=== PATIENT | male | born 1955 | race Caucasian/White ===

== ENCOUNTER 2016-11-03 13:53 | Emergency (ER) | payer BC ==
[2016-11-03 14:00] VITALS: BMI 27.1
--- NOTE | 2016-11-03 14:41 | PDOC ---
History of Present Illness - General History Source: Patient Exam Limitations: No Limitations - History of Present Illness Initial Comments: 11/03/16 14:56 The patient is a 60 year old male presenting with his , with a significant past medical history of CAD, HLD, kidney stones and BPH, who presents to the emergency department with left side flank pain onset today. He describes the pain as ranging from moderate to severe, rating it a 8/10 in severity. He denies any radiation or modifying factors. He notes that he took Percocet today , with little to no relief of his symptoms. He reports that last week he had a lithotripsy procedure on his right kidney for kidney stones. The patient denies chest pain, shortness of breath, headache and dizziness. Denies fever, chills, nausea, vomit, diarrhea and constipation. Denies dysuria, frequency, urgency and hematuria. Allergies: None Past surgical history: lithotripsy Social history: No alcohol, tobacco or drug use reported PMD - Dr. Shaka Bright <Ishmael Goss - Last Filed: 11/03/16 14:56> <Aleena Dimas - Last Filed: 11/04/16 13:19> - General Chief Complaint: Pain Stated Complaint: LT SIDE PAIN Time Seen by Provider: 11/03/16 14:32 Past History <Ishmael Goss - Last Filed: 11/03/16 14:56> - Past Medical History Cardiac Disorders: Yes Hypercholesterolemia: Yes Kidney Stones: Yes Suicide Attempt (Hx): No Other medical history: BPH - Immunization History Immunization Up to Date: Yes - Psycho/Social/Smoking Cessation Hx Anxiety: No Suicidal Ideation: No Smoking History: Never smoked Have you smoked in the past 12 months: No Hx Alcohol Use: No Drug/Substance Use Hx: No Substance Use Type: None <Aleena Dimas - Last Filed: 11/04/16 13:19> - Past Medical History Allergies/Adverse Reactions: Allergies Allergy/AdvReac Type Severity Reaction Status Date / Time No Known Allergies Allergy Verified 11/03/16 14:00 Home Medications: Ambulatory Orders Aspirin [ASA -] 1 tab PO DAILY 11/03/16 Atorvastatin Ca [Lipitor] 1 tab PO DAILY 11/03/16 Ciprofloxacin [Cipro -] 1 tab PO BID 11/03/16 Lisinopril [Zestril] 1 tab PO DAILY 11/03/16 Metoprolol Succinate [Toprol XL -] 0.5 tab PO DAILY 11/03/16 Oxycodone HCl/Acetaminophen [Percocet 5-325 mg Tablet] 1 tab PO Q4H PRN Tamsulosin HCl [Flomax] 1 tab PO DAILY 11/03/16 Ticagrelor [Brilinta] 90 mg PO BID 11/03/16 Review of Systems - Review of Systems Able to Perform ROS?: Yes Comments:: 11/03/16 14:57 GENERAL/CONSTITUTIONAL: No fever or chills. No weakness. HEAD, EYES, EARS, NOSE AND THROAT: No change in vision. No ear pain or discharge. No sore throat. CARDIOVASCULAR: No chest pain or shortness of breath RESPIRATORY: No cough, wheezing, or hemoptysis. GASTROINTESTINAL: No nausea, vomiting, diarrhea or constipation. GENITOURINARY: +Left flank pain. No dysuria, frequency, or change in urination. MUSCULOSKELETAL: No joint or muscle swelling or pain. No neck or back pain. SKIN: No rash NEUROLOGIC: No headache, vertigo, loss of consciousness, or change in strength/ sensation. ENDOCRINE: No increased thirst. No abnormal weight change HEMATOLOGIC/LYMPHATIC: No anemia, easy bleeding, or history of blood clots. ALLERGIC/IMMUNOLOGIC: No hives or skin allergy. <Ishmael Goss - Last Filed: 11/03/16 14:56> *Physical Exam - Vital Signs Last Vital Signs Temp Pulse Resp BP Pulse Ox 97.5 F L 20 L 59 H 122/71 97 11/03/16 13:58 11/03/16 13:58 11/03/16 13:58 11/03/16 13:58 11/03/16 13:58 - Physical Exam Comments: 11/03/16 14:57 GENERAL: Awake, alert, and fully oriented, in no acute distress HEAD: No signs of trauma, normocephalic, atraumatic EYES: PERRLA, EOMI, sclera anicteric, conjunctiva clear ENT: Auricles normal inspection, hearing grossly normal, nares patent, oropharynx clear without exudates. Moist mucosa NECK: Normal ROM, supple, no lymphadenopathy, JVD, or masses LUNGS: No distress, speaks full sentences, clear to auscultation bilaterally HEART: Regular rate and rhythm, normal S1 and S2, no murmurs, rubs or gallops, peripheral pulses normal and equal bilaterally. ABDOMEN: Soft, nontender, normoactive bowel sounds. No guarding, no rebound. No masses EXTREMITIES: Normal inspection, Normal range of motion, no edema. No clubbing or cyanosis. NEUROLOGICAL: Cranial nerves II through XII grossly intact. Normal speech, normal gait, no focal sensorimotor deficits SKIN: Warm, Dry, normal turgor, no rashes or lesions noted. <Ishmael Goss - Last Filed: 11/03/16 14:56> - Vital Signs Last Vital Signs Temp Pulse Resp BP Pulse Ox 97.5 F L 20 L 59 H 122/71 97 11/03/16 13:58 11/03/16 13:58 11/03/16 13:58 11/03/16 13:58 11/03/16 13:58 <Aleena Dimas - Last Filed: 11/04/16 13:19> ED Treatment Course - LABORATORY CBC & Chemistry Diagram: 11/03/16 15:00 11/03/16 15:00 <Aleena Dimas - Last Filed: 11/04/16 13:19> Medical Decision Making - Medical Decision Making 11/03/16 14:53 D/w Dr. Bright via phone. Will admit. Plan for lithotripsy. 11/03/16 16:[address] Young. Awaiting CT to further evaluate the L sided stones, possible hydro; then endorse to hospitalist service for admission. <Aleena Dimas - Last Filed: 11/04/16 13:19> *DC/Admit/Observation/Transfer - Attestations Scribe Attestion: 11/03/16 14:58 Documentation prepared by Ishmael Goss, acting as faculty i on call medical assistant for Aleena Dimas MD <Ishmael Goss - Last Filed: 11/03/16 14:56> <Aleena Dimas - Last Filed: 11/04/16 13:19> Diagnosis at time of Disposition: Kidney stone - Discharge Dispostion Disposition: HOME Condition at time of disposition: Improved - Referrals Referrals: Trey Weir MD [Primary Care Provider] - Robert Bright MD [Staff Physician] - - Patient Instructions Printed Discharge Instructions: DI for Kidney Stones Additional Instructions: Dr bright would like you to go to the office on Saturday at noon The plan will be for lithotripsy on Saturday Return to the ER for intractable pain, nausea, vomiting, fevers, chills, inability to tolerate foods, liquids or medications by mouth Print Language: KHMER
[2016-11-03] MEDS ORDERED: morphine CARPU-JECT 4 MG/1 ML DISP.SYRIN IVPUSH ONE (14:46)
[2016-11-03] MEDS ORDERED: SODIUM CHLORIDE 1,000 ML IV STA (14:46)
[2016-11-03] MEDS ORDERED: KETOROLAC TROMETHAMINE 30 MG/1 ML VIAL IVPUSH ONE (14:46)
[2016-11-03] MEDS ORDERED: KETOROLAC TROMETHAMINE 30 MG/1 ML VIAL ONE (14:52)
[2016-11-03] MEDS ORDERED: morphine CARPU-JECT 4 MG/1 ML DISP.SYRIN ONE (14:52)
[2016-11-03 15:06] LABS: BASOPHIL 0.4 % (0-2.0); EOSINOPHIL 2.1 % (0-4.5); MCH 30.2 pg (25.7-33.7); MCHC 33.5 g/dl (32.0-35.9); MEAN CELL VOLUME 90.1 fl (80-96); MEAN PLT VOLUME 8.4 fl (7.5-11.1); NEUTROPHILS 78.9 % (42.8-82.8); PLATELET COUNT 181 K/MM3 (134-434); RDW 14.8 % (11.9-15.9); WHITE BLOOD COUNT 8.9 K/mm3 (4.0-10.0)
[2016-11-03 15:14] LABS: INR 1.36 (0.82-1.09); PROTHROMBIN TIME (PATIENT) 15.1 SEC (9.98-11.88)
[2016-11-03 15:28] LABS: ALBUMIN 3.7 g/dl (3.4-5.0); BILIRUBIN,TOTAL 0.8 mg/dL (0.2-1.0); CALCIUM 8.7 mg/dL (8.5-10.1); CREATININE 1.3 mg/dL (0.7-1.3); TOT PROT 6.9 g/dl (6.4-8.2)
[2016-11-03 16:51] LABS: URINE APPEARANCE SLCLOUDY; URINE BILIRUBIN NEGATIVE (NEGATIVE); URINE COLOR YELLOW; URINE GLUCOSE (UA) NEGATIVE (NEGATIVE); URINE KETONE NEGATIVE (NEGATIVE); URINE NITRITE NEGATIVE (NEGATIVE); URINE UROBILINOGEN NEGATIVE E.U./dl (0.2-1.0)
[2016-11-03 16:53] LABS: URINE BLOOD 3+ (NEGATIVE); URINE LEUK ESTERASE TRACE (NEGATIVE); URINE PROTEIN 1+ (NEGATIVE)
[2016-11-03 16:55] LABS: URINE HYALINE CAST 2 /lpf; URINE MUCUS FEW; URINE RBC 682 /hpf (0-3); URINE WBC 18 /hpf (3-5)
--- NOTE | 2016-11-03 18:43 | PDOC ---
*Physical Exam - Vital Signs Last Vital Signs Temp Pulse Resp BP Pulse Ox 97.5 F L 57 L 19 114/79 97 11/03/16 13:58 11/03/16 16:42 11/03/16 16:42 11/03/16 16:42 11/03/16 16:42 <Vivian Whiting - Last Filed: 11/03/16 18:59> - Vital Signs Last Vital Signs Temp Pulse Resp BP Pulse Ox 97.5 F L 57 L 19 114/79 97 11/03/16 13:58 11/03/16 16:42 11/03/16 16:42 11/03/16 16:42 11/03/16 16:42 <Vicki Young - Last Filed: 11/06/16 08:14> ED Treatment Course - LABORATORY CBC & Chemistry Diagram: 11/03/16 15:00 11/03/16 15:00 - ADDITIONAL ORDERS Additional order review: Laboratory Results 11/03/16 11/03/16 11/03/16 16:17 15:00 15:00 INR 1.36 H Sodium 140 Potassium 3.9 D Chloride 102 Carbon Dioxide 28 Anion Gap 10 BUN 15 Creatinine 1.3 Creat Clearance w eGFR 56.50 Random Glucose 126 H Calcium 8.7 Total Bilirubin 0.8 D AST 39 H D ALT 70 D Alkaline Phosphatase 83 Total Protein 6.9 Albumin 3.7 Urine Color Yellow Urine Appearance Slcloudy Urine pH 5.0 D Ur Specific [place] 1.025 Urine Protein 1+ H Urine Glucose (UA) Negative Urine Ketones Negative Urine Blood 3+ H Urine Nitrite Negative Urine Bilirubin Negative Urine Urobilinogen Negative Ur Leukocyte Esterase Trace H Urine RBC 682 Urine WBC 18 Hyaline Casts 2 Urine Mucus Few 11/03/16 15:00 RBC 5.36 MCV 90.1 MCHC 33.5 RDW 14.8 MPV 8.4 Neutrophils % 78.9 D Lymphocytes % 12.1 D Monocytes % 6.5 Eosinophils % 2.1 Basophils % 0.4 - RADIOLOGY Radiograph Interpretation: 11/03/16 18:44 EXAM: CT abdomen and pelvis INTERPRETED BY: Dr. Banks REVIEWED BY: Dr. Young IMPRESSION: Findings of a partially obstructing stone of the proximal left ureter - Medications Given in the ED: ED Medications Discontinued Medications Generic Name Dose Route Start Last Admin Trade Name Freq PRN Reason Stop Dose Admin Sodium Chloride 1,000 mls @ 1,000 mls/hr 11/03/16 14:46 11/03/16 15:01 Normal Saline - IV 11/03/16 15:45 1,000 mls/hr ASDIR STA Administration Ketorolac Tromethamine 30 mg 11/03/16 14:46 11/03/16 15:01 Toradol Injection - IVPUSH 11/03/16 14:47 30 mg ONCE ONE Administration Morphine Sulfate 4 mg 11/03/16 14:46 11/03/16 15:02 Morphine Injection - IVPUSH 11/03/16 14:47 4 mg ONCE ONE Administration <Vivian Whiting - Last Filed: 11/03/16 18:59> - LABORATORY CBC & Chemistry Diagram: 11/03/16 15:00 11/03/16 15:00 - ADDITIONAL ORDERS Additional order review: Laboratory Results 11/03/16 11/03/16 11/03/16 16:17 15:00 15:00 INR 1.36 H Sodium 140 Potassium 3.9 D Chloride 102 Carbon Dioxide 28 Anion Gap 10 BUN 15 Creatinine 1.3 Creat Clearance w eGFR 56.50 Random Glucose 126 H Calcium 8.7 Total Bilirubin 0.8 D AST 39 H D ALT 70 D Alkaline Phosphatase 83 Total Protein 6.9 Albumin 3.7 Urine Color Yellow Urine Appearance Slcloudy Urine pH 5.0 D Ur Specific [place] 1.025 Urine Protein 1+ H Urine Glucose (UA) Negative Urine Ketones Negative Urine Blood 3+ H Urine Nitrite Negative Urine Bilirubin Negative Urine Urobilinogen Negative Ur Leukocyte Esterase Trace H Urine RBC 682 Urine WBC 18 Hyaline Casts 2 Urine Mucus Few 11/03/16 15:00 RBC 5.36 MCV 90.1 MCHC 33.5 RDW 14.8 MPV 8.4 Neutrophils % 78.9 D Lymphocytes % 12.1 D Monocytes % 6.5 Eosinophils % 2.1 Basophils % 0.4 - Medications Given in the ED: ED Medications Discontinued Medications Generic Name Dose Route Start Last Admin Trade Name Freq PRN Reason Stop Dose Admin Sodium Chloride 1,000 mls @ 1,000 mls/hr 11/03/16 14:46 11/03/16 15:01 Normal Saline - IV 11/03/16 15:45 1,000 mls/hr ASDIR STA Administration Ketorolac Tromethamine 30 mg 11/03/16 14:46 11/03/16 15:01 Toradol Injection - IVPUSH 11/03/16 14:47 30 mg ONCE ONE Administration Morphine Sulfate 4 mg 11/03/16 14:46 11/03/16 15:02 Morphine Injection - IVPUSH 11/03/16 14:47 4 mg ONCE ONE Administration <Vicki Young - Last Filed: 11/06/16 08:14> Medical Decision Making - Medical Decision Making 11/03/16 18:46 First call placed to Dr. Bright's answering service at 18:42. Awaiting call back. Second call placed to Dr. Bright at 18:59. Awaiting call back. <Vivian Whiting - Last Filed: 11/03/16 18:59> - Medical Decision Making 11/03/16 18:31 I received this patient in signout. Briefly he is a 60-year-old male presents emergency department with complaint of left flank pain. He recently right-sided lithotripsy. Patient already on Cipro. Patient signed out to me awaiting CT scan. CT significant for: Perinephric stranding on the left side with mild dilatation of the left ureter and partially obstructive 5 mm stone proximal left ureter. Plan per Dr Bright was to admit I have had a discussion with patient and family and he does not want to be admitted Will contact Dr Bright and see if he agrees with discharge 11/03/16 19:[address] Bright He is ok with pt going home Pt understands reasons for return to the ER ( we have discussed the following, fever, increased pain, intractable nausea or vomiting, pain not controlled by po pain medications) Pt will go to the office on Saturday at noon Plan for lithotripsy on Saturday <Vicki Young - Last Filed: 11/06/16 08:14> *DC/Admit/Observation/Transfer - Attestations Scribe Attestion: 11/03/16 18:45 Documentation prepared by Vivian Whiting, acting as medical coder for Vicki Young MD. <Vivian Whiting - Last Filed: 11/03/16 18:59> - Discharge Dispostion Admit: No <Vicki Young - Last Filed: 11/06/16 08:14> Diagnosis at time of Disposition: Kidney stone - Discharge Dispostion Disposition: HOME Condition at time of disposition: Improved - Referrals Referrals: Trey Weir MD [Primary Care Provider] - Robert Bright MD [Staff Physician] - - Patient Instructions Printed Discharge Instructions: DI for Kidney Stones Additional Instructions: Dr bright would like you to go to the office on Saturday at noon The plan will be for lithotripsy on Saturday Return to the ER for intractable pain, nausea, vomiting, fevers, chills, inability to tolerate foods, liquids or medications by mouth Print Language: MALTESE - Post Discharge Activity
[2016-11-03 19:15] VITALS: BP 113/66; PULSE 60; TEMP 98.1
== END 2016-11-03 19:32 | disposition home or self-care (01) ==
LOC: JER 13:53
PROC: 3E033NZ Introduction of Analgesics, Hypnotics, Sedatives into Peripheral Vein, Percutaneous Approach (ICD-10-PCS; principal; 2016-11-03)
PROC: 3E0333Z Introduction of Anti-inflammatory into Peripheral Vein, Percutaneous Approach (ICD-10-PCS; 2016-11-03)
DX: N20.1 Calculus of ureter (principal); Z87.442 Personal history of urinary calculi; I25.10 Atherosclerotic heart disease of native coronary artery without angina pectoris; E78.00 Pure hypercholesterolemia, unspecified; N40.0 Benign prostatic hyperplasia without lower urinary tract symptoms
CPT/HCPCS: 36415; 74176; 80053; 81003; 81015; 85025; 85610; 99283-25

== ENCOUNTER 2016-11-06 13:52 | Day surgery (SDC) | payer BC ==
[2016-11-05 16:21] VITALS: BMI 27.5
--- NOTE | 2016-11-06 15:56 | EKG ---
Test Reason : Blood Pressure : / mmHG Vent. Rate : 061 BPM Atrial Rate : 061 BPM P-R Int : 126 ms QRS Dur : 088 ms QT Int : 428 ms P-R-T Axes : 021 012 035 degrees QTc Int : 430 ms NORMAL SINUS RHYTHM NORMAL ECG WHEN COMPARED WITH ECG OF 03-FEB-2016 11:03, Confirmed by ROSMERY GALE, SOPHIA ([id number]) on 11/06/2016 3:56:05 PM Referred By: Robert Bright Confirmed By:SOPHIA BOTELLO MD
[2016-11-06] MEDS ORDERED: PROPOFOL 20 ML ONE ×2 (16:02→16:27)
[2016-11-06] MEDS ORDERED: MIDAZOLAM HCL 2 MG/2 ML SINGLE DOSE VIAL ONE (16:02)
[2016-11-06] MEDS ORDERED: LIDOCAINE HCL/PF 2% SDV 5ML VIAL ONE (16:04)
[2016-11-06] MEDS ORDERED: ceFAZolin SODIUM 1 GM VIAL IVPB ONE (16:13)
[2016-11-06] MEDS ORDERED: DEXAMETHASONE SOD PHOSPHATE 4 MG/1 ML VIAL ONE (16:14)
--- NOTE | 2016-11-06 16:46 | OP ---
Operative Note - Note: Operative Date: 11/06/16 Pre-Operative Diagnosis: Left renal colic, left hydronephrosis, left ureteral calculus. Operation: cysto left ureteral stent placement Findings: Xray did not show any calculus. Phelebolith seen. Post-Operative Diagnosis: Same as Pre-op Surgeon: Ju Nickerson Anesthesia: General Drains & Tubes with Location: 22mm stent 6mm
[2016-11-06] MEDS ORDERED: oxyCODONE HCL 5 MG TABLET PO PRN (17:01)
[2016-11-06] MEDS ORDERED: ONDANSETRON 4 MG/2 ML VIAL IVPUSH PRN (17:01)
[2016-11-06] MEDS ORDERED: ACETAMINOPHEN 500 MG TABLET (FP) PO PRN (17:01)
[2016-11-06 17:56] VITALS: TEMP 97.9
[2016-11-06 19:13] VITALS: BP 129/71; PULSE 52
--- NOTE | 2016-11-07 11:23 | OP ---
DATE OF OPERATION: 11/06/2016 SURGEON: Ju Nickerson MD ANESTHESIA: General. PREOPERATIVE DIAGNOSES: Left renal colic. Left hydronephrosis. Left ureteral calculus. POSTOPERATIVE DIAGNOSES: Left renal colic. Left hydronephrosis. Left ureteral calculus. PROCEDURES: Cystoscopy. Placement of left ureteral stent. FINDINGS: Urethra normal. Bladder showed no abnormality. Left ureteral orifice slightly laterally placed and the x-ray taken at this point showed no evidence of ureteral calculus on the left side. PROCEDURE: Patient in lithotomy position under anesthesia was prepped and draped in the usual manner. Using a 22-scope, cystoscopy performed and with some difficulty guide wire placed in the left ureteral orifice. Bleeding encountered throughout the procedure, as the patient is on some blood thinners. At this point, discussing with the anesthesiologist, it was decided not to proceed with any laser procedure and just place a stent. The guide wire that was placed previously was confirmed with the x-ray and a 22 x 6-mm stent placed in the right collecting system was confirmed with x-ray. The patient tolerated the procedure well and left the operating room in a satisfactory condition. JU NICKERSON M.D. [id number]
== END 2016-11-06 19:15 | disposition home or self-care (01) ==
LOC: JASU-SURG 13:52 → JOR 13:52 → JASU-SURG 19:15
PROVIDERS: ATTEND Urology
PROC: 0T778DZ Dilation of Left Ureter with Intraluminal Device, Via Natural or Artificial Opening Endoscopic (ICD-10-PCS; principal; 2016-11-06 16:00)
DX: N13.2 Hydronephrosis with renal and ureteral calculous obstruction (principal); N23 Unspecified renal colic
CPT/HCPCS: 76000-TC; 93005; 93010; 94760

== ENCOUNTER 2016-12-11 16:54 | Emergency (ER) | payer BC ==
[2016-12-11 17:00] VITALS: TEMP 97.4; BMI 25.8
--- NOTE | 2016-12-11 18:41 | PDOC ---
History of Present Illness - General History Source: Patient Exam Limitations: No Limitations <Ishmael Goss - Last Filed: 12/11/16 21:49> <Erika Shore - Last Filed: 12/12/16 02:06> - General Chief Complaint: Lightheaded Stated Complaint: DIZZINESS Time Seen by Provider: 12/11/16 18:21 - History of Present Illness Initial Comments: 12/11/16 20:54 The patient is a 60 year old male, with a significant past medical history of CAD, RI (01/2016) s/p cardiac stents, HTN, HLD, kidney stones and BPH, who presents to the emergency department with dizziness. He describes the dizziness as if the room was spinning. He notes that he was seen at urgent care today and has not had relief. He notes that he has a follow up appointment with his [employer] supervisor on 12/13/2016. The patient denies chest pain, shortness of breath and headache. Denies fever, chills, nausea, vomit, diarrhea and constipation. Denies dysuria, frequency, urgency and hematuria. Allergies: None Past surgical history: lithotripsy, LEFT INGUINAL HERNIA REPAIR, CARDIAC STENT Social history: No alcohol, tobacco or drug use reported PMD - Dr. Trey Weir Cardio - Dr. Patel (Ishmael Goss) Past History <Ishmael Goss - Last Filed: 12/11/16 21:49> - Past Medical History Cardiac Disorders: Yes (RI 01/25) HTN: Yes Hypercholesterolemia: Yes Kidney Stones: Yes Suicide Attempt (Hx): No Other medical history: kidney stones - Surgical History Abdominal Surgery: Yes (LEFT INGUINAL HERNIA REPAIR) Cardiac Surgery: Yes (CARDIAC STENT 02/03/16) - Immunization History Immunization Up to Date: Yes - Psycho/Social/Smoking Cessation Hx Anxiety: No Suicidal Ideation: No Smoking History: Never smoked Have you smoked in the past 12 months: No Information on smoking cessation initiated: No Hx Alcohol Use: No Drug/Substance Use Hx: No Substance Use Type: None Hx Substance Use Treatment: No <Erika Shore - Last Filed: 12/12/16 02:06> - Past Medical History Allergies/Adverse Reactions: Allergies Allergy/AdvReac Type Severity Reaction Status Date / Time No Known Allergies Allergy Verified 12/11/16 16:57 Home Medications: Ambulatory Orders Aspirin [ASA -] 1 tab PO DAILY 11/03/16 Atorvastatin Ca [Lipitor] 1 tab PO HS 11/03/16 Lisinopril [Zestril] 1 tab PO DAILY 11/03/16 Metoprolol Succinate [Toprol XL -] 12.5 mg PO HS 11/03/16 Oxycodone HCl/Acetaminophen [Percocet 5-325 mg Tablet] 1 tab PO Q4H PRN Tamsulosin HCl [Flomax] 1 tab PO HS 11/03/16 Ticagrelor [Brilinta] 90 mg PO BID 11/03/16 Meclizine HCl 25 mg PO QID PRN #20 tab.chew 12/11/16 Ondansetron [Zofran Odt -] 4 mg SL TID PRN #12 od.tablet 12/11/16 Review of Systems - Review of Systems Able to Perform ROS?: Yes <Ishmael Goss - Last Filed: 12/11/16 21:49> <Erika Shore - Last Filed: 12/12/16 02:06> - Review of Systems Comments:: 12/11/16 20:55 GENERAL/CONSTITUTIONAL: No fever or chills. No weakness. HEAD, EYES, EARS, NOSE AND THROAT: No change in vision. No ear pain or discharge. No sore throat. CARDIOVASCULAR: No chest pain or shortness of breath RESPIRATORY: No cough, wheezing, or hemoptysis. GASTROINTESTINAL: No nausea, vomiting, diarrhea or constipation. GENITOURINARY: No dysuria, frequency, or change in urination. MUSCULOSKELETAL: No joint or muscle swelling or pain. No neck or back pain. SKIN: No rash NEUROLOGIC: (+) Dizziness. No headache, loss of consciousness, or change in strength/sensation. ENDOCRINE: No increased thirst. No abnormal weight change HEMATOLOGIC/LYMPHATIC: No anemia, easy bleeding, or history of blood clots. ALLERGIC/IMMUNOLOGIC: No hives or skin allergy. (Ishmael Goss) *Physical Exam <Ishmael Goss - Last Filed: 12/11/16 21:49> <Erika Shore - Last Filed: 12/12/16 02:06> - Vital Signs Last Vital Signs Temp Pulse Resp BP Pulse Ox 97.4 F L 60 20 99/60 100 12/11/16 16:57 12/11/16 22:56 12/11/16 22:56 12/11/16 22:56 12/11/16 22:56 - Physical Exam Comments: 12/11/16 20:55 GENERAL: Awake, alert, and fully oriented, in no acute distress HEAD: No signs of trauma, normocephalic, atraumatic EYES: PERRLA, EOMI, sclera anicteric, conjunctiva clear ENT: Auricles normal inspection, hearing grossly normal, nares patent, oropharynx clear without exudates. Moist mucosa NECK: Normal ROM, supple, no lymphadenopathy, JVD, or masses LUNGS: No distress, speaks full sentences, clear to auscultation bilaterally HEART: Regular rate and rhythm, normal S1 and S2, no murmurs, rubs or gallops, peripheral pulses normal and equal bilaterally. ABDOMEN: Soft, nontender, normoactive bowel sounds. No guarding, no rebound. No masses EXTREMITIES: Normal inspection, Normal range of motion, no edema. No clubbing or cyanosis. NEUROLOGICAL: Cranial nerves II through XII grossly intact. Normal speech, normal gait, no focal sensorimotor deficits SKIN: Warm, Dry, normal turgor, no rashes or lesions noted. (Ishmael Goss) ED Treatment Course - LABORATORY CBC & Chemistry Diagram: 12/11/16 19:31 12/11/16 19:31 <Ishmael Goss - Last Filed: 12/11/16 21:49> - LABORATORY CBC & Chemistry Diagram: 12/11/16 19:31 12/11/16 19:31 <Erika Shore - Last Filed: 12/12/16 02:06> - ADDITIONAL ORDERS Additional order review: Laboratory Results 12/11/16 12/11/16 12/11/16 19:31 19:31 19:31 INR Sodium 141 Potassium 3.9 Chloride 104 Carbon Dioxide 28 Anion Gap 9 BUN 15 Creatinine 1.0 D Creat Clearance w eGFR > 60 Random Glucose 102 Calcium 8.7 Total Bilirubin 0.6 D AST 38 H ALT 52 D Alkaline Phosphatase 84 Creatine Kinase 480 H D Creatine Kinase Index 0.9 CK-MB (CK-2) 4.367 H CK-MB (CK-2) Rel Index Cancelled Troponin I < 0.02 D B-Natriuretic Peptide 69.07 Total Protein 6.8 Albumin 3.8 Urine Color Urine Appearance Urine pH Ur Specific [place] Urine Protein Urine Glucose (UA) Urine Ketones Urine Blood Urine Nitrite Urine Bilirubin Urine Urobilinogen Ur Leukocyte Esterase Urine RBC Urine WBC Ur Epithelial Cells Urine Mucus Blood Type Antibody Screen 12/11/16 12/11/16 12/11/16 19:31 19:31 19:08 INR 1.22 H Sodium Potassium Chloride Carbon Dioxide Anion Gap BUN Creatinine Creat Clearance w eGFR Random Glucose Calcium Total Bilirubin AST ALT Alkaline Phosphatase Creatine Kinase Creatine Kinase Index CK-MB (CK-2) CK-MB (CK-2) Rel Index Troponin I B-Natriuretic Peptide Total Protein Albumin Urine Color Ltyellow Urine Appearance Clear Urine pH 6.0 Ur Specific [place] 1.019 Urine Protein Negative Urine Glucose (UA) Negative Urine Ketones Trace H Urine Blood Negative Urine Nitrite Negative Urine Bilirubin Negative Urine Urobilinogen Negative Ur Leukocyte Esterase Trace H Urine RBC 2 Urine WBC 1 Ur Epithelial Cells Rare Urine Mucus Rare Blood Type O POSITIVE Antibody Screen Negative 12/11/16 19:31 RBC 4.90 MCV 89.9 MCHC 33.8 RDW 14.4 MPV 8.7 Neutrophils % 85.6 H Lymphocytes % 10.7 Monocytes % 3.3 L Eosinophils % 0.2 D Basophils % 0.2 - RADIOLOGY Radiology Studies Ordered: Category Date Time Status HEAD CT WITHOUT CONTRAST [CT] Stat CT Scan 12/11/16 19:15 Completed CHEST X-RAY PORTABLE* [RAD] Stat Radiology 12/11/16 18:43 Taken Radiograph Interpretation: 12/11/16 20:[address] Reviewed by: Dr. Josh Hernandez Impression: No CT evidence of acute pathology is identified. (Ishmael Goss) - Medications Given in the ED: ED Medications Discontinued Medications Generic Name Dose Route Start Last Admin Trade Name Freq PRN Reason Stop Dose Admin Diazepam 5 mg 12/11/16 21:49 12/11/16 22:15 Valium - PO 12/11/16 21:50 5 mg ONCE ONE Administration Meclizine HCl 25 mg 12/11/16 18:56 12/11/16 19:18 Antivert - PO 12/11/16 18:57 25 mg ONCE ONE Administration Ondansetron HCl 4 mg 12/11/16 19:16 12/11/16 19:33 Zofran Injection IVPUSH 12/11/16 19:17 4 mg ONCE ONE Administration Ondansetron HCl 4 mg 12/11/16 20:46 12/11/16 20:51 Zofran Injection IVPUSH 12/11/16 20:47 4 mg ONCE ONE Administration Medical Decision Making <Ishmael Goss - Last Filed: 12/11/16 21:49> <Erika Shore - Last Filed: 12/12/16 02:06> - Medical Decision Making 12/11/16 21:51 60 yo male visited [facility] for vomiting and dizziness that were positional -he denies any fever,chills,abd pain,chest pain , dyspnea,head trauma, recent URI -Patient has a past medical history of coronary artery disease, [place] 2015 Patient does not have any gross focal neural deficits. His labs were reviewed and were found to be unremarkable. CAT scan of his head was negative for any acute intracranial pathology Patient symptoms resolved with meclizine and Valium Patient does have an appointment later today with his physician and was discharged home with family 12/12/16 02:05 (Erika Shore) *DC/Admit/Observation/Transfer <Ishmael Goss - Last Filed: 12/11/16 21:49> <Erika Shore - Last Filed: 12/12/16 02:06> Diagnosis at time of Disposition: Vertigo - Discharge Dispostion Disposition: HOME Condition at time of disposition: Stable - Prescriptions Prescriptions: Meclizine HCl 25 mg PO QID PRN #20 tab.chew PRN Reason: Vertigo Ondansetron [Zofran Odt -] 4 mg SL TID PRN #12 od.tablet PRN Reason: Nausea And/Or Vomiting - Referrals Referrals: Trey Weir MD [Primary Care Provider] - - Patient Instructions Printed Discharge Instructions: DI for Benign Paroxysmal Positional Vertigo Additional Instructions: please followup with your physician this week - Attestations Scribe Attestion: 12/11/16 20:56 Documentation prepared by Ishmael Goss, acting as biomedical equipment specialist for Erika Shore MD (Ishmael Goss)
[2016-12-11] MEDS ORDERED: MECLIZINE HCL 25 MG TABLET (FP) PO ONE (18:56)
[2016-12-11] MEDS ORDERED: ONDANSETRON 4 MG/2 ML VIAL IVPUSH ONE ×2 (19:16→20:46)
[2016-12-11] MEDS ORDERED: MECLIZINE HCL 25 MG TABLET (FP) ONE (19:17)
[2016-12-11] MEDS ORDERED: ONDANSETRON 4 MG/2 ML VIAL ONE ×2 (19:33→20:48)
[2016-12-11 19:52] LABS: BASOPHIL 0.2 % (0-2.0); EOSINOPHIL 0.2 % (0-4.5); MCH 30.4 pg (25.7-33.7); MCHC 33.8 g/dl (32.0-35.9); MEAN CELL VOLUME 89.9 fl (80-96); MEAN PLT VOLUME 8.7 fl (7.5-11.1); NEUTROPHILS 85.6 % (42.8-82.8); PLATELET COUNT 195 K/MM3 (134-434); RDW 14.4 % (11.9-15.9); WHITE BLOOD COUNT 9.2 K/mm3 (4.0-10.0)
[2016-12-11 19:53] LABS: URINE APPEARANCE CLEAR; URINE BILIRUBIN NEGATIVE (NEGATIVE); URINE BLOOD NEGATIVE (NEGATIVE); URINE COLOR LTYELLOW; URINE GLUCOSE (UA) NEGATIVE (NEGATIVE); URINE KETONE TRACE (NEGATIVE); URINE NITRITE NEGATIVE (NEGATIVE); URINE PROTEIN NEGATIVE (NEGATIVE); URINE UROBILINOGEN NEGATIVE E.U./dl (0.2-1.0)
[2016-12-11 20:12] LABS: URINE LEUK ESTERASE TRACE (NEGATIVE)
[2016-12-11 20:18] LABS: INR 1.22 (0.82-1.09); PROTHROMBIN TIME (PATIENT) 13.5 SEC (9.98-11.88)
[2016-12-11 20:21] LABS: URINE MUCUS RARE; URINE RBC 2 /hpf (0-3); URINE WBC 1 /hpf (3-5)
[2016-12-11 20:30] LABS: ALBUMIN 3.8 g/dl (3.4-5.0); ANION GAP 9 (8-16); BILIRUBIN,TOTAL 0.6 mg/dL (0.2-1.0); CALCIUM 8.7 mg/dL (8.5-10.1); CO2 28 mmol/L (21-32); COCKROFT - GAULT 81.64; GLUCOSE,RANDOM 102 mg/dL (74-106); SGOT/AST 38 U/L (15-37); SGPT/ALT 52 U/L (12-78); TOT PROT 6.8 g/dl (6.4-8.2)
[2016-12-11 20:33] LABS: ALK PHOS 84 U/L (45-117); TROPONIN I < 0.02 ng/ml (0.00-0.05)
[2016-12-11] MEDS ORDERED: diazePAM 5 MG TABLET PO ONE (21:49)
[2016-12-11] MEDS ORDERED: diazePAM 5 MG TABLET ONE (22:09)
[2016-12-11 22:57] VITALS: BP 99/60; PULSE 60
--- NOTE | 2016-12-12 11:02 | EKG ---
Test Reason : Blood Pressure : / mmHG Vent. Rate : 050 BPM Atrial Rate : 050 BPM P-R Int : 136 ms QRS Dur : 090 ms QT Int : 468 ms P-R-T Axes : 029 -02 032 degrees QTc Int : 426 ms SINUS BRADYCARDIA WITH PREMATURE ATRIAL COMPLEXES WITH ABERRANT CONDUCTION INFERIOR INFARCT , AGE UNDETERMINED ABNORMAL ECG WHEN COMPARED WITH ECG OF 06-NOV-2016 13:12, ABERRANT CONDUCTION IS NOW PRESENT Confirmed by AMARA GALE, TRE ([id number]) on 12/12/2016 11:02:24 AM Referred By: Confirmed By:TRE MALONEY MD
== END 2016-12-11 23:05 | disposition home or self-care (01) ==
LOC: JER 16:54
PROC: 3E033GC Introduction of Other Therapeutic Substance into Peripheral Vein, Percutaneous Approach (ICD-10-PCS; principal; 2016-12-11)
DX: H81.10 Benign paroxysmal vertigo, unspecified ear (principal); I25.2 Old myocardial infarction; I25.10 Atherosclerotic heart disease of native coronary artery without angina pectoris; I10 Essential (primary) hypertension; Z95.5 Presence of coronary angioplasty implant and graft; N40.0 Benign prostatic hyperplasia without lower urinary tract symptoms; Z87.442 Personal history of urinary calculi
CPT/HCPCS: 36415; 70450-TC; 71010-TC; 80053; 81003; 81015; 82550; 82553; 83880; 84484; 85025; 85610; 86850; 86900; 86901; 93005; 93010; 99284-25

== ENCOUNTER 2017-08-29 20:21 | Inpatient (IN) | payer BC, OTHER ==
[2017-08-29 20:49] VITALS: BMI 25.8
[2017-08-29] MEDS ORDERED: ACETAMINOPHEN 325 MG TABLET (FP) PO ONE (20:49)
--- NOTE | 2017-08-29 20:49 | PDOC ---
Rapid Medical Evaluation Medical Evaluation: Allergies Allergy/AdvReac Type Severity Reaction Status Date / Time No Known Allergies Allergy Verified 12/11/16 16:57 08/29/17 20:44 I have performed a brief in person evaluation of this patient. The patient presents with chief complaint of : burning on urination and fever since today. history of BPH, [place] with stent. Pt sent from urgent care for further workup. tylenol 500mg at 5pm. Pertinent PE findings: 101.2 I have ordered the following: urinalysis, urine culture , tylenol 650mg The patient will proceed to the ER for further evaluation.
[2017-08-29] MEDS ORDERED: ACETAMINOPHEN 500 MG TABLET (FP) PO ONE (20:50)
[2017-08-29 21:37] LABS: BASO % 0.2 % (0-2.0); EOS % 0.1 % (0-4.5); HEMOGLOBIN 15.3 GM/dL (11.7-16.9); LYMPH % 5.9 % (8-40); MCHC 33.2 g/dl (32.0-35.9); MEAN CELL VOLUME 90.4 fl (80-96); MEAN PLT VOLUME 7.9 fl (7.5-11.1); MONO % 7.5 % (3.8-10.2); NEUT % 86.3 % (42.8-82.8); PLATELET COUNT 274 K/MM3 (134-434); RBC 5.09 M/mm3 (4.00-5.60); RDW 13.9 % (11.9-15.9); WHITE BLOOD COUNT 18.2 K/mm3 (4.0-10.0)
[2017-08-29 21:39] LABS: URINE APPEARANCE CLOUDY; URINE BILIRUBIN NEGATIVE (NEGATIVE); URINE BLOOD 2+ (NEGATIVE); URINE COLOR YELLOW; URINE GLUCOSE (UA) NEGATIVE (NEGATIVE); URINE KETONE NEGATIVE (NEGATIVE); URINE NITRITE NEGATIVE (NEGATIVE)
[2017-08-29 21:44] LABS: URINE LEUK ESTERASE 3+ (NEGATIVE); URINE PROTEIN 1+ (NEGATIVE)
[2017-08-29 21:47] LABS: URINE MUCUS RARE
[2017-08-29 22:19] LABS: ALBUMIN 4.4 g/dl (3.4-5.0); ANION GAP 8 (8-16); BILIRUBIN,TOTAL 0.9 mg/dL (0.2-1.0); BLOOD UREA NITROGEN 24 mg/dL (7-18); CALCIUM 9.3 mg/dL (8.5-10.1); CHLORIDE 100 mmol/L (98-107); CO2 28 mmol/L (21-32); CREATININE 1.6 mg/dL (0.7-1.3); GLUCOSE,RANDOM 98 mg/dL (74-106); POTASSIUM 4.1 mmol/L (3.5-5.1); SGOT/AST 28 U/L (15-37); SGPT/ALT 44 U/L (12-78); SODIUM 136 mmol/L (136-145); TOT PROT 7.8 g/dl (6.4-8.2)
[2017-08-29 22:20] LABS: ALK PHOS 60 U/L (45-117)
--- NOTE | 2017-08-30 01:05 | PDOC ---
History of Present Illness - General Chief Complaint: Urinary Problem Stated Complaint: PCP SENT/INFECTION Time Seen by Provider: 08/30/17 00:36 History Source: Patient Exam Limitations: No Limitations - History of Present Illness Travel History: No Initial Comments: 08/30/17 01:00 This is 61-year-old male with past medical history of CAD, [place] with stents 2- 2015, hypertension, hyperlipidemia, BPH, renal calculi with ureteral stents 2 removed in October 2016 who was sent to the emergency department by his primary doctor for dysuria, leukocytosis and ARF. Patient states that apparently 5 PM this afternoon began to experience dysuria, urinary frequency, urinary urgency pain in his lower back and chills. He checked his temperature and was febrile to 102.0 at home. He took some Tylenol then went to see his primary doctor at [facility] [place] who performed blood work, urine studies and sent the patient to emergency department. Patient denies headaches, shortness of breath, chest pain. PMD: [facility] at [place] Urologist: Robert Bright Past History - Past Medical History Allergies/Adverse Reactions: Allergies Allergy/AdvReac Type Severity Reaction Status Date / Time No Known Allergies Allergy Verified 12/11/16 16:57 Home Medications: Ambulatory Orders Aspirin [ASA -] 1 tab PO DAILY 11/03/16 Atorvastatin Ca [Lipitor] 1 tab PO HS 11/03/16 Lisinopril [Zestril] 1 tab PO DAILY 11/03/16 Metoprolol Succinate [Toprol XL -] 12.5 mg PO HS 11/03/16 Oxycodone HCl/Acetaminophen [Percocet 5-325 mg Tablet] 1 tab PO Q4H PRN Tamsulosin HCl [Flomax] 1 tab PO HS 11/03/16 Ticagrelor [Brilinta] 90 mg PO BID 11/03/16 Meclizine HCl 25 mg PO QID PRN #20 tab.chew 12/11/16 Ondansetron [Zofran Odt -] 4 mg SL TID PRN #12 od.tablet 12/11/16 Cardiac Disorders: Yes (SC 01/25) COPD: No HTN: Yes Hypercholesterolemia: Yes Kidney Stones: Yes Other medical history: BPH - Surgical History Abdominal Surgery: Yes (LEFT INGUINAL HERNIA REPAIR) Cardiac Surgery: Yes (CARDIAC STENT 02/03/16) - Immunization History Immunization Up to Date: Yes - Suicide/Smoking/Psychosocial Hx Smoking History: Never smoked Have you smoked in the past 12 months: No Information on smoking cessation initiated: No Hx Alcohol Use: No Drug/Substance Use Hx: No Substance Use Type: None Hx Substance Use Treatment: No Review of Systems - Review of Systems Able to Perform ROS?: Yes Is the patient limited Barbadian proficient: No Constitutional: Yes: See HPI HEENTM: No: Symptoms Reported Respiratory: No: Symptoms reported Cardiac (ROS): No: Symptoms Reported ABD/GI: No: Symptoms Reported : Yes: See HPI Musculoskeletal: Yes: See HPI Integumentary: No: Symptoms Reported Neurological: No: Symptoms reported Endocrine: No: Symptoms Reported Hematologic/Lymphatic: No: Symptoms Reported *Physical Exam - Vital Signs Last Vital Signs Temp Pulse Resp BP Pulse Ox 101.7 F H 100 H 18 112/76 100 08/29/17 20:46 08/29/17 20:46 08/29/17 20:46 08/29/17 20:46 08/29/17 20:46 - Physical Exam General Appearance: Yes: Appropriately Dressed. No: Apparent Distress HEENT: positive: LIZZETTE, Normal ENT Inspection Neck: positive: Trachea midline, Supple Respiratory/Chest: positive: Lungs Clear, Normal Breath Sounds. negative: Respiratory Distress, Accessory Muscle Use Cardiovascular: positive: Regular Rhythm, Regular Rate, S1, S2. negative: Edema , Murmur Gastrointestinal/Abdominal: positive: Normal Bowel Sounds, Tender (over suprapubic region), Soft Musculoskeletal: positive: Normal Inspection. negative: CVA Tenderness Extremity: positive: Normal Capillary Refill, Normal Inspection Integumentary: positive: Normal Color, Dry, Warm Neurologic: positive: Fully Oriented, Alert, Normal Mood/Affect, Normal Response , Motor Strength 5/5 Heart Score/ECG Review - ECG Intrepretation Rhythm: Regular Rhythm - [place]: Normal - ECG Impressions Normal ECG: Yes ED Treatment Course - LABORATORY CBC & Chemistry Diagram: 08/29/17 21:25 08/29/17 21:25 - ADDITIONAL ORDERS Additional order review: Laboratory Results 08/29/17 08/29/17 21:25 21:25 Sodium 136 Potassium 4.1 Chloride 100 Carbon Dioxide 28 Anion Gap 8 BUN 24 H D Creatinine 1.6 H D Creat Clearance w eGFR 44.31 Random Glucose 98 Calcium 9.3 Total Bilirubin 0.9 D AST 28 D ALT 44 Alkaline Phosphatase 60 D Total Protein 7.8 Albumin 4.4 Urine Color Yellow Urine Appearance Cloudy Urine pH 5.0 Ur Specific [place] 1.019 Urine Protein 1+ H Urine Glucose (UA) Negative Urine Ketones Negative Urine Blood 2+ H Urine Nitrite Negative Urine Bilirubin Negative Urine Urobilinogen 2.0 Ur Leukocyte Esterase 3+ H D Urine WBC (Auto) 1008 Urine RBC (Auto) 38 Urine Mucus Rare 08/29/17 21:25 RBC 5.09 MCV 90.4 MCHC 33.2 RDW 13.9 MPV 7.9 Neutrophils % 86.3 H Lymphocytes % 5.9 L D Monocytes % 7.5 D Eosinophils % 0.1 Basophils % 0.2 - Medications Given in the ED: ED Medications Discontinued Medications Generic Name Dose Route Start Last Admin Trade Name Freq PRN Reason Stop Dose Admin Acetaminophen 1,000 mg 08/29/17 20:50 08/29/17 20:55 Tylenol - PO 08/29/17 20:51 1,000 mg ONCE ONE Administration Medical Decision Making - Medical Decision Making 08/30/17 01:05 A/P: This is 61-year-old male with past medical history of CAD, [place] with stents 2- 2015, hypertension, hyperlipidemia, BPH, renal calculi with ureteral stents 2 removed in October 2016 who was sent to the emergency department by his primary doctor for dysuria, leukocytosis and ARF. Patient states that apparently 5 PM this afternoon began to experience dysuria, urinary frequency, urinary urgency pain in his lower back and chills. He checked his temperature and was febrile to 102.0 at home. He took some Tylenol then went to see his primary doctor at [facility] [place] who performed blood work, urine studies and sent the patient to emergency department. Patient denies headaches, shortness of breath, chest pain. Lungs clear to auscultation bilaterally. Regular rate and rhythm. No murmur rub or gallop noted. Abdomen soft nondistended with tenderness over the suprapubic area. No CVA tenderness present. Laboratory testing done in rapid medical evaluation reveals leukocytosis with a WBC of 18.2, GYPSY with creatinine 1.6 up from a baseline of 1.0 and azotemia with BUN 24 up from a baseline of 15. UA reveals WBC of 1008. patient meets her's criteria with tachycardia, fever , and leukocytosis. Diagnosis: Sepsis with urinary source In addition to previous testing, I'll collect blood cultures and lactate level. I will give the patient IV fluids NS 1 L bolus. I will get a CT of the abdomen to rule out urinary obstruction. CXR. Ceftriaxone 1 g IV now. After all testing is been completed will admit patient to hospitalist service. 08/30/17 02:[address] Butts who accepts the patient to hospitalist service for [facility]. *DC/Admit/Observation/Transfer Diagnosis at time of Disposition: UTI (urinary tract infection) Qualifiers: Urinary tract infection type: site unspecified Hematuria presence: without hematuria Qualified Code(s): N39.0 - Urinary tract infection, site not specified Sepsis Qualifiers: Sepsis type: sepsis due to unspecified organism Qualified Code(s): A41.9 - Sepsis, unspecified organism - Discharge Dispostion Condition at time of disposition: Guarded Admit: Yes - Referrals Referrals: Trey Weir MD [Primary Care Provider] - - Patient Instructions - Post Discharge Activity
[2017-08-30] MEDS ORDERED: SODIUM CHLORIDE 1,000 ML IV STA (01:16)
[2017-08-30] MEDS ORDERED: CEFTRIAXONE 1 GM in DEXTROSE 5%-WATER - 100 ML IVPB ONE (01:17)
[2017-08-30] MEDS ORDERED: CEFTRIAXONE 1 GM/50 ML BAG ONE ×2 (01:50→11:29)
[2017-08-30] MEDS ORDERED: morphine CARPU-JECT 10 MG/1 ML DISP.SYRIN IVPUSH PRN (02:41)
--- NOTE | 2017-08-30 03:26 | HP ---
<Karlene Davis - Last Filed: 08/30/17 04:00> CHIEF COMPLAINT: fever and dysuria PCP: Dr. Rome HISTORY OF PRESENT ILLNESS: 61 y/o M with PMH CAD, [place] s/p stent placement (2015), HTN, HLD, BPH, renal calculi (b/l) (with stents x 2; removed in October 2016), who presents to the ED with fever and dysuria x 1 day. As per pt, yesterday afternoon, he developed dysuria with increased frequency and decreased void volumes. A few hours later, he began to feel feverish, so he checked his temperature which was initially 101.5F. It trended up to 102.5F and he tried to take Tylenol, which did not alleviate it. Pt subsequently went to an urgent care, where he was told he had an increased white count and that he should go to the ED. Denied [place], chills, SOB , or changes in bowel fnc. In the ED, pt was febrile to Tmax 101.7F, tachycardic 100. Pt received Tylenol, a 1000ml bolus NS, as well as rocephin 1gm IVPB. ER course was notable for: (1) leukocytosis 18.2 (2) Cr 1.6 (up from baseline 1) (3) UA 1+ protein, 2+ blood, 3+ leuk esterase, WBC 1008 (4) rocephin 1gm IVPB x 1 Recent Travel: none PAST MEDICAL HISTORY: CAD, [place] s/p stent placement (2015), HTN, HLD, BPH, renal calculi (b/l) (with stents x 2; removed in October 2016) PAST SURGICAL HISTORY: L inguinal hernia repair () Social History: Smoking: smoked in for 2 yrs; 1/2 pack per day Alcohol: socially Drugs: denies Family History: mother- esophageal cancer, CAD, CHF. father - DM Allergies No Known Allergies Allergy (Verified 12/11/16 16:57) HOME MEDICATIONS: Home Medications Medication Instructions Recorded Aspirin [ASA -] 1 tab PO DAILY 11/03/16 Atorvastatin Ca [Lipitor] 1 tab PO HS 11/03/16 Lisinopril [Zestril] 1 tab PO DAILY 11/03/16 Tamsulosin HCl [Flomax] 1 tab PO HS 03/25/17 Ticagrelor [Brilinta] 90 mg PO BID 11/03/16 Pt meds: -Tamsulosin 0.4mg qd -Lipitor 40mg qd -Brilinta 60 mg BID -Lisinopril 2.5mg qd -Fenofibrate 45mg qd -Aspirin 81mg qd REVIEW OF SYSTEMS CONSTITUTIONAL: +fever Absent: fever, chills, diaphoresis, generalized weakness, malaise, loss of appetite, weight change HEENT: Absent: rhinorrhea, nasal congestion, throat pain, throat swelling, difficulty swallowing, mouth swelling, ear pain, eye pain, visual changes CARDIOVASCULAR: Absent: chest pain, syncope, palpitations, irregular heart rate, lightheadedness , peripheral edema RESPIRATORY: Absent: cough, shortness of breath, dyspnea with exertion, orthopnea, wheezing, stridor, hemoptysis GASTROINTESTINAL: Absent: abdominal pain, abdominal distension, nausea, vomiting, diarrhea, constipation, melena, hematochezia GENITOURINARY: +dysuria, frequency, urgency Absent: dysuria, frequency, urgency, hesitancy, hematuria, flank pain, genital pain MUSCULOSKELETAL: Absent: myalgia, arthralgia, joint swelling, back pain, neck pain SKIN: Absent: rash, itching, pallor HEMATOLOGIC/IMMUNOLOGIC: Absent: easy bleeding, easy bruising, lymphadenopathy, frequent infections ENDOCRINE: Absent: unexplained weight gain, unexplained weight loss, heat intolerance, cold intolerance NEUROLOGIC: Absent: headache, focal weakness or paresthesias, dizziness, unsteady gait, seizure, mental status changes, bladder or bowel incontinence PSYCHIATRIC: Absent: anxiety, depression, suicidal or homicidal ideation, hallucinations. PHYSICAL EXAMINATION Vital Signs - 24 hr 08/29/17 20:46 Temperature 101.7 F H Pulse Rate 100 H Respiratory 18 Rate Blood Pressure 112/76 O2 Sat by Pulse 100 Oximetry (%) GENERAL: Lying comfortably in bed. awake, alert, and fully oriented, in no acute distress. HEAD: Normal with no signs of trauma. EYES: Pupils equal, round and reactive to light, extraocular movements intact, sclera anicteric, conjunctiva clear. EARS, NOSE, THROAT: Ears normal, nares patent, oropharynx clear without exudates. Moist mucous membranes. NECK: Normal range of motion, supple LUNGS: Breath sounds equal, clear to auscultation bilaterally. No wheezes, and no crackles. No accessory muscle use. HEART: Regular rate and rhythm, normal S1 and S2 without murmur, rub or gallop. ABDOMEN: Soft, tender to palpation in suprapubic area, not distended, normoactive bowel sounds, no guarding, no rebound, no masses. LOWER EXTREMITIES: 2+ posterior tibial pulses, warm, well-perfused. No calf tenderness. No peripheral edema. NEUROLOGICAL: Cranial nerves II-XII intact. Laboratory Results 08/29/17 08/29/17 08/29/17 21:25 21:25 21:25 WBC 18.2 H D RBC 5.09 Hgb 15.3 Hct 46.0 MCV 90.4 MCH 30.0 MCHC 33.2 RDW 13.9 Plt Count 274 D MPV 7.9 Neutrophils % 86.3 H Lymphocytes % 5.9 L D Monocytes % 7.5 D Eosinophils % 0.1 Basophils % 0.2 Sodium 136 Potassium 4.1 Chloride 100 Carbon Dioxide 28 Anion Gap 8 BUN 24 H D Creatinine 1.6 H D Creat Clearance w eGFR 44.31 Random Glucose 98 Lactic Acid Calcium 9.3 Total Bilirubin 0.9 D AST 28 D ALT 44 Alkaline Phosphatase 60 D Total Protein 7.8 Albumin 4.4 Urine Color Yellow Urine Appearance Cloudy Urine pH 5.0 Ur Specific [place] 1.019 Urine Protein 1+ H Urine Glucose (UA) Negative Urine Ketones Negative Urine Blood 2+ H Urine Nitrite Negative Urine Bilirubin Negative Urine Urobilinogen 2.0 Ur Leukocyte Esterase 3+ H D Urine WBC (Auto) 1008 Urine RBC (Auto) 38 Urine Mucus Rare Microbiology -Ucx: pending -Blood cx: pending Radio -Abdominal/pelvis CT: official read pending -CXR: WNL, no infiltrates noted ASSESSMENT/PLAN: 61 y/o M with PMH CAD, [place] s/p stent placement (2015), HTN, HLD, BPH, hx renal calculi (b/l) (with stents x 2; removed in October 2016), who presents to the ED with fever and dysuria x 1 day. Pt admitted to med-surg for sepsis 2/2 UTI. #Sepsis 2/2 UTI -Febrile tmax 101.7F, leukocytosis 18.2, Tachycardic 100HR -Continue ceftriaxone empirically 1g IVPB qd -F/u urine cx, blood cx and sensitivities, can adjust abx as needed -urology consult - Dr. Bright -IVF -Pain control morphine 1mg q4h PRN #GYPSY 2/2 pre-renal -Cr 1.6 currently; baseline 1 -IVF #CAD, [place] s/p stent placement -Continue aspirin 81mg qd -Continue brillinta 60mg BID #HTN- currently controlled -Continue Lisinopril 2.5mg qd #HLD -Continue lipitor 40mg qd #BPH -Continue tamsulosin 0.4mg qd #PPX DVT: early amb, SCD's #F/E/N -IV NS 100 cc/hr -Monitor electrolytes -NPO #Dispo med-surg <Eri Butts - Last Filed: 08/30/17 04:24> ATTENDING PHYSICIAN STATEMENT I saw and evaluated the patient. I reviewed the resident's note and discussed the case with the resident. I agree with the resident's findings and plan as documented. 61 year old with fever and dysuria , prior history of kidney stones and stent placement in 10/2016 . Vital Signs Temperature 101.7 F H 08/29/17 20:46 Pulse Rate 100 H 08/29/17 20:46 Respiratory Rate 18 08/29/17 20:46 Blood Pressure 112/76 08/29/17 20:46 O2 Sat by Pulse Oximetry (%) 100 08/29/17 20:46 + suprapubic tenderness CTA b/l Abd soft non distended EXT no edema CBC, BMP 08/29/17 21:25 08/29/17 21:25 1. UTI 2. Sepsis 2/2 UTI 3. Possible nephrolithiasis / obstructive 4. GYSPY - IVAB - IVF - Pain control - f/u results of CT - monitor CR - urology evaluation
[2017-08-30] MEDS ORDERED: ACETAMINOPHEN 325 MG TABLET (FP) ONE ×2 (04:56→13:12)
[2017-08-30] MEDS: SODIUM CHLORIDE 1,000 ML IV SCH ×2 (05:01→18:48)
[2017-08-30 08:56] LABS: ALBUMIN 3.3 g/dl (3.4-5.0); ALK PHOS 52 U/L (45-117); ANION GAP 5 (8-16); BILIRUBIN,TOTAL 1.2 mg/dL (0.2-1.0); BLOOD UREA NITROGEN 18 mg/dL (7-18); CHLORIDE 106 mmol/L (98-107); CO2 27 mmol/L (21-32); CREATININE 1.3 mg/dL (0.7-1.3); GLUCOSE,RANDOM 110 mg/dL (74-106); SGOT/AST 23 U/L (15-37); SGPT/ALT 32 U/L (12-78); SODIUM 138 mmol/L (136-145); TOT PROT 6.2 g/dl (6.4-8.2)
[2017-08-30 09:37] LABS: BASO % 0.1 % (0-2.0); EOS % 0.1 % (0-4.5); HEMATOCRIT 43.6 % (35.4-49); HEMOGLOBIN 14.1 GM/dL (11.7-16.9); LYMPH % 4.7 % (8-40); MCH 29.6 pg (25.7-33.7); MCHC 32.4 g/dl (32.0-35.9); MEAN CELL VOLUME 91.3 fl (80-96); MONO % 2.8 % (3.8-10.2); NEUT % 92.3 % (42.8-82.8); PLATELET COUNT 219 K/MM3 (134-434); RBC 4.78 M/mm3 (4.00-5.60); WHITE BLOOD COUNT 15.4 K/mm3 (4.0-10.0)
[2017-08-30] MEDS ORDERED: TICAGRELOR 90 MG TABLET PO SCH (10:00)
[2017-08-30] MEDS ORDERED: CEFTRIAXONE 1 GM/50 ML PREMIX IVPB SCH (10:00)
[2017-08-30] MEDS ORDERED: LISINOPRIL 20 MG TABLET (FP) PO SCH (10:00)
[2017-08-30] MEDS ORDERED: CEFTRIAXONE 1 GM in DEXTROSE 5%-WATER - 100 ML IVPB SCH (10:00)
[2017-08-30] MEDS: ASPIRIN 81 MG CHEWABLE TABLETS PO SCH (10:41)
[2017-08-30] MEDS: TICAGRELOR 60 MG TABLET PO SCH ×2 (10:41→21:44)
[2017-08-30] MEDS: FENOFIBRIC ACID 45 MG CAP PO SCH (10:41)
[2017-08-30] MEDS: ACETAMINOPHEN 325 MG TABLET (FP) PO PRN ×2 (13:20→18:49)
--- NOTE | 2017-08-30 13:26 | EKG ---
Test Reason : Blood Pressure : / mmHG Vent. Rate : 084 BPM Atrial Rate : 084 BPM P-R Int : 150 ms QRS Dur : 086 ms QT Int : 402 ms P-R-T Axes : 051 -08 055 degrees QTc Int : 475 ms NORMAL SINUS RHYTHM INFERIOR INFARCT (CITED ON OR BEFORE 11-DEC-2016) ABNORMAL ECG Confirmed by MD FISH, JESUS (2012) on 08/30/2017 1:26:32 PM Referred By: Confirmed By:JESUS WHITTEN MD
[2017-08-30] MEDS ORDERED: CEFTRIAXONE 1 G/50 ML PREMIX 50 ML IVPB ONE (17:45)
--- NOTE | 2017-08-30 20:56 | PN ---
Physical Exam: SUBJECTIVE: Patient seen and examined today in the ER pending bed placement. OBJECTIVE: Patient is having some chills and fever on exam which may be due to his underling infection, will swab for influenza Vital Signs Period Temp Pulse Resp BP Sys/Peters Pulse Ox Last 24 Hr 98.1 F-102.8 F 82-110 14-20 91-125/60-84 96-99 GENERAL: The patient is awake, alert, and fully oriented, in no acute distress. HEAD: Normal with no signs of trauma. EYES: PERRL, extraocular movements intact, sclera anicteric, conjunctiva clear. No ptosis. ENT: Ears normal, nares patent, oropharynx clear without exudates, moist mucous membranes. NECK: Trachea midline, full range of motion, supple. LUNGS: Breath sounds equal, clear to auscultation bilaterally HEART: Regular rate and rhythm, S1, S2 without murmur, rub or gallop. ABDOMEN: Soft, nontender, nondistended, normoactive bowel sounds, no guarding, no rebound, no hepatosplenomegaly, no masses. EXTREMITIES: no edema. NEUROLOGICAL: Normal speech, gait not observed. PSYCH: Normal mood, normal affect. SKIN: Warm, dry, normal turgor, no rashes or lesions noted 08/29/17 08/29/17 08/29/17 21:25 21:25 21:25 WBC 18.2 H D RBC 5.09 Hgb 15.3 Hct 46.0 MCV 90.4 MCH 30.0 MCHC 33.2 RDW 13.9 Plt Count 274 D MPV 7.9 Neutrophils % 86.3 H Lymphocytes % 5.9 L D Monocytes % 7.5 D Eosinophils % 0.1 Basophils % 0.2 Sodium 136 Potassium 4.1 Chloride 100 Carbon Dioxide 28 Anion Gap 8 BUN 24 H D Creatinine 1.6 H D Creat Clearance w eGFR 44.31 Random Glucose 98 Lactic Acid Calcium 9.3 Total Bilirubin 0.9 D AST 28 D ALT 44 Alkaline Phosphatase 60 D Total Protein 7.8 Albumin 4.4 Urine Color Yellow Urine Appearance Cloudy Urine pH 5.0 Ur Specific [place] 1.019 Urine Protein 1+ H Urine Glucose (UA) Negative Urine Ketones Negative Urine Blood 2+ H Urine Nitrite Negative Urine Bilirubin Negative Urine Urobilinogen 2.0 Ur Leukocyte Esterase 3+ H D Urine WBC (Auto) 1008 Urine RBC (Auto) 38 Urine Mucus Rare 08/30/17 08/30/17 08/30/17 01:12 08:19 08:19 WBC 15.4 H RBC 4.78 Hgb 14.1 Hct 43.6 MCV 91.3 MCH 29.6 MCHC 32.4 RDW 14.0 Plt Count 219 D MPV 8.0 Neutrophils % 92.3 H Lymphocytes % 4.7 L D Monocytes % 2.8 L Eosinophils % 0.1 Basophils % 0.1 Sodium 138 Potassium 4.0 Chloride 106 Carbon Dioxide 27 Anion Gap 5 L BUN 18 D Creatinine 1.3 Creat Clearance w eGFR 56.31 Random Glucose 110 H Lactic Acid 1.5 Calcium 8.0 L Total Bilirubin 1.2 H D AST 23 ALT 32 D Alkaline Phosphatase 52 Total Protein 6.2 L D Albumin 3.3 L D Urine Color Urine Appearance Urine pH Ur Specific [place] Urine Protein Urine Glucose (UA) Urine Ketones Urine Blood Urine Nitrite Urine Bilirubin Urine Urobilinogen Ur Leukocyte Esterase Urine WBC (Auto) Urine RBC (Auto) Urine Mucus Active Medications Generic Name Dose Route Start Last Admin Trade Name Freq PRN Reason Stop Dose Admin Acetaminophen 650 mg 08/30/17 11:57 08/30/17 18:49 Tylenol - PO 650 mg Q6H PRN Administration fever Aspirin 81 mg 08/30/17 10:00 08/30/17 10:41 Asa - PO 81 mg DAILY BRENDA Administration Atorvastatin Calcium 80 mg 08/30/17 22:00 Lipitor - PO HS BRENDA Fenofibric Acid 45 mg 08/30/17 10:00 08/30/17 10:41 Trilipix - PO 45 mg DAILY BRENDA Administration Sodium Chloride 1,000 mls @ 75 mls/hr 08/30/17 02:45 08/30/17 18:48 Normal Saline - IV 75 mls/hr ASDIR BRENDA Administration CEFTRIAXONE IN IS-OSM DEXTROSE 2 gm in 50 mls @ 100 mls/hr 08/31/17 10:00 Ceftriaxone 2 Gm-D5w Bag IVPB DAILY BRENDA Morphine Sulfate 1 mg 08/30/17 02:41 Morphine Injection - IVPUSH Q4H PRN PAIN LEVEL 1-5 Tamsulosin HCl 0.4 mg 08/30/17 22:00 Flomax - PO HS BRENDA Ticagrelor 60 mg 08/30/17 10:00 08/30/17 10:41 Brilinta PO 60 mg BID BRENDA Administration ASSESSMENT/PLAN: Patient is a 61 year old male with a significant past medical history of CAD, [place] s/p stent placement (2015), hypertension, HLD, BPH, hx renal calculi (b/l) ( with stents x 2; removed in October 2016), who presents to the ED with fever and dysuria x 1 day. ID: Sepsis, UTI Febrile at 102F, on IVF hydration Increased Ceftriaxone to 2gms daily Monitor vitals, fever curve labs Flomax @ hs Monitor intake and output Monitor cultures Urology consult with Dr. Deangelo BETANCUR, improving Monitor creatinine IVF Cardiology: CAD, [place] s/p stent placement On ASA, on Ticagrelor 60mg BID Hypertension Continue Lisinopril 2.5mg qd Monitor BP HLD On home Lipitor 40mg qd F.E.N. Fluids: NS @ 100cc/hr Electrolytes: monitor electrolytes Nutrition: low sodium Prophy: DVT: SCDs GI: Protonix Disposition: full code. Visit type - Emergency Visit Emergency Visit: Yes ED Registration Date: 08/30/17 Care time: The patient presented to the Emergency Department on the above date and was hospitalized for further evaluation of their emergent condition. - New Patient This patient is new to me today: Yes Date on this admission: 08/30/17 - Critical Care Critical Care patient: No - Discharge Referral Referred to [facility] No
[2017-08-30] MEDS: TAMSULOSIN HCL 0.4 MG CAP.ER.24H (FP) PO SCH (21:42)
[2017-08-30] MEDS: ATORVASTATIN CA 80 MG TABLET (FP) PO SCH (21:42)
[2017-08-31] MEDS: SODIUM CHLORIDE 1,000 ML IV SCH ×2 (04:31→06:04)
[2017-08-31 08:41] LABS: BASO % 0.3 % (0-2.0); EOS % 0.4 % (0-4.5); HEMATOCRIT 39.8 % (35.4-49); HEMOGLOBIN 12.9 GM/dL (11.7-16.9); LYMPH % 7.1 % (8-40); MCH 29.4 pg (25.7-33.7); MCHC 32.4 g/dl (32.0-35.9); MEAN CELL VOLUME 90.9 fl (80-96); MEAN PLT VOLUME 8.1 fl (7.5-11.1); MONO % 6.9 % (3.8-10.2); NEUT % 85.3 % (42.8-82.8); PLATELET COUNT 177 K/MM3 (134-434); RBC 4.38 M/mm3 (4.00-5.60); RDW 14.3 % (11.9-15.9); WHITE BLOOD COUNT 16.4 K/mm3 (4.0-10.0)
[2017-08-31 08:52] LABS: ALBUMIN 2.6 g/dl (3.4-5.0); ALK PHOS 53 U/L (45-117); ANION GAP 7 (8-16); BILIRUBIN,TOTAL 0.6 mg/dL (0.2-1.0); BLOOD UREA NITROGEN 14 mg/dL (7-18); CALCIUM 8.1 mg/dL (8.5-10.1); CHLORIDE 108 mmol/L (98-107); CO2 25 mmol/L (21-32); CREATININE 1.2 mg/dL (0.7-1.3); GLUCOSE,RANDOM 140 mg/dL (74-106); POTASSIUM 3.9 mmol/L (3.5-5.1); SGOT/AST 19 U/L (15-37); SGPT/ALT 27 U/L (12-78); SODIUM 140 mmol/L (136-145); TOT PROT 5.4 g/dl (6.4-8.2)
[2017-08-31] MEDS ORDERED: PT OWN MED DRAWER 7, Y5N ONE (09:26)
[2017-08-31] MEDS: ASPIRIN 81 MG CHEWABLE TABLETS PO SCH (09:34)
[2017-08-31] MEDS: FENOFIBRIC ACID 45 MG CAP PO SCH (09:34)
[2017-08-31] MEDS: TICAGRELOR 60 MG TABLET PO SCH ×2 (09:35→22:04)
[2017-08-31] MEDS ORDERED: CEFTRIAXONE 1 GM/50 ML PREMIX IVPB SCH (10:00)
[2017-08-31] MEDS ORDERED: CEFTRIAXONE IN IS-OSM DEXTROSE 2 GM/50 ML BAG IVPB SCH (10:00)
[2017-08-31] MEDS ORDERED: CEFTRIAXONE 1 GM in DEXTROSE 5%-WATER - 100 ML IVPB SCH (10:00)
[2017-08-31] MEDS ORDERED: SODIUM CHLORIDE 1,000 ML IV SCH (17:15)
--- NOTE | 2017-08-31 19:51 | PN ---
Physical Exam: SUBJECTIVE: Patient seen and examined. He is still having dysuria however improve. Denies fever, chills OBJECTIVE: Vital Signs Period Temp Pulse Resp BP Sys/Peters Pulse Ox Last 24 Hr 97.9 F-100.1 F 60-88 18-20 92-130/56-71 95-99 PE Neuro: alert, awake, cn 2-12intact Pulm: CTAB CV: s1 s2 rrr no mrg Abd: s nt nd +bs Ext: warm, no le edema Laboratory Results - last 24 hr 08/31/17 08/31/17 07:00 07:00 WBC 16.4 H RBC 4.38 Hgb 12.9 Hct 39.8 MCV 90.9 MCH 29.4 MCHC 32.4 RDW 14.3 Plt Count 177 MPV 8.1 Neutrophils % 85.3 H Lymphocytes % 7.1 L D Monocytes % 6.9 D Eosinophils % 0.4 D Basophils % 0.3 Sodium 140 Potassium 3.9 Chloride 108 H Carbon Dioxide 25 Anion Gap 7 L BUN 14 D Creatinine 1.2 Creat Clearance w eGFR > 60 Random Glucose 140 H D Calcium 8.1 L Magnesium 2.0 Total Bilirubin 0.6 D AST 19 ALT 27 Alkaline Phosphatase 53 Total Protein 5.4 L Albumin 2.6 L D Active Medications Generic Name Dose Route Start Last Admin Trade Name Jacobyq PRN Reason Stop Dose Admin Acetaminophen 650 mg 08/30/17 11:57 08/30/17 18:49 Tylenol - PO 650 mg Q6H PRN Administration fever Aspirin 81 mg 08/30/17 10:00 08/31/17 09:34 Asa - PO 81 mg DAILY BRENDA Administration Atorvastatin Calcium 80 mg 08/30/17 22:00 08/30/17 21:42 Lipitor - PO 80 mg HS BRENDA Administration Fenofibric Acid 45 mg 08/30/17 10:00 08/31/17 09:34 Trilipix - PO 45 mg DAILY BRENDA Administration CEFTRIAXONE IN IS-OSM DEXTROSE 2 gm in 50 mls @ 100 mls/hr 08/31/17 10:00 11:31 Ceftriaxone 2 Gm-D5w Bag IVPB 100 mls/hr DAILY BRENDA Administration Sodium Chloride 1,000 mls @ 60 mls/hr 08/31/17 17:15 08/31/17 18:41 Normal Saline - IV 60 mls/hr ASDIR BRENDA Administration Morphine Sulfate 1 mg 08/30/17 02:41 Morphine Injection - IVPUSH Q4H PRN PAIN LEVEL 1-5 Tamsulosin HCl 0.4 mg 08/30/17 22:00 08/30/17 21:42 Flomax - PO 0.4 mg HS BRENDA Administration Ticagrelor 60 mg 08/30/17 10:00 08/31/17 09:35 Brilinta PO 60 mg BID BRENDA Administration Microbiology 08/30/17 01:12 Blood Culture - Preliminary Blood - Peripheral Venous NO GROWTH OBTAINED AFTER 24 HOURS, INCUBATION TO CONTINUE FOR 4 DAYS. 08/30/17 01:12 Blood Culture - Preliminary Blood - Peripheral Venous NO GROWTH OBTAINED AFTER 24 HOURS, INCUBATION TO CONTINUE FOR 4 DAYS. 08/30/17 10:00 Influenza Types A,B Antigen (SARA) - Final Nasopharyngeal Swab - Final Assessment: 61 year old male with a significant past medical history of CAD, [place] s/p stent placement (2015), HTN, HLD, BPH, hx renal calculi (b/l) (with stents x 2; removed in October 2016), admitted with fever and dysuria x 1 day. Plan: 1. Sepsis d/t UTI - Urine cx pending - Ceftriaxone 2gm daily - Awaiting urine cx - If leukocytosis persists, will change abx 2. UTI - See above 3. BPH - Flomax HS 4. GYPSY - Improved - Decrease fluids NS 60cc/hr - Will get kidney us 5. CAD, [place] s/p stent placement - ASA - Ticagrelor 60mg BID 6. HTN - Stable - Holding lisinopril pending renal recovery 7. HLD - Lipitor 40mg qd 8. DVT - Heparin sq Visit type - Emergency Visit Emergency Visit: Yes ED Registration Date: 08/30/17 Care time: The patient presented to the Emergency Department on the above date and was hospitalized for further evaluation of their emergent condition. - New Patient This patient is new to me today: Yes Date on this admission: 08/31/17 - Critical Care Critical Care patient: No
[2017-08-31] MEDS: ATORVASTATIN CA 80 MG TABLET (FP) PO SCH (22:04)
[2017-08-31] MEDS: HEPARIN NA (PORCINE) 5,000 UNITS/ML 1ML VIAL SQ SCH (22:04)
[2017-08-31] MEDS: TAMSULOSIN HCL 0.4 MG CAP.ER.24H (FP) PO SCH (22:04)
[2017-09-01] MEDS: HEPARIN NA (PORCINE) 5,000 UNITS/ML 1ML VIAL SQ SCH (06:34)
[2017-09-01 08:14] LABS: BASO % 0.2 % (0-2.0); EOS % 2.1 % (0-4.5); HEMOGLOBIN 12.7 GM/dL (11.7-16.9); LYMPH % 12.4 % (8-40); MCH 29.7 pg (25.7-33.7); MCHC 32.7 g/dl (32.0-35.9); MEAN CELL VOLUME 90.9 fl (80-96); MEAN PLT VOLUME 8.2 fl (7.5-11.1); MONO % 9.7 % (3.8-10.2); NEUT % 75.6 % (42.8-82.8); PLATELET COUNT 178 K/MM3 (134-434); RBC 4.29 M/mm3 (4.00-5.60); RDW 14.1 % (11.9-15.9); WHITE BLOOD COUNT 9.6 K/mm3 (4.0-10.0)
[2017-09-01 08:15] LABS: ANION GAP 6 (8-16); BLOOD UREA NITROGEN 16 mg/dL (7-18); CALCIUM 7.9 mg/dL (8.5-10.1); CHLORIDE 111 mmol/L (98-107); CO2 26 mmol/L (21-32); CREATININE 1.1 mg/dL (0.7-1.3); GLUCOSE,RANDOM 98 mg/dL (74-106); POTASSIUM 3.9 mmol/L (3.5-5.1); SODIUM 143 mmol/L (136-145)
--- NOTE | 2017-09-01 08:56 | DS ---
Physical Exam: SUBJECTIVE: Patient seen and examined. He feels well, denies fever, chills, pain. OBJECTIVE: Vital Signs Period Temp Pulse Resp BP Sys/Peters Pulse Ox Last 24 Hr 97.9 F-98.4 F 58-77 18-20 111-130/62-73 95-98 PE Neuro: alert, awake, cn 2-12intact Pulm: CTAB CV: s1 s2 rrr no mrg Abd: s nt nd +bs Ext: Warm, no le edema Laboratory Results - last 24 hr 09/01/17 09/01/17 07:05 07:05 WBC 9.6 D RBC 4.29 Hgb 12.7 Hct 39.0 MCV 90.9 MCH 29.7 MCHC 32.7 RDW 14.1 Plt Count 178 MPV 8.2 Neutrophils % 75.6 Lymphocytes % 12.4 D Monocytes % 9.7 Eosinophils % 2.1 D Basophils % 0.2 Sodium 143 Potassium 3.9 Chloride 111 H Carbon Dioxide 26 Anion Gap 6 L BUN 16 Creatinine 1.1 Random Glucose 98 D Calcium 7.9 L HOSPITAL COURSE: Date of Admission:08/30/17 Date of Discharge: 09/01/17 Minutes to complete discharge: 37 Discharge Summary Reason For Visit: URINARY TRACT INFECTION SEPSIS Current Active Problems Sepsis (Acute) UTI (urinary tract infection) (Acute) Hospital Course: Initial Hospital Course: Briefly, this 61-year-old male with past medical history of CAD, RI with stents 2-2015, hypertension, hyperlipidemia, BPH, renal calculi with ureteral stents 2 removed in October 2016 was sent to ED from [facility] with dysuria, leukocytosis and ARF, low back pain and chills Subsequent Hospital Course/Progress Note/DC summary: Plan: 1. Sepsis d/t UTI - Sepsis resolved - Urine cx no growth - s/p 4 days ceftriaxone - Home with ceftin 500mg BID x6 days, total 10 day course - PCP and urology follow up 2. UTI - See above 3. BPH - Flomax HS - Kidney US unremarkable 4. GYPSY - Resolved 5. CAD, RI s/p stent placement - ASA - Ticagrelor 60mg BID 6. HTN - Stable - Resume low dose lisinopril 2.5mg 7. HLD - Lipitor 40mg HS Dispo: - Home with above plan and medications - Pt aware and agrees to above plan Condition: Stable - Instructions Diet, Activity, Other Instructions: Please return to the ED for any new, persistent, or worsening symptoms. Follow up with your PCP in 1 week Resume home medications as directed and complete antibiotics Referrals: Trey Weir MD [Primary Care Provider] - Robert Bright MD [Staff Physician] - Disposition: HOME - Home Medications Comprehensive Discharge Medication List: Ambulatory Orders Aspirin [ASA -] 1 tab PO DAILY 11/03/16 Atorvastatin Ca [Lipitor] 1 tab PO HS 11/03/16 Lisinopril [Zestril] 1 tab PO DAILY 11/03/16 Tamsulosin HCl [Flomax] 1 tab PO HS 11/03/16 Ticagrelor [Brilinta -] 90 mg PO BID 11/03/16 Fenofibrate 40 mg PO DAILY 08/30/17 Cefuroxime Axetil [Ceftin -] 500 mg PO BID #12 tablet 09/01/17 This patient is new to me today: No Emergency Visit: Yes ED Registration Date: 08/30/17 Care time: The patient presented to the Emergency Department on the above date and was hospitalized for further evaluation of their emergent condition. Critical Care patient: No - Discharge Referral Referred to [facility] No
[2017-09-01] MEDS ORDERED: CEFTRIAXONE 1 G/50 ML PREMIX 50 ML IVPB ONE (09:00)
[2017-09-01] MEDS ORDERED: PT OWN MED DRAWER 7, Y5N ONE (09:15)
[2017-09-01] MEDS: FENOFIBRIC ACID 45 MG CAP PO SCH (09:24)
[2017-09-01] MEDS: ASPIRIN 81 MG CHEWABLE TABLETS PO SCH (09:24)
[2017-09-01] MEDS: TICAGRELOR 60 MG TABLET PO SCH (09:25)
[2017-09-01 12:47] VITALS: BP 112/70; PULSE 59; TEMP 98.6
== END 2017-09-01 11:25 | disposition home or self-care (01) | DRG 872 ==
LOC: JER 20:21 → JERBED 08-30 02:38 → UNDOADMIN 08-30 02:48 → JERBED 08-30 16:55 → J5S 08-30 19:42
PROVIDERS: ADMIT Internal Medicine; ATTEND Nurse Practitioner Acute Care
DX: A41.9 Sepsis, unspecified organism (principal); N17.9 Acute kidney failure, unspecified; N39.0 Urinary tract infection, site not specified; N40.0 Benign prostatic hyperplasia without lower urinary tract symptoms; I25.2 Old myocardial infarction; I25.10 Atherosclerotic heart disease of native coronary artery without angina pectoris; E78.5 Hyperlipidemia, unspecified; I10 Essential (primary) hypertension; D72.828 Other elevated white blood cell count; R00.0 Tachycardia, unspecified; M54.5 Low back pain; R50.9 Fever, unspecified; Z95.5 Presence of coronary angioplasty implant and graft; Z87.442 Personal history of urinary calculi
CPT/HCPCS: 36415; 71046-TC; 74176-TC; 76775-TC; 80048; 80053; 81003; 81015; 83605; 83735; 85025; 87040; 87086; 87186; 87804; 93005; 93010; 99284-25

== ENCOUNTER 2017-12-15 00:40 | Emergency (ER) | payer BC, OTHER ==
[2017-12-15 01:07] VITALS: BP 135/82; PULSE 69; TEMP 98.8; BMI 26.3
--- NOTE | 2017-12-15 01:14 | PDOC ---
History of Present Illness <Angela Bay - Last Filed: 12/15/17 01:24> - History of Present Illness Initial Comments: 61 year old male with PMH of CAD (s/p stent 2 years prior) presenting with 4 days of sore throat, fevers, cough, and nasal congestion that has been worsening. He has tried Tylenol, throat lozenges, and Motrin at home with relief of his fevers and sore throat but it has worsened today so he wanted to be evaluated. Measured one fever a few days prior to 101.8 Denies nausea, vomiting, diarrhea, constipation, SOB, or other symptoms. 12/15/17 01:50 <Clarence Leblanc - Last Filed: 12/15/17 05:28> - General Chief Complaint: Respiratory Stated Complaint: SORE THROAT, COUGH Time Seen by Provider: 12/15/17 01:13 Past History <Angela Bay - Last Filed: 12/15/17 01:24> - Past Medical History Anemia: No Asthma: No Cardiac Disorders: Yes (PR 01/25) COPD: No Dementia: No Diabetes: No HTN: Yes Hypercholesterolemia: Yes Kidney Stones: Yes Seizures: No - Surgical History Abdominal Surgery: Yes (LEFT INGUINAL HERNIA REPAIR) Cardiac Surgery: Yes (CARDIAC STENT 02/03/16) - Immunization History Immunization Up to Date: Yes - Suicide/Smoking/Psychosocial Hx Smoking History: Never smoked Have you smoked in the past 12 months: No Information on smoking cessation initiated: No Hx Alcohol Use: No Drug/Substance Use Hx: No Substance Use Type: None Hx Substance Use Treatment: No <Clarence Leblanc - Last Filed: 12/15/17 05:28> - Past Medical History Allergies/Adverse Reactions: Allergies Allergy/AdvReac Type Severity Reaction Status Date / Time No Known Allergies Allergy Verified 12/15/17 01:07 Home Medications: Ambulatory Orders Aspirin [ASA -] 1 tab PO DAILY 11/03/16 Atorvastatin Ca [Lipitor] 1 tab PO HS 11/03/16 Tamsulosin HCl [Flomax] 1 tab PO HS 11/03/16 Ticagrelor [Brilinta -] 90 mg PO BID 11/03/16 Fenofibrate Nanocrystallized [Tricor] 145 mg PO DAILY 12/15/17 Finasteride [Proscar] 5 mg PO DAILY 12/15/17 Review of Systems - Review of Systems Constitutional: Yes: Fever. No: Chills, Diaphoresis HEENTM: No: Eye Pain, Blurred Vision Respiratory: Yes: Cough. No: Shortness of Breath, Wheezing Cardiac (ROS): No: Chest Pain, Edema, Irregular Heart Rate ABD/GI: No: Diarrhea, Nausea, Vomiting : No: Burning, Dysuria, Discharge Musculoskeletal: No: Back Pain Integumentary: No: Bruising, Change in Color, Dryness, Erythema Neurological: No: Headache, Numbness, Paresthesia <Clarence Leblanc - Last Filed: 12/15/17 05:28> *Physical Exam - Vital Signs Last Vital Signs Temp Pulse Resp BP Pulse Ox 98.8 F 69 18 135/82 96 12/15/17 01:04 12/15/17 01:04 12/15/17 01:04 12/15/17 01:04 12/15/17 01:04 <Angela Bay - Last Filed: 12/15/17 01:24> - Vital Signs Last Vital Signs Temp Pulse Resp BP Pulse Ox 98.8 F 69 18 135/82 96 12/15/17 01:04 12/15/17 01:04 12/15/17 01:04 12/15/17 01:04 12/15/17 01:04 - Physical Exam General Appearance: Yes: Nourished, Appropriately Dressed. No: Apparent Distress HEENT: positive: EOMI, LIZZETTE, Pharyngeal Erythema, Nasal Congestion. negative: Normal ENT Inspection (erythematous posterior oropharynx), Normal Voice ( slightlky raspy vocal quality), Pharynx Normal, Tonsillar Exudate Neck: positive: Trachea midline, Normal Thyroid, Supple. negative: Tender, Rigid Respiratory/Chest: positive: Lungs Clear, Normal Breath Sounds. negative: Chest Tender, Respiratory Distress, Accessory Muscle Use Cardiovascular: positive: Regular Rhythm, Regular Rate Gastrointestinal/Abdominal: positive: Normal Bowel Sounds, Flat, Soft. negative : Tender Musculoskeletal: positive: Normal Inspection. negative: CVA Tenderness Extremity: positive: Normal Capillary Refill, Normal Inspection, Normal Range of Motion. negative: Tender Integumentary: positive: Normal Color, Dry, Warm Neurologic: positive: Fully Oriented, Alert, Normal Mood/Affect, Normal Response , Motor Strength 5/5 <Clarence Leblanc - Last Filed: 12/15/17 05:28> Medical Decision Making - Medical Decision Making 12/15/17 01:24 Pt comes with sore throat, runny nose and cough after receiving the pneumovax; states that he thinks this is from the flu shot. He seems to have a viral illness. <ShaniqueAngela - Last Filed: 12/15/17 01:24> - Medical Decision Making Patient has URI type symptoms with pharyngeal erythema and sore throat. Strep and Flu negative. He is afebrile and well appearing here with complete throat pain relief with viscous lidocaine. CXR clear. Will DC with PCP follow up and magic mouthwash as this is likely some other viral pharyngeal/ URI episode. 12/15/17 04:43 <Clarence Leblanc - Last Filed: 12/15/17 05:28> *DC/Admit/Observation/Transfer <Angela Bay - Last Filed: 12/15/17 01:24> - Discharge Dispostion Admit: No <DeanaWillisfrancesca - Last Filed: 12/15/17 05:28> Diagnosis at time of Disposition: Sore throat (viral) - Discharge Dispostion Disposition: HOME Condition at time of disposition: Improved - Referrals Referrals: Trey Weir [Other] - Patient Instructions Printed Discharge Instructions: DI for Pharyngitis/Tonsillopharyngitis -- Adult Additional Instructions: You do not have sore throat or the flu. Please use the magic mouthwash as instructed- rinse it, gargle it, and spit it out. Please see your physician within three days. Please return to the ED if you have new or worsening symptoms. - Post Discharge Activity
[2017-12-15] MEDS ORDERED: LIDOCAINE VISCOUS 2% ORAL/TOP 20 ML UNIT-DOSE CUP MM ONE (02:22)
--- NOTE | 2017-12-15 02:45 | PDOC ---
Attending Attestation - Resident Resident Name: Clarence Leblanc - ED Attending Attestation I have performed the following: I have examined & evaluated the patient, The case was reviewed & discussed with the resident, I agree w/resident's findings & plan - HPI HPI: 12/15/17 06:40 Pt comes with cough and cold after receiving pneumovax. States he thinks the two are related. Pt has no fever; just chills and URI. - Physicial Exam PE: 12/15/17 06:41 Agree with resident exam - Medical Decision Making 12/15/17 06:42 Flu and rapid step negative. Pt's CXR is normal. Exam is normal. Pt feeling better. He will go home with diagnosis of Viral URI; rest.
== END 2017-12-15 05:50 | disposition home or self-care (01) ==
LOC: JER 00:40 → SUPCPDRO 00:40 → JER 05:50
DX: J02.9 Acute pharyngitis, unspecified (principal); B97.89 Other viral agents as the cause of diseases classified elsewhere; I25.10 Atherosclerotic heart disease of native coronary artery without angina pectoris; I10 Essential (primary) hypertension; Z95.5 Presence of coronary angioplasty implant and graft; I25.2 Old myocardial infarction; E78.00 Pure hypercholesterolemia, unspecified; Z87.442 Personal history of urinary calculi
CPT/HCPCS: 71046-TC-FY; 87070; 87430; 87804; 99282-25

== ENCOUNTER 2018-04-14 14:09 | Emergency (ER) | payer BC ==
[2018-04-14 14:14] VITALS: BP 123/76; PULSE 58; TEMP 98.1; BMI 25.7
--- NOTE | 2018-04-14 14:29 | PDOC ---
History of Present Illness <Tasneem Sparrow - Last Filed: 04/14/18 16:44> - General History Source: Patient Exam Limitations: No Limitations - History of Present Illness Initial Comments: 04/14/18 14:41 62 year old male with PMH TURP (03/28/18), UTI presenting to ED for urinary retention x30 minutes. He states he was peeing earlier, and mid-stream stopped peeing and "felt the urine go backwards". Upon arrival to the ED he had an episode of urinary incontinence with discharge from his urethra. He denies fever , chills, nausea, vomiting, diarrhea, abdominal pain, chest pain, shortness of breath, headache, weakness. He also states that for the last few days he has had intermittent right flank pain. Urologist - Dr. Bright Allergies - NKDA <Martha Moses - Last Filed: 04/14/18 17:15> - General Chief Complaint: Urinary Problem Stated Complaint: UNABLE TO URINATE Time Seen by Provider: 04/14/18 14:29 Past History <Tasneem Sparrow - Last Filed: 04/14/18 16:44> - Past Medical History Anemia: No Asthma: No Cancer: No Cardiac Disorders: Yes (ID 01/25 V[facility]IB WENT TO [facility]) CVA: No COPD: No CHF: No DVT: No Dementia: No Diabetes: No GI Disorders: No Disorders: Yes (KIDNEY STONES) HTN: Yes Hypercholesterolemia: Yes Kidney Stones: Yes Liver Disease: No Seizures: No Thyroid Disease: No - Surgical History Abdominal Surgery: Yes (LEFT INGUINAL HERNIA REPAIR) Cardiac Surgery: Yes (CARDIAC STENT 02/03/16) - Immunization History Immunization Up to Date: Yes - Suicide/Smoking/Psychosocial Hx Smoking History: Never smoked Have you smoked in the past 12 months: No Information on smoking cessation initiated: No Hx Alcohol Use: No Drug/Substance Use Hx: No Substance Use Type: None Hx Substance Use Treatment: No <Martha Moses - Last Filed: 04/14/18 17:15> - Past Medical History Allergies/Adverse Reactions: Allergies Allergy/AdvReac Type Severity Reaction Status Date / Time No Known Allergies Allergy Verified 04/14/18 14:11 Home Medications: Ambulatory Orders Fenofibrate Nanocrystallized [Tricor] 145 mg PO DAILY 12/15/17 Finasteride [Proscar] 5 mg PO DAILY 12/15/17 Oxycodone HCl/Acetaminophen [Percocet 5-325 mg Tablet] 1 tab PO Q4H #20 tablet MDD 6 03/21/18 Aspirin 81 mg PO DAILY 03/24/18 Atorvastatin Calcium 40 mg PO DAILY 03/24/18 Sulfamethoxazole/Trimethoprim [Bactrim Ds -] 1 tab PO BID #14 tablet 04/14/18 Review of Systems - Review of Systems Able to Perform ROS?: Yes Comments:: 04/14/18 14:43 General: denies fever, chills, night sweats, generalized weakness. HEENT: denies sore throat, rhinorrhea, ear pain. Heart: denies chest pain, palpitations, syncope, lower extremity swelling, diaphoresis. Respiratory: denies shortness of breath, cough, sputum production, hematemesis. Abdomen: denies abdominal pain, nausea, vomiting, diarrhea, constipation, blood in stool. : admits to urinary retention, right sided flank pain and urinary incontinence. denies dysuria, increased urinary frequency, hematuria. Back: denies back pain. Musculoskeletal: denies joint pain, muscle pain, joint swelling. Neurological: denies headache, dizziness, numbness, tingling, weakness. Skin: denies rash, laceration, abrasion. <Martha Moses - Last Filed: 04/14/18 17:15> *Physical Exam - Vital Signs Last Vital Signs Temp Pulse Resp BP Pulse Ox 98.1 F 58 L 18 123/76 100 04/14/18 14:12 04/14/18 14:12 04/14/18 14:12 04/14/18 14:12 04/14/18 14:12 <Tasneem Sparrow - Last Filed: 04/14/18 16:44> - Vital Signs Last Vital Signs Temp Pulse Resp BP Pulse Ox 98.1 F 58 L 18 123/76 100 04/14/18 14:12 04/14/18 14:12 04/14/18 14:12 04/14/18 14:12 04/14/18 14:12 - Physical Exam Comments: 04/14/18 14:44 Appearance: comfortable. HEENT: head is normocephalic, atraumatic. EOMI. PERRLA. Neck: supple. Full ROM. Heart: regular rhythm. no murmurs, rubs or gallops. No pericardial friction rub. Lungs: clear to auscultation bilaterally. no crackles, rhonchi or wheezing. no stridor. Abdomen: soft, nontender. normal bowel sounds. no rebound, guarding, masses. CVA tenderness negative bilaterally. Extremities: Peripheral pulses intact and equal. No lower extremity edema. Neurological: Alert. Oriented x3. CN 2-12 grossly intact. Moves all four extremities. <Martha Moses - Last Filed: 04/14/18 17:15> ED Treatment Course - LABORATORY CBC & Chemistry Diagram: 04/14/18 16:04 04/14/18 16:04 - ADDITIONAL ORDERS Additional order review: Laboratory Results 04/14/18 04/14/18 16:04 15:10 Sodium 143 Potassium 3.9 Chloride 106 Carbon Dioxide 26 Anion Gap 11 BUN 17 Creatinine 1.1 Creat Clearance w eGFR > 60 Random Glucose 86 Calcium 9.1 Total Bilirubin 0.4 AST 26 D ALT 32 Alkaline Phosphatase 52 Total Protein 6.9 Albumin 3.8 Urine Color Yellow Urine Appearance Slcloudy Urine pH 6.0 Ur Specific [place] 1.017 Urine Protein 1+ H D Urine Glucose (UA) Negative Urine Ketones Negative Urine Blood 3+ H Urine Nitrite Negative Urine Bilirubin Negative Urine Urobilinogen Negative Ur Leukocyte Esterase 3+ H Urine WBC (Auto) 217 Urine RBC (Auto) 749 Ur Epithelial Cells Rare Urine Bacteria Rare Urine Yeast Rare 04/14/18 16:04 RBC 4.93 MCV 89.7 MCHC 33.8 RDW 15.1 MPV 8.0 Neutrophils % 64.4 Lymphocytes % 23.5 D Monocytes % 9.0 Eosinophils % 2.4 D Basophils % 0.7 - Additional Consults Time Called: 16:44 Consult/PCP: Paged Dr. Leblanc (covering for Dr. Robert Bright) - Urology <Tasneem Sparrow - Last Filed: 04/14/18 16:44> - LABORATORY CBC & Chemistry Diagram: 04/14/18 16:04 04/14/18 16:04 <Martha Moses - Last Filed: 04/14/18 17:15> Medical Decision Making - Medical Decision Making 04/14/18 14:44 62 year old male with PMH TURP (03/28/18), UTI presenting to ED for urinary retention/urinary incontinence associated with intermittent right flank pain. D/C 03/25/18 for UTI s/p TURP - Zosyn inpatient, Levaquin outpatient. Urine culture grew Brittnee Sun, sensitive to Levaquin. Initial Vital Signs Temp Pulse Resp BP Pulse Ox 98.1 F 58 L 18 123/76 100 04/14/18 14:12 04/14/18 14:12 04/14/18 14:12 04/14/18 14:12 04/14/18 14:12 Afebrile. No tachycardia. No hypotension. No hypoxia. Pending UA/UC. Pt was able to urinate on his own without difficulty. No prado catheter ordered at this time. 04/14/18 15:39 UA - 3+ blood. 3+ LE. WBC 217. RBC 749. 04/14/18 16:37 CBC normal. CMP normal. Dr. Deangelo edge. 04/14/18 17:[address] Leblanc, covering for Dr. Bright, who advises the pt be discharged on Bactrim, and the patient will be seen in the office tomorrow at 10:00 AM. I discussed the plan of care with the patient and his , who agree to follow up tomorrow outpatient urology. Pt will be discharged with prescription for Bactrim, follow up instructions and strict return precautions. <Martha Moses - Last Filed: 04/14/18 17:15> *DC/Admit/Observation/Transfer <Tasneem Sparrow - Last Filed: 04/14/18 16:44> - Discharge Dispostion Decision to Admit order: No <Martha Moses - Last Filed: 04/14/18 17:15> Diagnosis at time of Disposition: UTI (urinary tract infection), S/P TURP - Discharge Dispostion Disposition: HOME Condition at time of disposition: Stable - Prescriptions Prescriptions: Sulfamethoxazole/Trimethoprim [Bactrim Ds -] 1 tab PO BID #14 tablet - Referrals Referrals: Trey Weir MD [Primary Care Provider] - - Patient Instructions Printed Discharge Instructions: DI for Urinary Tract Infection (UTI), DI for Transurethral Resection of the Prostate Additional Instructions: You were seen today for urinary retention. You were able to void urine on your own so a catheter was not placed. Your urine analysis revealed a urinary tract infection. I spoke with Dr. Leblanc, covering for Dr. Bright, who states that you will be seen in the office tomorrow at 10:00 AM. Do not miss this appointment. Based on your urologist's advice, I have sent a prescription for an antibiotic to your pharmacy. Pick it up as soon as possible. Take all pills as instructed. Follow up with your primary care doctor within 5 days. Call their office tomorrow and make an appointment for this week. Bring the paperwork given to you today with you to your appointment. Follow up with your urologist tomorrow at 10:00 AM. Bring the paperwork given to you today with you to your appointment. Return to the Emergency Department for urinary retention, urinary incontinence, blood in urine, fever, chills, flank pain, back pain, chest pain, shortness of breath, abdominal pain, nausea, vomiting, weakness, or any other new, worsening or concerning symptoms. - Post Discharge Activity
--- NOTE | 2018-04-14 15:06 | PDOC ---
Attending Attestation - Resident Resident Name: Martha Moses - ED Attending Attestation I have performed the following: I have examined & evaluated the patient, The case was reviewed & discussed with the resident, I agree w/resident's findings & plan, Exceptions are as noted - HPI HPI: 04/14/18 14:46 62y M s/p turp, kidney stones, CAD s/p NC, with recent hx uti in early mar presents with urinary retention. Pt states he was feeling fine the past few days , when he was urinating like usual and had a sudden stop in his urine stream and felt like it was 'blocked' and was 'backing up'. Pt continued to feel like urinating. denies any feer/chlls, dysuria, heamturia. Pt does note some intermittet R flakn pain over the past few days but feels ok now. Pt notes he has been following up with dr. Anival Bright, noted his Cr was elevated and is pending an outpatient kidney us scheduled for . Pt notes he was able to urinate here in the ED and was able to provide a urine sample. On exam pt in no distress abd soft nontender, no cva tenderness no LE edema will ck UA to r/o UTI no signs of blood clots on his UA 04/14/18 16:[address] Leblanc requests starting pt on abx due to ua will fu in the office as outpatient - Physicial Exam PE: 04/25/18 22:56 see above - Medical Decision Making 04/25/18 22:56 see above
[2018-04-14 15:19] LABS: URINE APPEARANCE SLCLOUDY; URINE BILIRUBIN NEGATIVE (<2.0 mg/dL); URINE COLOR YELLOW; URINE GLUCOSE (UA) NEGATIVE (NEGATIVE); URINE KETONE NEGATIVE (NEGATIVE); URINE NITRITE NEGATIVE (NEGATIVE); URINE UROBILINOGEN NEGATIVE mg/dL (0.2-1.0)
[2018-04-14 15:32] LABS: URINE LEUK ESTERASE 3+ (NEGATIVE); URINE PROTEIN 1+ (NEGATIVE)
[2018-04-14 15:51] LABS: EPI CELLS RARE /HPF (FEW); URINE BACTERIA RARE /hpf (NONE SEEN); YEAST RARE
[2018-04-14 16:12] LABS: BASO % 0.7 % (0-2.0); EOS % 2.4 % (0-4.5); HEMATOCRIT 44.2 % (35.4-49); HEMOGLOBIN 14.9 GM/dL (11.7-16.9); LYMPH % 23.5 % (8-40); MCH 30.3 pg (25.7-33.7); MCHC 33.8 g/dl (32.0-35.9); MEAN CELL VOLUME 89.7 fl (80-96); NEUT % 64.4 % (42.8-82.8); PLATELET COUNT 281 K/MM3 (134-434); RBC 4.93 M/mm3 (4.00-5.60); RDW 15.1 % (11.9-15.9)
[2018-04-14 16:36] LABS: ALBUMIN 3.8 g/dl (3.4-5.0); ALK PHOS 52 U/L (45-117); ANION GAP 11 MMOL/L (8-16); BILIRUBIN,TOTAL 0.4 mg/dL (0.2-1.0); BLOOD UREA NITROGEN 17 mg/dL (7-18); CALCIUM 9.1 mg/dL (8.5-10.1); CHLORIDE 106 mmol/L (98-107); CO2 26 mmol/L (21-32); CREATININE 1.1 mg/dL (0.7-1.3); GLUCOSE,RANDOM 86 mg/dL (74-106); POTASSIUM 3.9 mmol/L (3.5-5.1); SGOT/AST 26 U/L (15-37); SGPT/ALT 32 U/L (12-78); SODIUM 143 mmol/L (136-145); TOT PROT 6.9 g/dl (6.4-8.2)
[2018-04-14] MEDS ORDERED: SULFAMETHOXAZOLE/TRIMETHOPRIM 800MG/160MG D.S. TABLET PO ONE (17:10)
[2018-04-14] MEDS ORDERED: SULFAMETHOXAZOLE/TRIMETHOPRIM 800MG/160MG D.S. TABLET ONE (17:24)
== END 2018-04-14 17:28 | disposition home or self-care (01) ==
LOC: JER 14:09
DX: N39.0 Urinary tract infection, site not specified (principal); Z98.890 Other specified postprocedural states; I25.2 Old myocardial infarction; I25.10 Atherosclerotic heart disease of native coronary artery without angina pectoris; Z95.5 Presence of coronary angioplasty implant and graft; I10 Essential (primary) hypertension
CPT/HCPCS: 36415; 80053; 81003; 81015; 85025; 87086; 99283-25

== ENCOUNTER 2019-05-06 12:42 | Day surgery (SDC) | payer BC, OTHER ==
[2019-05-05 15:51] VITALS: BMI 26.2
[2019-05-06] MEDS ORDERED: oxyCODONE HCL 5 MG TABLET PO PRN (14:23)
[2019-05-06] MEDS ORDERED: PROMETHAZINE HCL 25 MG/1 ML VIAL IVPUSH PRN (14:23)
[2019-05-06] MEDS ORDERED: ONDANSETRON 4 MG/2 ML VIAL IVPUSH PRN (14:23)
[2019-05-06] MEDS ORDERED: PROPOFOL 20 ML ONE (14:27)
[2019-05-06] MEDS ORDERED: LIDOCAINE HCL/PF 2% SDV 5ML VIAL ONE (14:27)
[2019-05-06] MEDS ORDERED: DEXAMETHASONE SOD PHOSPHATE 4 MG/1 ML VIAL ONE (14:27)
[2019-05-06] MEDS ORDERED: MIDAZOLAM HCL 2 MG/2 ML SINGLE DOSE VIAL ONE (14:27)
[2019-05-06] MEDS ORDERED: ceFAZolin SODIUM 1 GM VIAL IVPB ONE (14:49)
[2019-05-06] MEDS ORDERED: GENTAMICIN SO4 80 MG/2 ML VIAL IVPB ONE (14:50)
[2019-05-06] MEDS ORDERED: ceFAZolin SODIUM 1 GM VIAL ONE (14:57)
[2019-05-06] MEDS ORDERED: GENTAMICIN SO4 80 MG/2 ML VIAL ONE (15:00)
[2019-05-06] MEDS ORDERED: ACETAMINOPHEN 325 MG TABLET (FP) PO PRN (15:37)
--- NOTE | 2019-05-06 16:22 | OP ---
DATE OF OPERATION: DATE OF DICTATION: 05/06/2019 PREOPERATIVE DIAGNOSIS: Left renal colic, left renal stone. POSTOPERATIVE DIAGNOSIS: Bladder neck contraction and bleeding prostate. OPERATIVE PROCEDURE: Cystourethroscopy, left retrograde pyelogram, left ureteroscopy, fulguration, and evaporation of bleeding bladder neck scar tissue. ANESTHESIA: General DESCRIPTION OF PROCEDURE: Under above stated anesthesia, the patient is prepped and draped in the usual sterile manner. He is placed in the dorsal lithotomy position. Cystoscopy revealed a normal anterior urethra. Prostatic urethra revealed a contracted bladder neck with multiple areas of bleeding. With difficulty, the scope was passed into the bladder. The bladder revealed a grade 3 trabeculation with multiple saccules. Ureteral orifices were within normal limits with efflux of clear urine. Left ureteral orifice was visualized. A Flexi-Tip catheter was placed, and 5 mL of contrast was injected. The entire left renal unit was visualized. There appeared to be delay of excretion of dye on the left side. Therefore, a Glidewire was passed up the left renal unit. The cystoscope was removed. Ureteroscopy was performed in the usual fashion. The entire ureter was visualized. No stones were found. Therefore, the ureteroscope and the wire were removed. Again, the bladder neck appeared to be contracted and bleeding. Therefore, a Bugbee electrode was introduced, and the bladder neck was cauterized as well as vaporized from the 6 o'clock position to the 12 o'clock position on the right side. Same thing was done on the left side. No active bleeding was noted. The scope was removed. A 20-[place] was inserted. This was connected to a leg bag. The patient tolerated the procedure well. He returned to the recovery room in good condition. Reanna [id number]
--- NOTE | 2019-05-06 16:53 | CONS ---
DATE OF CONSULTATION: DATE OF DICTATION: 05/06/2019 HISTORY OF PRESENT ILLNESS: The patient is a 63-year-old male with history of urinary frequency, urgency, dribbling, and bilateral kidney stones. He underwent an extracorporeal shockwave lithotripsy on the right side. The left stone is 6 mm and is in the left upper ureter. The patient is admitted for cystoscopy, left retrograde pyelogram, left ureteroscopic stone extraction. He does have history of arteriosclerotic heart disease. He does have history of an UT and placement of a coronary stent in the past. He also complains of nocturia x3. PHYSICAL EXAMINATION: General: A well developed adult male in no apparent distress. He is status post removal of right stent earlier this year. He does have history of male hypogonadism as well as dyslipidemia. He complains of chronic low back pain. He also is diagnosed with a herniated lumbar disk. Presently he is on a statin as well as Proscar. He has seasonal allergies. Abdomen: Soft. Left CVA tenderness. Genitalia: Atraumatic. There is vitiligo of the penile foreskin. Meatus is adequate. Testes are normal in size and consistency. His prostate is 2+, smooth benign, and nontender. IMPRESSION: History of left kidney stone. PLAN: Cystoscopy, left retrograde pyelogram, left ureteroscopy and stone extraction. Procedure explained to patient as well as patient's son, who is a graduate medical student. ONESIMO HERNANDEZ M.D. [id number]
[2019-05-06 18:25] VITALS: BP 111/69; PULSE 60; TEMP 97.9
== END 2019-05-06 18:45 | disposition home or self-care (01) ==
LOC: JASU-SURG 12:42
PROVIDERS: ATTEND Urology
PROC: BT1FYZZ Fluoroscopy of Left Kidney, Ureter and Bladder using Other Contrast (ICD-10-PCS; 2019-05-06)
PROC: 0T5C8ZZ Destruction of Bladder Neck, Via Natural or Artificial Opening Endoscopic (ICD-10-PCS; principal; 2019-05-06 14:30)
DX: N32.0 Bladder-neck obstruction (principal); N42.1 Congestion and hemorrhage of prostate; N32.89 Other specified disorders of bladder
CPT/HCPCS: 76000-TC-FY; 87086; 94760

== ENCOUNTER 2019-07-24 13:53 | Emergency (ER) | payer BC, OTHER ==
[2019-07-24 14:05] VITALS: BMI 26.9
--- NOTE | 2019-07-24 14:23 | PDOC ---
History of Present Illness <TaliaElana Francis - Last Filed: 07/24/19 17:42> - General History Source: Patient Exam Limitations: No Limitations - History of Present Illness Initial Comments: 07/24/19 15:56 63 yo M with a hx of CAD (NM 2014; currently on aspirin 81 mg), BPH, and HLD presents to the emergency department s/p fall today. Per the patient, he was plastering on a wall approximately 8 feet tall on a ladder without an additional person to stabilize the base. Per the patient, the ladder slipped and he fell, landing on his left elbow. Denies LOC and head trauma. Per the patient, he denies having a prodromal series of symptoms prior to the fall. Denies the following: fever, chills, N/V/D, chest pain, SOB, visual disturbance , headaches, neck pain, abdominal pain, dysuria, hematuria, diarrhea, and leg pain/swelling. Allergies: NKDA Last known meal/drink: 1 pm 07/24/2019 Meds: aspirin 81 mg (last took today) <Rao Moreno - Last Filed: 07/25/19 10:21> - General Chief Complaint: Injury Stated Complaint: FALL/INJURY Time Seen by Provider: 07/24/19 14:11 Past History <Elana Melgar - Last Filed: 07/24/19 17:42> - Past Medical History Anemia: No Asthma: No Cancer: No Cardiac Disorders: Yes (NM 01/25 [facility]) CVA: No COPD: No CHF: No DVT: No Dementia: No Diabetes: No GI Disorders: No Disorders: Yes (KIDNEY STONES) HTN: Yes (DENIES) Hypercholesterolemia: Yes Kidney Stones: Yes Liver Disease: No Seizures: No Thyroid Disease: No - Surgical History Abdominal Surgery: Yes (LEFT INGUINAL HERNIA REPAIR) Appendectomy: No Cardiac Surgery: Yes (CARDIAC STENT 02/03/16) Cholecystectomy: No Lung Surgery: No Neurologic Surgery: No Orthopedic Surgery: No - Immunization History Immunization Up to Date: Yes - Psycho Social/Smoking Cessation Hx Smoking History: Never smoked Have you smoked in the past 12 months: No Hx Alcohol Use: No Drug/Substance Use Hx: No Substance Use Type: None Hx Substance Use Treatment: No <Rao Moreno - Last Filed: 07/25/19 10:21> - Past Medical History Allergies/Adverse Reactions: Allergies Allergy/AdvReac Type Severity Reaction Status Date / Time No Known Allergies Allergy Verified 05/05/19 16:20 Home Medications: Ambulatory Orders Finasteride [Proscar] 5 mg PO DAILY 12/15/17 Aspirin 81 mg PO DAILY 03/24/18 Atorvastatin Calcium 40 mg PO DAILY 03/24/18 Ibuprofen 800 mg PO PRN PRN 05/05/19 Oxycodone HCl/Acetaminophen [Percocet 5-325 mg Tablet] 1 tab PO Q6H PRN #8 tablet MDD 4 07/24/19 Oxycodone HCl/Acetaminophen [Percocet 5/325 -] 1 tab PO Q6H #14 tablet MDD 4 Review of Systems - Review of Systems Able to Perform ROS?: Yes Is the patient limited Singaporean proficient: No Constitutional: No: Chills, Diaphoresis, Fever, Weakness HEENTM: No: Eye Pain, Ear Pain, Nose Pain, Throat Pain, Mouth Pain Respiratory: No: Cough, Shortness of Breath, Hemoptysis Cardiac (ROS): No: Chest Pain, Lightheadedness, Palpitations, Chest Tightness ABD/GI: No: Constipated, Diarrhea, Nausea, Rectal Bleeding, Vomiting, Abdominal cramping, Tarry Stools : No: Burning, Dysuria, Hematuria Musculoskeletal: Yes: Joint Pain (elbow left side). No: Back Pain, Neck Pain Integumentary: No: Bruising, Erythema, Rash Neurological: No: Headache, Numbness, Tingling, Tremors, Ataxia Psychiatric: No: Change in Appetite Endocrine: No: Unexplained Weight Gain, Unexplained Weight Loss Hematologic/Lymphatic: No: Anemia <Rao Moreno - Last Filed: 07/25/19 10:21> *Physical Exam - Vital Signs Last Vital Signs Temp Pulse Resp BP Pulse Ox 98.5 F 52 L 17 135/82 95 07/24/19 13:56 07/24/19 13:56 07/24/19 13:56 07/24/19 13:56 07/24/19 13:56 <Elana Melgar - Last Filed: 07/24/19 17:42> - Vital Signs Last Vital Signs Temp Pulse Resp BP Pulse Ox 98.5 F 52 L 17 135/82 95 07/24/19 13:56 07/24/19 13:56 07/24/19 13:56 07/24/19 13:56 07/24/19 13:56 - Physical Exam General Appearance: Yes: Nourished, Appropriately Dressed. No: Apparent Distress, Intoxicated HEENT: positive: EOMI, LIZZETTE, Normal Voice, Symmetrical, Pharynx Normal, Hearing Grossly Normal. negative: Pale Conjunctivae, Scleral Icterus (R), Scleral Icterus (L), Muffled/Hoarse voice, Pharyngeal Erythema, Tonsillar Exudate, Tonsillar Erythema, Nasal Congestion, Rhinorrhea, Sinus Tenderness, Excessive drooling Neck: positive: Trachea midline, Supple, Other (no step offs noted). negative: Tender, Lymphadenopathy (R), Lymphadenopathy (L), Tender lateral, Tender midline Respiratory/Chest: positive: Lungs Clear, Normal Breath Sounds. negative: Chest Tender, Respiratory Distress, Accessory Muscle Use, Crackles, Rales, Rhonchi, Stridor, Wheezing Cardiovascular: positive: Regular Rhythm, Regular Rate, S1, S2. negative: Systolic Murmur Gastrointestinal/Abdominal: positive: Normal Bowel Sounds, Flat, Soft. negative : Tender, Distended, Guarding, Rebound Lymphatic: negative: Adenopathy Musculoskeletal: positive: Normal Inspection. negative: CVA Tenderness, Vertebral Tenderness Extremity: positive: Normal Capillary Refill, Tender (left elbow at ulnar and radial head. tenderness to palpation at the olecrenon process), Other (intact ROM of the left shoulder and wrist. No tenderness to palpation in the left wrist and shoulder. Intact neurosensation of the left forearm and hand. Intact radial pulse in the left hand. Able to make a fist with the left hand and extend fingers. ). negative: Normal Inspection (obvious deformity noted. ), Normal Range of Motion (unable to ROM passively and actively of the left elbow) Integumentary: positive: Normal Color, Dry, Warm, Swelling (left elbow). negative: Ecchymosis Neurologic: positive: astrophysics teacher II-XII NML intact, Fully Oriented, Alert, Normal Mood/ Affect <Rao Moreno - Last Filed: 07/25/19 10:21> Procedures - Bedside Ultrasound Bedside Ultrasound: Focused Assessment w/Sonography for Trauma Remarks: 07/24/19 17:42 E-FAST A coronal plane of the right upper quadrant was obtained and was negative for anechoic fluid in the right chest, in Bowden's pouch, or the right paracolic gutter. suprapubic window was negative for free fluid posterior and lateral to the bladder. Next, a coronal plane of the left upper quadrant was obtained and was negative for anechoic fluid in the left chest, the splenorenal space, and the left paracolic gutter. ext, subcostal and parasternal long windows of the heart were negative for the presence of free fluid in the pericardial space. Bilateral lung sliding present, no e/o PTX. These images were captured on the internal hard drive for archival and quality process engineer purposes. <Elana Melgar - Last Filed: 07/24/19 17:42> ED Treatment Course - LABORATORY CBC & Chemistry Diagram: 07/24/19 15:05 07/24/19 15:05 - ADDITIONAL ORDERS Additional order review: Laboratory Results 07/24/19 07/24/19 07/24/19 15:05 15:05 15:05 PT with INR 12.60 INR 1.07 PTT (Actin FS) 33.8 Sodium 139 Potassium 4.4 Chloride 103 Carbon Dioxide 32 Anion Gap 5 L BUN 22.5 H Creatinine 1.2 Est GFR (CKD-EPI)AfAm 74.66 Est GFR (CKD-EPI)NonAf 64.42 Random Glucose 156 H Calcium 9.3 Total Bilirubin 0.5 AST 23 ALT 31 Alkaline Phosphatase 76 Total Protein 7.1 Albumin 3.9 Blood Type O POSITIVE Antibody Screen Negative 07/24/19 15:05 RBC 5.74 H MCV 91.4 MCHC 32.7 RDW 15.3 MPV 8.6 Neutrophils % 65.0 Lymphocytes % 24.2 Monocytes % 8.4 Eosinophils % 1.8 Basophils % 0.6 - Medications Given in the ED: ED Medications Discontinued Medications Generic Name Dose Route Start Last Admin Trade Name Freq PRN Reason Stop Dose Admin Hydromorphone HCl 1 mg 07/24/19 15:17 07/24/19 15:25 Dilaudid Injection - IVPUSH 07/24/19 15:18 1 mg ONCE ONE Administration Morphine Sulfate 4 mg 07/24/19 14:24 07/24/19 14:44 Morphine Injection - IVPUSH 07/24/19 14:25 4 mg ONCE ONE Administration <Elana Melgar - Last Filed: 07/24/19 17:42> - LABORATORY CBC & Chemistry Diagram: 07/24/19 15:05 07/24/19 15:05 <Rao Moreno - Last Filed: 07/25/19 10:21> Medical Decision Making - Medical Decision Making 63 yo M with a hx of CAD (2014; currently on aspirin 81 mg), BPH, and HLD presents to the emergency department s/p fall today. Per the patient, he was plastering on a wall approximately 8 feet tall on a ladder without an additional person to stabilize the base. Initial vitals: Initial Vital Signs Temp Pulse Resp BP Pulse Ox 98.5 F 52 L 17 135/82 95 07/24/19 13:56 07/24/19 13:56 07/24/19 13:56 07/24/19 13:56 07/24/19 13:56 Work up: ddx: patient presents with obvious deformity of the left elbow s/p mechanical traumatic fall. will obtain left shoulder, left elbow, and left wrist/hand xray images. Intact neurovascular in the left arm. Initial xray shows comminuted fracture through the proximal ulna with disruption of the elbow joint and intra-articular hemorrhage. Upper extremity CT was obtained due to patient's inability to tolerate the rest of the elbow xray positions. CT reveals acute comminuted distracted fractures involving the radial head, neck, and proximal ulnar. Radial head is sublexed medially. Dr. Lund's office was contacted and spoke to Emy. Patient was prepared for reduction with post-reduction xrays obtained. Per Dr. Lund, they are adequate and the patient is to follow up in his office for an appointment on Saturday. xrays dont show significant change prior to reduction. Re-examination after reduction shows intact pulses and intact neuro sensation. Dispo: Discharge <Rao Moreno - Last Filed: 07/25/19 10:21> Discharge <Elana Melgar - Last Filed: 07/24/19 17:42> - Discharge Information Problems reviewed: Yes - Admission No <Rao Moreno - Last Filed: 07/25/19 10:21> - Discharge Information Clinical Impression/Diagnosis: Elbow fracture, left Qualifiers: Encounter type: initial encounter Fracture type: closed Qualified Code(s): S42.402A - Unspecified fracture of lower end of left humerus, initial encounter for closed fracture Condition: Improved Disposition: HOME - Additional Discharge Information Prescriptions: Oxycodone HCl/Acetaminophen [Percocet 5-325 mg Tablet] 1 tab PO Q6H PRN #8 tablet MDD 4 PRN Reason: Pain Oxycodone HCl/Acetaminophen [Percocet 5/325 -] 1 tab PO Q6H #14 tablet MDD 4 - Follow up/Referral Referrals: [facility] [place] [facility] [place] [Provider Group] Kip Lund MD [Staff Physician] - - Patient Discharge Instructions Patient Printed Discharge Instructions: How to Take Care of Your Cast, Elbow Fracture, DI for Elbow Fracture Additional Instructions: You were seen in the emergency department for the evaluation of your elbow fracture. Please follow up with your primary medical doctor within 1 week after discharge. Please call the orthopedics doctor's office that was referred to you this Saturday (07/27/2019). Please make sure to follow up it is very important. Please return to the emergency department if you have worsening symptoms or new concerning symptoms such as loss of feelings in the fingers. Thank you. - Post Discharge Activity Work/Back to School Note: Back to Work
[2019-07-24] MEDS ORDERED: morphine CARPU-JECT 4 MG/1 ML DISP.SYRIN IVPUSH ONE (14:24)
[2019-07-24] MEDS ORDERED: MORPHINE SULFATE 2 MG/ML VIAL ONE (14:32)
--- NOTE | 2019-07-24 15:06 | PDOC ---
Attending Attestation - Resident Resident Name: Rao Moreno - ED Attending Attestation I have performed the following: I have examined & evaluated the patient, The case was reviewed & discussed with the resident, I agree w/resident's findings & plan - HPI HPI: 07/24/19 15:12 63-year-old male with history of hypertension, hyperlipidemia, CAD, on aspirin, [place] s/p 2 stents and urinary retention s/p TURP presenting with fall from 8 foot ladder and landing on his left elbow no head injury or LOC. c/o left elbow pain, limitations with movement due to pain swelling. no paresthesias/no weakness, wiggles fingers. no chest pain or back pain or shortness of breath, no abdominal pain. 07/24/19 15:43 07/24/19 17:40 - Physicial Exam PE: 07/24/19 15:24 Physical exam: General: GCS 15 - NAD, well appearing HEENT: NCAT, PERRL, EOMI. Airway intact. No battles sign or raccoon eyes. No e/ o ocular. Dentition intact. No e/o septal hematoma, nasal bridge stable. Neck: neck supple, no midline C spine tenderness or deformity, ROM intact. No anterior mass or crepitus, trachea midline. Resp: Lungs clear bilaterally Chest: no clavicle or chest wall tenderness or crepitus CVS: RRR, 2+ pulses throughout. Abdomen: Abdomen soft, nontender, nondistended. Back: Back nontender, no midline spinal tenderness along cervical/thoracic/ lumbar spine, FROM, no stepoffs. MSK: Pelvis stable, Upper Extremity: +obvious deformity to left elbow, +very TTP with swelling and limitations in ROM 2/2 pain. shoulder abduction/adduction/flexion/extension and prox strength 5/5 actively against resistance. 5/5 shoulder shrug strength. deltoid sensation intact; sensation grossly intact in median/radial/ulnar distribution. distal roof truss builder strength 5/5. wiggles fingers. 2+ radialis pulses bilaterally and symmetric. Neuro: Alert, oriented appropriately. CN II-XII grossly symmetric and intact. no focal neuro deficits. Sensation and strength intact throughout. Gait normal/ stable. Skin: intact, normal color and well perfused. No ecchymosis or wounds at neck, chest or abdomen. - Medical Decision Making 07/24/19 15:24 Vital Signs Temp Pulse Resp BP Pulse Ox 98.5 F 52 L 17 135/82 95 07/24/19 13:56 07/24/19 13:56 07/24/19 13:56 07/24/19 13:56 07/24/19 13:56 E-FAST A coronal plane of the right upper quadrant was obtained and was negative for anechoic fluid in the right chest, in Bowden's pouch, or the right paracolic gutter. suprapubic window was negative for free fluid posterior and lateral to the bladder. Next, a coronal plane of the left upper quadrant was obtained and was negative for anechoic fluid in the left chest, the splenorenal space, and the left paracolic gutter. ext, subcostal and parasternal long windows of the heart were negative for the presence of free fluid in the pericardial space. Bilateral lung sliding present, no e/o PTX. These images were captured on the internal hard drive for archival and corporate quality assurance manager purposes. Left elbow x-rays limited but on lateral view there is evidence of acute left comminuted and displaced, intra articular proximal olecranon fracture with dislocation. Other views are limited due to the positioning and pain CT upper extremity for surgical planning and more optimal views given limitations. CT with confirmation of acute comminuted distracted fractures involving the radial head neck and proximal ulna, there is subluxation and dislocation medially. ortho cs with Dr Lobato/Aster, speaking with MOISÉS Cuevas, consult for reduction/ surgical management given complicated fracture/dislocation as discussed, ortho PA will come to reduce, place in splint. surgery once swelling/acute inflammation down as outpatient likely. 07/24/19 17:42 07/24/19 19:57
[2019-07-24] MEDS ORDERED: HYDROmorphone HCL CARPU-JECT 2 MG/1 ML DISP.SYRIN IVPUSH ONE ×3 (15:17→19:49)
[2019-07-24] MEDS ORDERED: HYDROmorphone HCl 2 MG/ML VIAL ONE (15:18)
[2019-07-24 15:37] LABS: BASO % 0.6 % (0-2.0); EOS % 1.8 % (0-4.5); HEMATOCRIT 52.5 % (35.4-49); HEMOGLOBIN 17.2 GM/dL (11.7-16.9); LYMPH % 24.2 % (8-40); MCH 29.9 pg (25.7-33.7); MCHC 32.7 g/dl (32.0-35.9); MEAN CELL VOLUME 91.4 fl (80-96); MEAN PLT VOLUME 8.6 fl (7.5-11.1); MONO % 8.4 % (3.8-10.2); PLATELET COUNT 243 K/MM3 (134-434); RBC 5.74 M/mm3 (4.00-5.60); RDW 15.3 % (11.9-15.9); WHITE BLOOD COUNT 7.3 K/mm3 (4.0-10.0)
[2019-07-24 15:55] LABS: ALBUMIN 3.9 g/dl (3.4-5.0); BILIRUBIN,TOTAL 0.5 mg/dL (0.2-1); BLOOD UREA NITROGEN 22.5 mg/dL (7-18); CALCIUM 9.3 mg/dL (8.5-10.1); CREATININE 1.2 mg/dL (0.55-1.3); POTASSIUM 4.4 mmol/L (3.5-5.1); TOT PROT 7.1 g/dl (6.4-8.2)
[2019-07-24 16:08] LABS: INR 1.07 (0.83-1.09); PROTHROMBIN TIME (PATIENT) 12.6 SEC (9.7-13.0)
[2019-07-24 16:10] LABS: ACTIVATED PTT 33.8 SECONDS (25.2-36.5)
--- NOTE | 2019-07-24 20:09 | CON.ORTH ---
Consult Consult Specialty:: Orthopedics Reason for Consultation:: Left proximal ulnar fracture and dislocation - History of Present Illness Chief Complaint: Left elbow pain s/p fall History of Present Illness: This is a 63 yo M with PMHX of CAD and HLD who presented to ED with left elbow pain s/p fall off 8 ft ladder earlier today. Patient states he landed on his left elbow. Since then, he has been unable to straighten his arm. He denies any previous injury to this elbow. Denies any numbness, tingling to fingers. - History Source History Provided By: Patient Limitations to Obtaining History: No Limitations - Alcohol/Substance Use Hx Alcohol Use: No - Smoking History Smoking history: Never smoked Have you smoked in the past 12 months: No Home Medications - Allergies Allergies/Adverse Reactions: Allergies Allergy/AdvReac Type Severity Reaction Status Date / Time No Known Allergies Allergy Verified 05/05/19 16:20 - Home Medications Home Medications: Ambulatory Orders Finasteride [Proscar] 5 mg PO DAILY 12/15/17 Aspirin 81 mg PO DAILY 03/24/18 Atorvastatin Calcium 40 mg PO DAILY 03/24/18 Ibuprofen 800 mg PO PRN PRN 05/05/19 Review of Systems - Review of Systems Musculoskeletal: reports: Joint Pain (Left elbow pain and swelling) Physical Exam for Ortho Vital Signs: Vital Signs Temperature 98.5 F 07/24/19 13:56 Pulse Rate 55 L 07/24/19 17:47 Respiratory Rate 16 07/24/19 17:47 Blood Pressure 136/83 07/24/19 17:47 O2 Sat by Pulse Oximetry (%) 98 07/24/19 17:47 Constitutional: Yes: Well Nourished, No Distress Labs: CBC, BMP 07/24/19 15:05 07/24/19 15:05 INR, PTT INR 1.07 (0.83-1.09) 07/24/19 15:05 - Upper Extremity Elbow: Yes: Left (No skin lesions. Diffuse swelling. Decreased ROM. Tenderness about the proximal ulna. NVID.) Imaging - Results X-ray: Image Reviewed (Lateral XR of left elbow shows comminuted fracture of proximal ulna with radial head dislocation.) Cat Scan: Report Reviewed, Image Reviewed (UE CT w/o contrast shows comminuted fracturesof radial head, neck and proximal ulna with radial head dislocation.) Problem List - Problems (1) Left ulnar fracture Code(s): S52.A - UNSP FRACTURE OF SHAFT OF LEFT ULNA, INIT FOR CLOS FX Assessment/Plan 63 yo M with PMHX of CAD and HLD presented to ED with left elbow pain s/p fall off 8 ft ladder earlier today. -Case discussed with Dr. Lund -Elbow XR and UE CT shows comminuted proximal ulna fracture and radial head dislocation -Due to his significant swelling, surgery to be done next week most likely -Patient consented for reduction of left radial head in ER -Procedure as below -Patient tolerated procedure well -F/u with Dr. Lund as outpatient to further discuss surgical options Procedure: Under sterile procedure, 20 cc of lidocane were injected into the left elbow joint. Closed reduction of radial head was performed. Patient was then placed in posterior splint and sling.
[2019-07-24] MEDS ORDERED: ONDANSETRON 4 MG/2 ML VIAL IVPUSH ONE (20:25)
[2019-07-24] MEDS ORDERED: ONDANSETRON 4 MG/2 ML VIAL ONE ×2 (20:27→20:33)
--- NOTE | 2019-07-24 20:36 | PDOC ---
*Physical Exam - Vital Signs Last Vital Signs Temp Pulse Resp BP Pulse Ox 98.5 F 55 L 16 136/83 98 07/24/19 13:56 07/24/19 17:47 07/24/19 17:47 07/24/19 17:47 07/24/19 17:47 ED Treatment Course - LABORATORY CBC & Chemistry Diagram: 07/24/19 15:05 07/24/19 15:05 - ADDITIONAL ORDERS Additional order review: Laboratory Results 07/24/19 07/24/19 07/24/19 15:05 15:05 15:05 PT with INR 12.60 INR 1.07 PTT (Actin FS) 33.8 Sodium 139 Potassium 4.4 Chloride 103 Carbon Dioxide 32 Anion Gap 5 L BUN 22.5 H Creatinine 1.2 Est GFR (CKD-EPI)AfAm 74.66 Est GFR (CKD-EPI)NonAf 64.42 Random Glucose 156 H Calcium 9.3 Total Bilirubin 0.5 AST 23 ALT 31 Alkaline Phosphatase 76 Total Protein 7.1 Albumin 3.9 Blood Type O POSITIVE Antibody Screen Negative 07/24/19 15:05 RBC 5.74 H MCV 91.4 MCHC 32.7 RDW 15.3 MPV 8.6 Neutrophils % 65.0 Lymphocytes % 24.2 Monocytes % 8.4 Eosinophils % 1.8 Basophils % 0.6 - Medications Given in the ED: ED Medications Discontinued Medications Generic Name Dose Route Start Last Admin Trade Name Loni PRN Reason Stop Dose Admin Fentanyl 50 mcg 07/24/19 19:55 07/24/19 20:19 Sublimaze Injection - IVPUSH 07/24/19 19:56 50 mcg ONCE ONE Administration Hydromorphone HCl 1 mg 07/24/19 15:17 07/24/19 15:25 Dilaudid Injection - IVPUSH 07/24/19 15:18 1 mg ONCE ONE Administration Hydromorphone HCl 1 mg 07/24/19 17:37 07/24/19 17:48 Dilaudid Injection - IVPUSH 07/24/19 17:38 1 mg ONCE ONE Administration Hydromorphone HCl 1 mg 07/24/19 19:49 07/24/19 20:20 Dilaudid Injection - IVPUSH 07/24/19 19:50 Not Given ONCE ONE Morphine Sulfate 4 mg 07/24/19 14:24 07/24/19 14:44 Morphine Injection - IVPUSH 07/24/19 14:25 4 mg ONCE ONE Administration Medical Decision Making - Medical Decision Making 07/24/19 20:35 Pt signed out to me with fracture dislocation of her elbow. Pt is being seen by the orthoperdics PA at this time. 07/24/19 22:04 Pt's dislocation was reduced, however poor apposition of the proximal radial and ulnar fractures when arm is flexed at elbow to 90 degrees. Orthopedic attending is aware of this and he will follow the patient on Saturday. Pt is stable for discharge. Discharge - Discharge Information Problems reviewed: Yes Clinical Impression/Diagnosis: Elbow fracture, left Qualifiers: Encounter type: initial encounter Fracture type: closed Qualified Code(s): S42.402A - Unspecified fracture of lower end of left humerus, initial encounter for closed fracture Condition: Improved Disposition: HOME - Admission No - Additional Discharge Information Prescriptions: Oxycodone HCl/Acetaminophen [Percocet 5-325 mg Tablet] 1 tab PO Q6H PRN #8 tablet MDD 4 PRN Reason: Pain Oxycodone HCl/Acetaminophen [Percocet 5/325 -] 1 tab PO Q6H #14 tablet MDD 4 - Follow up/Referral Referrals: [facility] [place] [facility] [place] [Provider Group] Kip Lund MD [Staff Physician] - - Patient Discharge Instructions Patient Printed Discharge Instructions: How to Take Care of Your Cast, Elbow Fracture, DI for Elbow Fracture Additional Instructions: You were seen in the emergency department for the evaluation of your elbow fracture. Please follow up with your primary medical doctor within 1 week after discharge. Please call the orthopedics doctor's office that was referred to you this Saturday (07/27/2019). Please make sure to follow up it is very important. Please return to the emergency department if you have worsening symptoms or new concerning symptoms such as loss of feelings in the fingers. Thank you. - Post Discharge Activity Work/Back to School Note: Back to Work
[2019-07-24] MEDS ORDERED: LIDOCAINE HCL 1%, 10 MG/ML (20ML VIAL) ONE (20:41)
[2019-07-24 23:16] VITALS: BP 122/76; PULSE 60; TEMP 98.1
--- NOTE | 2019-07-25 10:18 | EKG ---
Test Reason : Blood Pressure : / mmHG Vent. Rate : 052 BPM Atrial Rate : 052 BPM P-R Int : 130 ms QRS Dur : 094 ms QT Int : 440 ms P-R-T Axes : 023 -11 050 degrees QTc Int : 409 ms SINUS BRADYCARDIA INFERIOR INFARCT (CITED ON OR BEFORE 11-DEC-2016) POSSIBLE ANTERIOR INFARCT , AGE UNDETERMINED ABNORMAL ECG WHEN COMPARED WITH ECG OF 25-MAR-2018 08:40, NONSPECIFIC T WAVE ABNORMALITY NOW EVIDENT IN ANTERIOR LEADS Confirmed by ALETHEA KAHN MD ([id number]) on 07/25/2019 10:17:24 AM Referred By: Confirmed By:ALETHEA KAHN MD
== END 2019-07-24 23:17 | disposition home or self-care (01) ==
LOC: JER 13:53
PROC: 3E033NZ Introduction of Analgesics, Hypnotics, Sedatives into Peripheral Vein, Percutaneous Approach (ICD-10-PCS; principal; 2019-07-24)
PROC: 3E033GC Introduction of Other Therapeutic Substance into Peripheral Vein, Percutaneous Approach (ICD-10-PCS; 2019-07-24)
DX: S42.402A Unspecified fracture of lower end of left humerus, initial encounter for closed fracture (principal); W11.XXXA Fall on and from ladder, initial encounter; Y93.89 Activity, other specified; Y92.009 Unspecified place in unspecified non-institutional (private) residence as the place of occurrence of the external cause; I25.10 Atherosclerotic heart disease of native coronary artery without angina pectoris; N40.0 Benign prostatic hyperplasia without lower urinary tract symptoms; E78.5 Hyperlipidemia, unspecified; I25.2 Old myocardial infarction
CPT/HCPCS: 36415; 73030-TC-LT-FY; 73070-TC-LT-FY; 73110-TC-LT-FY; 73130-TC-LT-FY; 73200-TC-RT; 80053; 85025; 85610; 85730; 86850; 86900; 86901; 93005; 93010; 99283-25

== ENCOUNTER → 2019-07-29 | Day surgery (SDC) | payer BC ==
[2019-07-28 12:33] VITALS: BMI 26.4
[~2019-07-29] MED LIST: DEXAMETHASONE SOD PHOSPHATE/PF 10 MG/ML SDV ONE; KETOROLAC TROMETHAMINE 30 MG/1 ML VIAL ONE; LACTATED RINGERS SOLUTION 1,000 ML IV SCH; LIDOCAINE HCL/PF 2% SDV 5ML VIAL ONE; MIDAZOLAM HCL 2 MG/2 ML SINGLE DOSE VIAL ONE; ONDANSETRON 4 MG/2 ML VIAL IVPUSH PRN; ONDANSETRON 4 MG/2 ML VIAL ONE; PROPOFOL 20 ML ONE; ROPIVACAINE HCL 0.5% 30ML VIAL ONE; ceFAZolin SODIUM 1 GM VIAL ONE; oxyCODONE HCL 5 MG TABLET PO PRN
[2019-07-30 00:17] VITALS: BP 116/75; PULSE 77; TEMP 98.7
--- NOTE | 2019-07-31 14:14 | OP ---
DATE OF OPERATION: 07/29/2019 PREOPERATIVE DIAGNOSIS: 1. Left comminuted, displaced proximal ulna fracture with dislocation of radial head (Mon[place]ggia fracture). 2. Left radial head fracture. POSTOPERATIVE DIAGNOSES: 1. Left elbow [place] fracture. 2. Left radial head fracture. 3. Left elbow ligamentous tear of lateral collateral ligament and annular ligament. OPERATIVE PROCEDURES: 1. Open reduction and internal fixation of left [place] fracture, including reduction of radial head, and open reduction and internal fixation of the comminuted proximal ulna fracture, including coronoid and olecranon fragments. 2. Open reduction and internal fixation of left radial head fracture. 3. Repair of lateral collateral ligament of left elbow. SURGEON: Chauncey Fletcher MD INDEPENDENT AGENT MUSIC EDUCATION: MOISÉS Leon ANESTHESIA: Regional and general. COMPLICATIONS: None. ESTIMATED BLOOD LOSS: Minimal. INDICATION FOR PROCEDURE: The patient is a 63-year-old, male with the above finding, indicated for operative treatment. The risks, benefits, and alternatives were discussed with patient at length. Proper informed consent was obtained. PROCEDURE: After proper identification of patient and corrective operative site, patient was brought to the operating room, placed supine on the table with all prominences well padded. Regional and general anesthesia had been provided and the patient was placed into the lateral decubitus position with the right side down and the left side up with a beanbag, axillary roll, and all points of contact well padded. Left arm was prepped and draped in the usual sterile fashion and draped over a padded bolster. Esmarch bandage used to exsanguinate left upper extremity. The tourniquet was inflated to 250 mmHg. Curvilinear incision was made over the dorsal aspect of the olecranon all the way down to the midaspect of the forearm. The incision was taken sharply through skin with blunt and sharp dissection performed through the subcutaneous tissues. Highly comminuted fracture of the proximal ulna was noted, glenoid and olecranon fragments. In addition, the radial head was dislocated and fractured. The fracture of the radial head was found to be an oblique fracture across the intra-articular portion of the radial head and approximately one-third of the entire radial head had been avulsed off. This fragment was found and debrided and an open reduction and internal fixation was then performed using micro-Acutrak screws; two total were placed. This was done by getting an anatomic articular reduction visually achieved and then placing guide wires across this and then replacing these after reaming with Acutrak 2 microscrews. This provided secure, stable fixation of the radial head fracture. The radial head was then reduced . Annual ligament had partial tearing, as did the ulna lateral collateral ligament, which were repaired with a 3-0 Vicryl suture each to soft tissue at the end of the case. Of note, there was a delay during the surgery, in which there was an equipment issue with the Acutrak screws, which did delay the case. During this time, the tourniquet was released. Once the radial head was repaired and relocated, the ulna shaft was brought out to length and several small lag screws were used to repair some of the larger comminuted fragments, including part of the olecranon and ulna shaft, and the coronoid fracture was reduced to this as well with a lag screw. An Acumed olecranon locking plate was then placed on the proximal aspect of the ulna and secured proximally with locking screws and distally with non-locking screws. Radiographs were taken in multiple planes, confirming proper reduction of fracture in the elbow including the radial head and ulnohumeral joint. Wound was irrigated with copious amounts of normal saline and repaired in layers, including the radial collateral ligament, annular ligament, and the skin in layers using Vicryl suture and skin drew. Elbow was taken through a range of motion. There were no . Final x-rays were taken, showing proper reduction of all fractures, and placement and sizing of all hardware, and stability of the area of the fracture and elbow. Sterile dressings and a splint were placed. Patient was reversed from anesthesia and brought to the recovery room in stable condition. He tolerated procedure well. Dequan Julio, the administrative support assistant, was integral throughout the procedure. Procedure could not have been performed without a skilled operative administrative support assistant. CHAUNCEY FLETCHER M.D. ROXANNE/[id number]
== END | disposition home or self-care (01) ==
LOC: FASU 14:04
PROVIDERS: ATTEND Orthopaedic Surgery Hand Surgery
PROC: 0PSK04Z Reposition Right Ulna with Internal Fixation Device, Open Approach (ICD-10-PCS; 2019-07-29)
PROC: 0MU407Z Supplement Left Elbow Bursa and Ligament with Autologous Tissue Substitute, Open Approach (ICD-10-PCS; 2019-07-29)
PROC: [UNRECOGNIZED PROCEDURE] (2019-07-29)
PROC: 0PSH04Z Reposition Right Radius with Internal Fixation Device, Open Approach (ICD-10-PCS; principal; 2019-07-29 16:18)
DX: S52.272A Monteggia's fracture of left ulna, initial encounter for closed fracture (principal); S52.122A Displaced fracture of head of left radius, initial encounter for closed fracture; S53.442A Ulnar collateral ligament sprain of left elbow, initial encounter; X58.XXXA Exposure to other specified factors, initial encounter; Y93.9 Activity, unspecified; Y92.9 Unspecified place or not applicable
CPT/HCPCS: 24343; 24635; C1713; 73090-TC-LT-FY; 94760

== ENCOUNTER 2019-08-29 22:46 | Inpatient (IN) | payer BC, OTHER ==
--- NOTE | 2019-08-29 23:01 | PDOC ---
History of Present Illness - General Chief Complaint: Chest Pain Stated Complaint: CHEST PAIN Time Seen by Provider: 08/29/19 23:00 History Source: Patient Exam Limitations: No Limitations - History of Present Illness Initial Comments: Jese Moya is a 63 yo M w a hx of ff CAD (AR 2014; 2 stents currently on aspirin 81 mg), BPH, and HLD who presents to the [facility] er with chest pain. The chest pain was substernal in nature and started 1 hour prior to arrival. he states it is worst in the epigastric region and it radiates up his chest. The chest pain is associated with SOB, which began after dancing at a alliance party. The patient was involved in a significant amount of dancing at this alliance party before the chest pain began. Patient states his pain right now is a 4/10 but when he was walking into the ER the physical activity was making his chest pain worse. He denies radiation down either of his arms. The patient vomited twice during this chest pain. He also states his throat and eyes feel warm and he endorses skin flushing. Patient recently had an orthopedic surgery of his left arm within the past month. He is on day 1 of keflex right now secondary to the purulent drainage from the site. Denies fevers, chills, constipation, pleuritic chest pain, diarrhea PCP: Trey frederick PSH: TURP, Stent, left inguinal hernia sx, lithotripsy Urologist - Dr. Bright Cards: Saw Erich in Past Social Hx: Denies smoking, drinking, or other substance usage Allergies: NKA, NKDA Past History - Past Medical History Allergies/Adverse Reactions: Allergies Allergy/AdvReac Type Severity Reaction Status Date / Time No Known Drug Allergies Allergy Verified 08/29/19 22:56 Home Medications: Ambulatory Orders Finasteride [Proscar] 5 mg PO DAILY 12/15/17 Aspirin 81 mg PO DAILY 03/24/18 Atorvastatin Calcium 20 mg PO HS 03/24/18 Naproxen Sodium [Aleve] 2 tab PO ASDIR PRN 07/28/19 Potassium Citrate [Urocit-K] 15 meq PO BID 07/28/19 Anemia: No Asthma: No Cancer: No Cardiac Disorders: Yes (AR 01/25 [facility]IB WENT TO [facility]) CVA: No COPD: No CHF: No DVT: No Dementia: No Diabetes: No GI Disorders: No Disorders: Yes (KIDNEY STONES) HTN: No (DENIES) Hypercholesterolemia: Yes Kidney Stones: Yes Liver Disease: No Seizures: No Thyroid Disease: No - Surgical History Abdominal Surgery: Yes (LEFT INGUINAL HERNIA REPAIR) Appendectomy: No Cardiac Surgery: Yes (CARDIAC STENT 02/03/16) Cholecystectomy: No Lung Surgery: No Neurologic Surgery: No Orthopedic Surgery: No - Immunization History Immunization Up to Date: Yes - Psycho Social/Smoking Cessation Hx Smoking History: Never smoked Have you smoked in the past 12 months: No Hx Alcohol Use: No Drug/Substance Use Hx: No Substance Use Type: None Hx Substance Use Treatment: No Cardiac Specific PMH - Complaint Specific PMHX Pacemaker: No Review of Systems - Review of Systems Able to Perform ROS?: Yes Comments:: CONSTITUTIONAL: Absent: fever, no chills, no fatigue EYES: Absent: visual changes ENT: Absent: ear pain, no sore throat CARDIOVASCULAR: Present: Chest pain Absent: no palpitations RESPIRATORY: Present: SOB Absent: cough GI: Present: Nausea, vomiting Absent: abdominal pain, no constipation, no diarrhea GENITOURINARY: Absent: dysuria, no frequency, no hematuria MUSKULOSKELETAL: Absent: back pain, no arthralgia, no myalgia SKIN: Absent: rash NEURO: Absent: headache *Physical Exam - Vital Signs Last Vital Signs Temp Pulse Resp BP Pulse Ox 98.8 F 93 H 18 138/86 97 08/29/19 22:54 08/29/19 22:54 08/29/19 22:54 08/29/19 22:54 08/29/19 22:54 - Physical Exam GENERAL: Well-appearing, well-nourished. Mild distress. HEENT: Normocephalic, atraumatic. PERRL, EOM intact. CARDIOVASCULAR: Tachycardic rate. Normal S1, S2. Regular rhythm. PULMONARY: No evidence of respiratory distress. Lungs clear to auscultation bilaterally. No wheezing, rales or rhonchi. ABDOMEN: Soft, non-distended, non-tender. EXTREMITIES: Normal ROM in all four extremities. No gross deformities. SKIN: Warm, dry. No rash NEUROLOGICAL: No focal neurological deficits. Heart Score/ECG Review - History History: Highly suspicious - Electrocardiogram EKG: Normal - Age Age: 45-65 - Risk Factors Risk Factors Heart Score: Yes Hx Hypercholesterolemia, Yes Hx Hypertension, Yes Hx Diabetes, Yes Smoking History, Yes Positive family hx of cardiac disease Based on the list above the patient has:: >/=3 risk factors or Hx atherosclerotic disease - Troponin Troponin: </= normal limit - Score Heart Score - Total: 5 - ECG Intrepretation Rhythm: Regular Rhythm - [place]: Normal - QRS Poor R Wave Progression: No Q Wave Present: Yes Comment:: Q waves in inferior leads III and aVF - ST and T Non Specific ST-T Wave changes: No Flattened T Waves: Yes Prolonged Q-T Interval: No Comment:: QTc 429 - ECG Impressions Normal ECG: No Non-specific ST Elevation: No Ischemic Changes: Yes ED Treatment Course - LABORATORY CBC & Chemistry Diagram: 08/29/19 23:30 08/29/19 23:30 - ADDITIONAL ORDERS Additional order review: Laboratory Results 08/29/19 08/29/19 23:30 23:30 PT with INR 12.90 INR 1.09 PTT (Actin FS) 34.0 Creatine Kinase 294 Troponin I < 0.02 B-Natriuretic Peptide 14.9 08/29/19 23:30 RBC 5.27 MCV 88.5 MCHC 33.4 RDW 15.0 MPV 8.1 Neutrophils % 80.2 D Lymphocytes % 6.7 L D Monocytes % 9.3 Eosinophils % 3.3 D Basophils % 0.5 - RADIOLOGY Radiology Studies Ordered: Category Date Time Status CHEST X-RAY PORTABLE* [RAD] Stat Radiology 08/29/19 23:00 Taken - Medications Given in the ED: ED Medications Discontinued Medications Generic Name Dose Route Start Last Admin Trade Name Freq PRN Reason Stop Dose Admin Al Hydroxide/Mg Hydroxide 30 ml 08/30/19 00:14 08/30/19 00:32 Mylanta Oral Suspension - PO 08/30/19 00:15 30 ml ONCE ONE Administration Aspirin 162 mg 08/29/19 23:41 08/29/19 23:48 Asa - PO 08/29/19 23:42 162 mg ONCE ONE Administration Famotidine/Sodium Chloride 20 mg in 50 mls @ 100 mls/hr 08/30/19 00:14 00:31 Pepcid 20 Mg Premixed Ivpb - IVPB 08/30/19 00:43 100 mls/hr ONCE ONE Administration Nitroglycerin 0.4 mg 08/29/19 23:41 08/29/19 23:48 Nitrostat - SL 08/29/19 23:42 0.4 mg ONCE ONE Administration Sodium Chloride 1,000 ml 08/30/19 00:12 08/30/19 00:20 Normal Saline - IV 08/30/19 00:13 1,000 ml ONCE ONE Administration Medical Decision Making - Medical Decision Making 63 yo M w a hx of AR and stent presents with substernal chest pain associated with SOB provoked by physical activity with radiation up his throat, associated with 2 episodes of vomiting. HEART score: 5 EKG: No STEMI Vital Signs Temp Pulse Resp BP Pulse Ox 98.8 F 93 H 18 138/86 97 08/29/19 22:54 08/29/19 22:54 08/29/19 22:54 08/29/19 22:54 08/29/19 22:54 DDx IBNLT: ACS - STEMI vs NSTEMI vs unstable angina, GERD Plan: EKG, labs, CXR, POCUS chest, Admit to tele for chest pain EKG: see ekg section POCUS Chest Heart: Hyperdynamic, no focal wall motion abnormalities, overall great ejection fraction, normal LV/Rv ratio Lungs: Clear lungs. normal A-lines, no b-lines, no pleural effusions, normal lung sliding b/l IVC: collapses with respiration, patient can likely tolerate IV hydration CXR: Unremarkable Labs: Trop negative Disposition: Telemetry Obs Signing patient out to Dr. Solomon to complete ED workup and patient's final ED disposition - Patient endorsed to hospitalist Discharge - Discharge Information Problems reviewed: Yes Clinical Impression/Diagnosis: Chest pain Qualifiers: Chest pain type: unspecified Qualified Code(s): R07.9 - Chest pain, unspecified Condition: Stable - Admission Yes - Follow up/Referral Referrals: Trey Frederick MD [Primary Care Provider] - - Patient Discharge Instructions - Post Discharge Activity
--- NOTE | 2019-08-29 23:19 | PDOC ---
Attending Attestation - Resident Resident Name: Chino Newsome - ED Attending Attestation I have performed the following: I have examined & evaluated the patient, The case was reviewed & discussed with the resident, I agree w/resident's findings & plan - HPI HPI: 08/29/19 23:48 Pt comes with chest pain that began 2 hrs ago. Flushing of face and SOB; tightness of the epigastric area that radiates up the esophagus to the throat. Pt was complaining of burning throat today earlier in the day. Pt didn't get a flu shot He has no ill contacts. He and his were shopping at [employer] earlier in the day Pt states that he broke his arm couple weeks ago; shattered left elbow that has hardware in it and he has been at PT , that caused opening of the skin and dehiscence with some pus. He started keflex today for the elbow cellulitis dehiscence 08/30/19 01:53 - Physicial Exam PE: 08/30/19 01:33 Heart RRR lungs: crackles in the RIGHT middle lobe afebrile Pt's face is flushed Pharynx is red; but no exudates Ears TMs normal HEENT otherside normal no abd pain no flank pain No pitting edema - Medical Decision Making 08/30/19 00:43 Pt may have a blood clot in the left elbow arm that dislodged and went to the chest Pt may have TX Pt may have GERD Pt may have strep throat Pt has crackles in the right middle lobe area ? pneumonia/viral pneumonia 08/30/19 01:30 Cardiac enzymes normal Strep pending WBC 10; chem pending 08/30/19 01:53 Chem is normal Strep pending 08/30/19 04:43 Strep negative Flu negative D-Dimer positive at 800s Pt awaiting CTA 08/30/19 06:30 Patient Name: NATALIE FELIX THIS IS A PRELIMINARY REPORT FROM [facility] DATE OF SERVICE: 2019-08-30 04:50:21 IMAGES: [id number] EXAM: CHEST CTA HISTORY: Rule out PE COMPARISON: None. FINDINGS: There is no PE or dissection. Heart size is normal. The trachea and bronchi are patent. There is no pleural or pericardial effusion. The lungs are clear other than minimal dependent atelectasis chest. No fractures identified. The upper abdominal structures are normal. IMPRESSION: No evidence of acute pathology. Pt admitted for further workup Heart Score/ECG Review - ECG Intrepretation Rhythm: Regular Rhythm - [place]: Normal - P and [place] Prominent R with upright T in V1 (true posterior TX): No Delta Wave(s) Present: No WPW: No - QRS Poor R Wave Progression: No Q Wave Present: Yes Comment:: 08/30/19 01:31 Q waves in 3 and aVF - ST and T Early Repolarization: No Non Specific ST-T Wave changes: No Flattened T Waves: No Prolonged Q-T Interval: No - ECG Impressions Normal ECG: Yes Non-specific ST Elevation: No Ischemic Changes: No Bradycardia: No Torsades asmita Pointes: No
[2019-08-29] MEDS ORDERED: ASPIRIN 81 MG CHEWABLE TABLETS PO ONE (23:41)
[2019-08-29] MEDS ORDERED: NITROGLYCERIN SUBLINGUAL 1/150 0.4 MG TAB SL ONE (23:41)
[2019-08-29] MEDS ORDERED: ASPIRIN 81 MG CHEWABLE TABLETS ONE (23:43)
[2019-08-29] MEDS ORDERED: NITROGLYCERIN SUBLINGUAL 1/150 0.4 MG TAB ONE (23:44)
[2019-08-29 23:50] LABS: BASO % 0.5 % (0-2.0); EOS % 3.3 % (0-4.5); HEMATOCRIT 46.7 % (35.4-49); HEMOGLOBIN 15.6 GM/dL (11.7-16.9); LYMPH % 6.7 % (8-40); MCH 29.6 pg (25.7-33.7); MCHC 33.4 g/dl (32.0-35.9); MEAN CELL VOLUME 88.5 fl (80-96); MEAN PLT VOLUME 8.1 fl (7.5-11.1); MONO % 9.3 % (3.8-10.2); NEUT % 80.2 % (42.8-82.8); PLATELET COUNT 225 K/MM3 (134-434); RBC 5.27 M/mm3 (4.00-5.60); WHITE BLOOD COUNT 10.3 K/mm3 (4.0-10.0)
[2019-08-30 00:01] LABS: INR 1.09 (0.83-1.09); PROTHROMBIN TIME (PATIENT) 12.9 SEC (9.7-13.0)
[2019-08-30] MEDS ORDERED: SODIUM CHLORIDE 0.9% 500 ML INFUS.BAG IV ONE (00:12)
[2019-08-30] MEDS ORDERED: FAMOTIDINE 20 MG/50 ML IVPB 20 MG/50 ML MG IVPB ONE ×2 (00:14→00:23)
[2019-08-30] MEDS ORDERED: MAG HYDROX/AL HYDROX/SIMETH 30 ML UNIT-DOSE CUP PO ONE (00:14)
[2019-08-30 00:22] LABS: N-TERMINAL BNP 14.9 pg/ml (5-125)
[2019-08-30] MEDS ORDERED: MAG HYDROX/AL HYDROX/SIMETH 30 ML UNIT-DOSE CUP ONE (00:23)
--- NOTE | 2019-08-30 00:58 | PN ---
Teaching Attending Note Name of Resident: Sharad Shore ATTENDING PHYSICIAN STATEMENT I saw and evaluated the patient. I reviewed the resident's note and discussed the case with the resident. I agree with the resident's findings and plan as documented. SUBJECTIVE: Patient is a 63 year man with a PMH CAD ([place] 2015, 2 stents), BPH, Kidney stones (s/p lithotripsy) and HLD who presents to the ER with chest pain. The chest pain is substernal and started 1 hour prior to arrival. Pain is worse in the epigastric region and it radiates up his chest. The chest pain is associated with SOB, which began after dancing at a [employer] party. The patient was involved in a significant amount of dancing at this [employer] party before the chest pain began. Patient states his pain right now is a 4/10 but when he was walking into the ER the physical activity was making his chest pain worse. He denies radiation down either of his arms. The patient vomited twice during this chest pain. He also states his throat and eyes feel warm and has skin flushing with URI-like symptoms. He broke his arm couple weeks ago and shattered his left elbow. Hardware was placed in the elbow and he has been at PT. At PT he developed opening of the skin and dehiscence with some pus. He started keflex today for the elbow cellulitis/dehiscence. Denies fevers, chills, constipation, pleuritic chest pain , diarrhea, palpitations or diaphoresis. Denies alcohol, tobacco or illicit drug use. No sick contacts or recent travels. OBJECTIVE: Alert Vital Signs Period Temp Pulse Resp BP Sys/Peters Pulse Ox Last 24 Hr 98.8 F 93 18 138/86 97 HEENT: No Jaundice, eye redness or discharge, PERRLA, EOMI. Normocephalic, atraumatic. External ears are normal and hearing is grossly intact. No nasal discharge. Neck: Supple, nontender. No palpable adenopathy or thyromegaly. No JVD Chest: Good effort. Clear to auscultation and percussion. Heart: Regular. No S3, rub or murmur Abdomen: Not distended, soft, nontender and no HSM. No rebound or guarding. Normal bowel sounds. Ext: Peripheral pulses intact. No leg edema. Left elbow wound. Skin: Warm and dry. No petechiae, rash or ecchymosis. Neuro: Alert. Oriented x3. CN 2-12 grossly intact. Sensation grossly intact in all four extremities and DTR are symmetric. Psych: Appropriate mood and affect. Good insight. Home Medications Medication Instructions Recorded Finasteride [Proscar] 5 mg PO DAILY 12/15/17 Aspirin 81 mg PO DAILY 03/24/18 Atorvastatin Calcium 20 mg PO HS 03/24/18 Naproxen Sodium [Aleve] 2 tab PO ASDIR PRN 07/28/19 Potassium Citrate [Urocit-K] 15 meq PO BID 07/28/19 Abnormal Lab Results 08/29/19 23:30 WBC 10.3 H Absolute Neuts (auto) 8.2 H Lymphocytes % 6.7 L D ASSESSMENT AND PLAN: 1. Chest pain - Got SL Nitroglycerin, Mylanta and Pepcid in the ER. Flu swab, d- dimer and rapid Gp A Strept test pending. EKG shows NSR with inferior and anterior infarct of undetermined age. Initial troponin is negative. Will admit to telemetry to rule out ACS, get ECHO, continue ASA and consult cardiology. No acute abnormality on CXR. Leukocytosis likely due to stress or left elbow infection. Will give IV Ancef for left elbow wound infection. Continue IV NS. Will continue comprehensive care for all of patients comorbid conditions including Proscar for BPH. 2. DVT prophylaxis - Lovenox 40 mg SQ q 24 hours. 3. Advance directives - Full code
[2019-08-30 01:47] LABS: BILIRUBIN,TOTAL 0.4 mg/dL (0.2-1); BLOOD UREA NITROGEN 18.3 mg/dL (7-18); CALCIUM 9.6 mg/dL (8.5-10.1); CREATININE 1.3 mg/dL (0.55-1.3); MAGNESIUM 2.1 mg/dL (1.8-2.4); POTASSIUM 4.4 mmol/L (3.5-5.1); TOT PROT 7.5 g/dl (6.4-8.2)
[2019-08-30 01:55] LABS: URINE APPEARANCE CLEAR; URINE BILIRUBIN NEGATIVE (NEGATIVE); URINE COLOR YELLOW; URINE GLUCOSE (UA) NEGATIVE (NEGATIVE); URINE KETONE NEGATIVE (NEGATIVE); URINE LEUK ESTERASE NEGATIVE (NEGATIVE); URINE NITRITE NEGATIVE (NEGATIVE); URINE PROTEIN NEGATIVE (NEGATIVE); URINE UROBILINOGEN 0.2 mg/dL (0.2-1.0)
--- NOTE | 2019-08-30 02:29 | HP ---
CHIEF COMPLAINT: Atypical chest pain PCP: Trey Frederick HISTORY OF PRESENT ILLNESS: 63 y/o F, pmh of CAD s/p stenting x2 in 2014 at [place], on ASA, BPH, HLD, nephrolithiasis s/p lithotripsy, presented to the ED c/o of constant, localized , "tight" like epigastric pain of a few minute duration that began when he was dancing during an event. Pt states that he experienced the pain for a few minutes and thought that he was having an episode similar to when he had his VA. He did not take anything for the pain, instead rushed to the hospital. He also reports vomiting, shortness of breath, mild cough and sore throat. He had a stress test done after his stenting and it was normal. He had a recent ECHO and EKG in may 2019 done which was also normal. Denies f/headaches, changes in vision, dizziness, abdominal pain, numbness or tingling, back pain. ER course was notable for: (1)ASA, [place], pepcid, nitroglycerine (2)EKG shows NSR with inferior and anterior infarct of undetermined age. (3)Initial troponin is negative Recent Travel: denies PAST MEDICAL HISTORY: PCP: Trey frederick PSH: TURP, Stent, left inguinal hernia sx, lithotripsy Urologist - Dr. Bright Cards: Rashaad Jung in Past PAST SURGICAL HISTORY: nephrolithiasis s/p lithotripsy, TURP, left inguinal hernia, stenting Social History: Smoking: denies Alcohol: occasional Drugs: denies Allergies No Known Drug Allergies Allergy (Verified 08/29/19 22:56) HOME MEDICATIONS: Home Medications Medication Instructions Recorded Finasteride [Proscar] 5 mg PO DAILY 12/15/17 Aspirin 81 mg PO DAILY 03/24/18 Atorvastatin Calcium 20 mg PO HS 03/24/18 Naproxen Sodium [Aleve] 2 tab PO ASDIR PRN 07/28/19 Potassium Citrate [Urocit-K] 15 meq PO BID 07/28/19 REVIEW OF SYSTEMS CONSTITUTIONAL: Absent: fever, chills, diaphoresis, generalized weakness, malaise, HEENT: Absent: rhinorrhea, nasal congestion, throat pain, throat swelling, difficulty swallowing, CARDIOVASCULAR: Absent: chest pain, syncope, palpitations, irregular heart rate, RESPIRATORY: Admits: cough, shortness of breath, Absent: dyspnea with exertion, GASTROINTESTINAL: Absent: abdominal pain, abdominal distension, nausea, vomiting, diarrhea, GENITOURINARY: Absent: dysuria, frequency, urgency, hesitancy, hematuria, flank pain, genital pain MUSCULOSKELETAL: Absent: myalgia, arthralgia, joint swelling, back pain, neck pain PHYSICAL EXAMINATION Vital Signs - 24 hr 08/29/19 08/30/19 22:54 02:26 Temperature 98.8 F Pulse Rate 93 H Pulse Rate [ 78 Radial] Respiratory 18 18 Rate Blood Pressure 138/86 Blood Pressure 111/80 [Left Arm] O2 Sat by Pulse 97 100 Oximetry (%) GENERAL: Awake, alert, and fully oriented, in no acute distress. EYES: sclera anicteric, conjunctiva clear. No lid lag. QUEENIE, EOMI EARS, NOSE, THROAT: Moist mucous membranes. NECK: Normal range of motion, supple without lymphadenopathy, JVD, or masses. LUNGS: Breath sounds equal, clear to auscultation bilaterally. No wheezes, and crackles appreciated on the left lower lobe posteriorly. HEART: Regular rate and rhythm, normal S1 and S2 without murmur, rub or gallop. ABDOMEN: Soft, nontender, not distended, normoactive bowel sounds, no guarding, no rebound, no masses. MUSCULOSKELETAL: Normal range of motion at all joints. No bony deformities or tenderness. UPPER EXTREMITIES: 2+ pulses, warm, well-perfused. No cyanosis. No peripheral edema. LOWER EXTREMITIES: 2+ pulses, warm, well-perfused. No calf tenderness. No peripheral edema. NEUROLOGICAL: Normal speech. Normal gait. SKIN: Warm, dry, normal turgor, no rashes or lesions noted, Laboratory Results - last 24 hr CBC,CMP WBC 10.3 K/mm3 (4.0-10.0) H 08/29/19 23:30 RBC 5.27 M/mm3 (4.00-5.60) 08/29/19 23:30 Hgb 15.6 GM/dL (11.7-16.9) 08/29/19 23:30 Hct 46.7 % (35.4-49) 08/29/19 23:30 MCV 88.5 fl (80-96) 08/29/19 23:30 MCH 29.6 pg (25.7-33.7) 08/29/19 23:30 MCHC 33.4 g/dl (32.0-35.9) 08/29/19 23:30 RDW 15.0 % (11.9-15.9) 08/29/19 23:30 Plt Count 225 K/MM3 (134-434) 08/29/19 23:30 MPV 8.1 fl (7.5-11.1) 08/29/19 23:30 Absolute Neuts (auto) 8.2 K/mm3 (1.5-8.0) H 08/29/19 23:30 Neutrophils % 80.2 % (42.8-82.8) D 08/29/19 23:30 Lymphocytes % 6.7 % (8-40) L D 08/29/19 23:30 Monocytes % 9.3 % (3.8-10.2) 08/29/19 23:30 Eosinophils % 3.3 % (0-4.5) D 08/29/19 23:30 Basophils % 0.5 % (0-2.0) 08/29/19 23:30 Nucleated RBC % 0 % (0-0) 08/29/19 23:30 Sodium 143 mmol/L (136-145) 08/29/19 23:30 Potassium 4.4 mmol/L (3.5-5.1) 08/29/19 23:30 Chloride 104 mmol/L (98-107) 08/29/19 23:30 Carbon Dioxide 33 mmol/L (21-32) H 08/29/19 23:30 Anion Gap 6 MMOL/L (8-16) L 08/29/19 23:30 BUN 18.3 mg/dL (7-18) H 08/29/19 23:30 Creatinine 1.3 mg/dL (0.55-1.3) 08/29/19 23:30 Est GFR (CKD-EPI)AfAm 67.78 08/29/19 23:30 Est GFR (CKD-EPI)NonAf 58.48 08/29/19 23:30 Random Glucose 96 mg/dL (74-106) 08/29/19 23:30 Calcium 9.6 mg/dL (8.5-10.1) 08/29/19 23:30 Magnesium 2.1 mg/dL (1.8-2.4) 08/29/19 23:30 Total Bilirubin 0.4 mg/dL (0.2-1) 08/29/19 23:30 AST 29 U/L (15-37) 08/29/19 23:30 ALT 34 U/L (13-61) 08/29/19 23:30 Alkaline Phosphatase 81 U/L (45-117) 08/29/19 23:30 Creatine Kinase 294 U/L (26-308) 08/29/19 23:30 Creatine Kinase Index 0.8 % (0.0-5.0) 08/29/19 23:30 CK-MB (CK-2) 2.4 ng/mL (0.5-3.6) 08/29/19:30 Troponin I < 0.02 ng/ml (0.00-0.05) 08/29/19 23:30 B-Natriuretic Peptide 14.9 pg/ml (5-125) 08/29/19 23:30 Total Protein 7.5 g/dl (6.4-8.2) 08/29/19:30 Albumin 4.0 g/dl (3.4-5.0) 08/29/19 23:30 ASSESSMENT/PLAN: 63 y/o F, pmh of CAD s/p stenting x2 in 2014 at [place], on ASA, BPH, HLD, nephrolithiasis s/p lithotripsy, presented to the ED c/o of constant, localized , "tight" like epigastric pain of a few minute duration admitted for atypical chest pain #Atypical chest pain likely 2/2 indigestion vs GERD like symptoms vs Viral URI But due to hx of CAD and HEART score of 5, will need to r/o ACS EKG NSR with inferior and anterior infarct of undetermined age. 1st trop negative R/p Trop sent Flu swab sent Grp A strep test pending D- dimer pending cont ASA CXR- no abnormalities Pt likely dehydrated- IVF #Left elbow surgical site drainage s/p surgery Will give one dose Ancef 1gm #CAD cont ASA #BPH Proscar #HLD cnt Lipitor DVT ppx Hep TID sq FEN regular diet monitor lytes IVF at 50 Dispo: f/u labs, if pt remains asymptomatic can consider discharge, monitor on tele Visit type - Emergency Visit Emergency Visit: Yes ED Registration Date: 08/30/19 Care time: The patient presented to the Emergency Department on the above date and was hospitalized for further evaluation of their emergent condition. - New Patient This patient is new to me today: Yes Date on this admission: 09/02/19 - Critical Care Critical Care patient: No ATTENDING PHYSICIAN STATEMENT I saw and evaluated the patient. I reviewed the resident's note and discussed the case with the resident. I agree with the resident's findings and plan as documented. SUBJECTIVE: OBJECTIVE: ASSESSMENT AND PLAN:
[2019-08-30] MEDS ORDERED: SODIUM CHLORIDE 1,000 ML IV SCH (02:30)
[2019-08-30] MEDS ORDERED: CEFAZOLIN 1 GM/D5W 1 GM/50 ML BAG IVPB SCH (03:30)
[2019-08-30] MEDS ORDERED: CEFAZOLIN 1 GM/D5W 1 GM/50 ML BAG ONE (03:30)
[2019-08-30] MEDS ORDERED: HEPARIN NA (PORCINE) 5,000 UNITS/ML 1ML VIAL ONE (06:31)
[2019-08-30] MEDS: HEPARIN NA (PORCINE) 5,000 UNITS/ML 1ML VIAL SQ SCH ×3 (06:40→22:02)
[2019-08-30] MEDS: ASPIRIN 81 MG CHEWABLE TABLETS PO SCH (10:07)
--- NOTE | 2019-08-30 11:02 | EKG ---
Test Reason : Blood Pressure : / mmHG Vent. Rate : 096 BPM Atrial Rate : 096 BPM P-R Int : 146 ms QRS Dur : 090 ms QT Int : 340 ms P-R-T Axes : 071 -27 070 degrees QTc Int : 429 ms NORMAL SINUS RHYTHM INFERIOR INFARCT (CITED ON OR BEFORE 11-DEC-2016) ANTERIOR INFARCT (CITED ON OR BEFORE 25-MAR-2018) ABNORMAL ECG WHEN COMPARED WITH ECG OF 24-JUL-2019 19:27, VENT. RATE HAS INCREASED BY 44 BPM Confirmed by ALETHEA KAHN MD ([id number]) on 08/30/2019 11:01:41 AM Referred By: Confirmed By:ALETHEA KAHN MD
--- NOTE | 2019-08-30 12:32 | PN ---
Progress Note (short form) - Note Progress Note: Ortho consult dictated. Continue ABX for now. Can go home on PO keflex which was prescribed prior to admission. Will follow up with this week.
--- NOTE | 2019-08-30 15:45 | CON.ID ---
Consult - History of Present Illness History of Present Illness: 63 y.o. male with PMH of CAD s/p RI and stents x 2 in 2015, BPH s/p TURP, nephrolithiasis s/p lithotripsy and stent, HLD, and Lt elbow fracture s/p repair with hardware one month ago presents to the ER with c/o chest pain and SOB that began 1 hour prior to arrival. Pt was at a dance constitution party and states he was feeling well and was eating but developed the chest pain after he began dancing. He says he had to step out of the room to catch his breath and became extremely flushed and diaphoretic and had difficulty breathing especially while walking. Pt reports episode of vomiting at the time. He states he had similar symptoms when he had an RI in the past. He reports now that he is coughing and his chest hurts as a result. Denies rhinorrhea or significant sore throat. He denies any close sick contacts and has not traveled recently. 3 days ago he noticed his Lt elbow surgical site had opened up and noted oozing of small amount of clear fluid and mild edema as confirmed by his son at bedside. He had an Xray done which did not show any misalignment at the surgical site as per the pt and was given a prescription for keflex of which he took a dose yesterday. In the ER he has been afebrile, without acute distress, with stable vitals. CXR is without infiltrates and initial set of troponins are negative. Rapid influenza testing is negative as well. His D-dimer is elevated and results of CTA are pending. - History Source History Provided By: Patient - Past Medical History Cardio/Vascular: Yes: CAD, Hyperlipdemia Renal/: Yes: BPH, Renal Calculi Musculoskeletal: Yes: Other (Lt elbow shattered) - Past Surgical History Past Surgical History: Yes: Stent, TURP Additional Surgical History: Lt elbow fracture/hardware - Alcohol/Substance Use Hx Alcohol Use: No - Smoking History Smoking history: Never smoked Have you smoked in the past 12 months: No - Social History ADL: Independent History of Recent Travel: No Home Medications - Allergies Allergies/Adverse Reactions: Allergies Allergy/AdvReac Type Severity Reaction Status Date / Time No Known Drug Allergies Allergy Verified 08/29/19 22:56 - Home Medications Home Medications: Ambulatory Orders Finasteride [Proscar] 5 mg PO DAILY 12/15/17 Aspirin 81 mg PO DAILY 03/24/18 Atorvastatin Calcium 20 mg PO HS 03/24/18 Naproxen Sodium [Aleve] 2 tab PO ASDIR PRN 07/28/19 Potassium Citrate [Urocit-K] 15 meq PO BID 07/28/19 Review of Systems - Review of Systems Constitutional: reports: No Symptoms. denies: Chills, Diaphoresis, Fever, Lethargy, Loss of Appetite, Malaise, Night Sweats, Unintentional Wgt. Loss, Weakness, Other Eyes: reports: No Symptoms. denies: Blind Spots, Blurred Vision, Double Vision , Eye Pain, Floaters, Photophobia, Recent Change in Vision, Other HENT: reports: No Symptoms. denies: Difficult Swallowing, Ear Discharge, Ear Pain, Epistaxis, Gingival Bleeding, Hearing Loss, Mouth Swelling, Nasal Congestion, Ocular Prosthesis, Throat Pain, Toothache, Ringing in Ears, Other Neck: reports: No Symptoms. denies: Decreased ROM, Lumps, Pain on Movement, Stiffness, Swollen Glands, Tenderness, Other Cardiovascular: reports: Chest Pain Respiratory: reports: Cough, SOB Gastrointestinal: reports: No Symptoms. denies: Abdominal Pain, Bloating, Constipation, Diarrhea, Dysphagia, Indigestion, Melena, Nausea, Rectal Bleeding , Vomiting, Vomiting Blood, Other Genitourinary: reports: No Symptoms. denies: Burning, Discharge, Dysuria, Flank Pain, Frequency, Hematuria, Incontinence, Lesions, Menses, Pain, Testicular Mass, Testicular Pain, Testicular Swelling, Urgency, Vaginal Bleeding , Other Musculoskeletal: reports: Other (Lt arm surgical site open wound). denies: No Symptoms, Back Pain, Crepitus, Decreased ROM, Extremity Pain, Joint Pain, Joint Swelling, Muscle Pain, Muscle Cramps, Muscle Weakness Integumentary: reports: No Symptoms. denies: Blister, Bruising, Change in Color , Eczema, Erythema, Incision, Lesions, Lump, Pallor, Pruritis, Rash, Wound, Other Neurological: reports: No Symptoms. denies: Change in LOC, Change in Speech, Confusion, Dizziness, Headache, Incoordination, Numbness, Parasthesia, Pre- Existing Deficit, Seizure, Syncope, Tremors, Unsteady Gait, Weakness, Other Endocrine: denies: No Symptoms, Excessive Sweating, Flushing, Increased Hunger, Increased Thirst, Intolerance to Cold, Intolerance to Heat, Unexplained Weight Gain, Unexplained Weight Loss, Other Hematology/Lymphatic: denies: No Symptoms, Easily Bruised, Excessive Bleeding, Swollen Glands, Other Psychiatric: denies: No Symptoms, Altered Sleep Pattern, Anxiety, Depression, Hallucinations, Panic, Paranoia, Suicidal, Other Physical Exam Vital Signs: Vital Signs Temperature 98.9 F 08/30/19 08:28 Pulse Rate 84 08/30/19 08:28 Respiratory Rate 17 08/30/19 08:28 Blood Pressure 118/81 08/30/19 08:28 O2 Sat by Pulse Oximetry (%) 97 08/30/19 08:28 Constitutional: Yes: Well Nourished, No Distress, Calm Eyes: Yes: Conjunctiva Clear, EOM Intact HENT: Yes: Atraumatic, Normocephalic Neck: Yes: Supple, Trachea Midline Cardiovascular: Yes: Regular Rate and Rhythm Respiratory: Yes: CTA Bilaterally Gastrointestinal: Yes: Normal Bowel Sounds, Soft Musculoskeletal: Yes: WNL Extremities: Yes: WNL Edema: No Integumentary: Yes: WNL Wound/Incision: Yes: Other (Lt elbow wound dehiscence, mild erythema, minimal drainage noted on gauze (dressing recently changed), no pus/necrosis/induration/ tenderness) Psychiatric: Yes: Alert Labs: CBC, BMP 08/29/19 23:30 08/29/19 23:30 Laboratory Tests 08/29/19 08/29/19 08/29/19 23:30 23:30 23:30 WBC 10.3 H RBC 5.27 Hgb 15.6 Hct 46.7 MCV 88.5 MCH 29.6 MCHC 33.4 RDW 15.0 Plt Count 225 MPV 8.1 Absolute Neuts (auto) 8.2 H Neutrophils % 80.2 D Lymphocytes % 6.7 L D Monocytes % 9.3 Eosinophils % 3.3 D Basophils % 0.5 Nucleated RBC % 0 PT with INR 12.90 INR 1.09 PTT (Actin FS) 34.0 D-Dimer Sodium Potassium Chloride Carbon Dioxide Anion Gap BUN Creatinine Est GFR (CKD-EPI)AfAm Est GFR (CKD-EPI)NonAf Random Glucose Calcium Magnesium Total Bilirubin AST ALT Alkaline Phosphatase Creatine Kinase 294 Creatine Kinase Index 0.8 CK-MB (CK-2) 2.4 Troponin I < 0.02 B-Natriuretic Peptide 14.9 Total Protein Albumin Urine Color Urine Appearance Urine pH Ur Specific [place] Urine Protein Urine Glucose (UA) Urine Ketones Urine Blood Urine Nitrite Urine Bilirubin Urine Urobilinogen Ur Leukocyte Esterase Influenza A (Rapid) Influenza B (Rapid) Group A Strep Rapid 08/29/19 08/30/19 08/30/19 23:30 00:00 01:20 WBC RBC Hgb Hct MCV MCH MCHC RDW Plt Count MPV Absolute Neuts (auto) Neutrophils % Lymphocytes % Monocytes % Eosinophils % Basophils % Nucleated RBC % PT with INR INR PTT (Actin FS) D-Dimer Sodium 143 Potassium 4.4 Chloride 104 Carbon Dioxide 33 H Anion Gap 6 L BUN 18.3 H Creatinine 1.3 Est GFR (CKD-EPI)AfAm 67.78 Est GFR (CKD-EPI)NonAf 58.48 Random Glucose 96 Calcium 9.6 Magnesium 2.1 Total Bilirubin 0.4 AST 29 ALT 34 Alkaline Phosphatase 81 Creatine Kinase Creatine Kinase Index CK-MB (CK-2) Troponin I B-Natriuretic Peptide Total Protein 7.5 Albumin 4.0 Urine Color Yellow Urine Appearance Clear Urine pH 8.0 D Ur Specific [place] 1.005 L Urine Protein Negative Urine Glucose (UA) Negative Urine Ketones Negative Urine Blood Negative Urine Nitrite Negative Urine Bilirubin Negative Urine Urobilinogen 0.2 Ur Leukocyte Esterase Negative Influenza A (Rapid) Influenza B (Rapid) Group A Strep Rapid Negative 08/30/19 08/30/19 08/30/19 01:20 02:30 02:45 WBC RBC Hgb Hct MCV MCH MCHC RDW Plt Count MPV Absolute Neuts (auto) Neutrophils % Lymphocytes % Monocytes % Eosinophils % Basophils % Nucleated RBC % PT with INR INR PTT (Actin FS) D-Dimer 858 H Sodium Potassium Chloride Carbon Dioxide Anion Gap BUN Creatinine Est GFR (CKD-EPI)AfAm Est GFR (CKD-EPI)NonAf Random Glucose Calcium Magnesium Total Bilirubin AST ALT Alkaline Phosphatase Creatine Kinase Creatine Kinase Index CK-MB (CK-2) Troponin I < 0.02 B-Natriuretic Peptide Total Protein Albumin Urine Color Urine Appearance Urine pH Ur Specific [place] Urine Protein Urine Glucose (UA) Urine Ketones Urine Blood Urine Nitrite Urine Bilirubin Urine Urobilinogen Ur Leukocyte Esterase Influenza A (Rapid) Negative Influenza B (Rapid) Negative Group A Strep Rapid 08/30/19 12:57 WBC RBC Hgb Hct MCV MCH MCHC RDW Plt Count MPV Absolute Neuts (auto) Neutrophils % Lymphocytes % Monocytes % Eosinophils % Basophils % Nucleated RBC % PT with INR INR PTT (Actin FS) D-Dimer Sodium Potassium Chloride Carbon Dioxide Anion Gap BUN Creatinine Est GFR (CKD-EPI)AfAm Est GFR (CKD-EPI)NonAf Random Glucose Calcium Magnesium Total Bilirubin AST ALT Alkaline Phosphatase Creatine Kinase Creatine Kinase Index CK-MB (CK-2) Troponin I 0.04 B-Natriuretic Peptide Total Protein Albumin Urine Color Urine Appearance Urine pH Ur Specific [place] Urine Protein Urine Glucose (UA) Urine Ketones Urine Blood Urine Nitrite Urine Bilirubin Urine Urobilinogen Ur Leukocyte Esterase Influenza A (Rapid) Influenza B (Rapid) Group A Strep Rapid Imaging - Results Chest X-ray: Report Reviewed Cat Scan: Pending Problem List - Problems (1) Chest pain Code(s): R07.9 - CHEST PAIN, UNSPECIFIED Qualifiers: Chest pain type: unspecified Qualified Code(s): R07.9 - Chest pain, unspecified (2) Elbow fracture, left Code(s): S42.402A - UNSP FRACTURE OF LOWER END OF LEFT HUMERUS, INIT FOR CLOS FX Qualifiers: Encounter type: initial encounter Fracture type: closed Qualified Code(s) : S42.402A - Unspecified fracture of lower end of left humerus, initial encounter for closed fracture (3) S/P TURP Code(s): Z90.79 - ACQUIRED ABSENCE OF OTHER GENITAL ORGAN(S) Assessment/Plan 63 y.o. male with PMH of CAD s/p RI and stents x 2 in 2014, BPH s/p TURP, nephrolithiasis s/p lithotripsy and stent, HLD, and Lt elbow fracture s/p repair with hardware one month ago presents to the ER with c/o chest pain and SOB that began 1 hour prior to arrival. Lt elbow wound dehiscence noted with mild drainage/erythema. Lt elbow surgical site dehiscence/possible infection CP SOB/Cough CAD s/p RI BPH -- For now will switch to Vancomycin, monitor renal function and drug level -- Will check esr, crp, blood cultures -- Orthopedics to follow -- F/U results of CTA -- CXR neg, Influenza/Strep rapid negative -- Pt is afebrile, without significantly elevated wbc -- Will Follow Thank you
--- NOTE | 2019-08-30 16:13 | CONS ---
DATE OF CONSULTATION: 08/30/2019 HISTORY OF PRESENT ILLNESS: This is a 63-year-old gentleman who had contacted the office yesterday due to some drainage from his elbow wound. The patient subsequently went to a social event and had chest pain and so was admitted to rule out ACS. On admission, he was noted to have some drainage from the wound. He was given a dose of antibiotics. No cultures were taken. He denies any fever or chills. PHYSICAL EXAMINATION: This is a well-appearing male in no acute distress. He is alert and oriented x3. He is seen lying on the hospital stretcher. Examination of the left upper extremity demonstrates a surgical wound with some mild dehiscence at the proximal pole with a gap of approximately 4 mm. There is no active drainage. There was no drainage expressed on compression of the wound. There is some serosanguineous drainage noted on the previous dressing but only spotting. He has comfortable range of motion of the elbow. There is mild erythema. He does have moderate limitation to range of motion; however, this is not to be unexpected given his recent surgery. Distally, he has sensation intact to light touch. 2+ radial pulse. Distal motor 5/5. Lab studies are reviewed, demonstrating a white count of 10.3. ASSESSMENT: Left elbow wound infection. PLAN: I discussed today's findings with the patient. At this time, we will keep him on antibiotics as were started as an outpatient. We will observe his response to the antibiotics. I discussed that if the bacteria have penetrated to the level of the plate, he will likely need the hardware out at some time, but it is not clear of that has happened at this point. This may be more of a superficial process, which would resolve with antibiotics alone. On discharge, he will follow up with Dr. Lund in the office this week for a wound check. JUAN C VERONICA M.D. CARMEN/[id number]
[2019-08-30] MEDS ORDERED: VANCOMYCIN 1 GRAM (PRE-DOCKED) 1,000 MG/250 ML BAG IVPB ONE (17:07)
[2019-08-30 18:00] VITALS: BMI 26.4
[2019-08-30] MEDS: VANCOMYCIN 1 GRAM (PRE-DOCKED) 1,000 MG/250 ML BAG IVPB SCH (18:08)
[2019-08-30] MEDS: ACETAMINOPHEN 325 MG TABLET (FP) PO PRN ×2 (18:09→23:52)
--- NOTE | 2019-08-30 18:14 | PN ---
Progress Note (short form) - Note Progress Note: SUBJECTIVE: CP resolved, L elbow pain with surgical site discharge. No fever at time of interview, subsequently became febrile. No nausea/vomiting. OBJECTIVE: Febrile, Hemodynamically Stable. Last Vital Signs Temp Pulse Resp BP Pulse Ox 102 F H 74 17 132/83 97 08/30/19 17:53 08/30/19 17:53 08/30/19 17:53 08/30/19 17:53 08/30/19 17:16 HEENT - Atraumatic, Normocephalic. Heart - S1, S2, RRR Lungs - clear to auscultation Abdomen - soft, non-tender. Bowel Sounds normal. Extremities - L elbow surgical site dehiscence with erythema and pustular discharge Neuro - AAO x 3. Tone/Power normal all extremities. Laboratory Results - last 24 hr 08/29/19 08/29/19 08/29/19 23:30 23:30 23:30 WBC 10.3 H RBC 5.27 Hgb 15.6 Hct 46.7 MCV 88.5 MCH 29.6 MCHC 33.4 RDW 15.0 Plt Count 225 MPV 8.1 Absolute Neuts (auto) 8.2 H Neutrophils % 80.2 D Lymphocytes % 6.7 L D Monocytes % 9.3 Eosinophils % 3.3 D Basophils % 0.5 Nucleated RBC % 0 PT with INR 12.90 INR 1.09 PTT (Actin FS) 34.0 D-Dimer Sodium Potassium Chloride Carbon Dioxide Anion Gap BUN Creatinine Est GFR (CKD-EPI)AfAm Est GFR (CKD-EPI)NonAf Random Glucose Calcium Magnesium Total Bilirubin AST ALT Alkaline Phosphatase Creatine Kinase 294 Creatine Kinase Index 0.8 CK-MB (CK-2) 2.4 Troponin I < 0.02 B-Natriuretic Peptide 14.9 Total Protein Albumin Urine Color Urine Appearance Urine pH Ur Specific [place] Urine Protein Urine Glucose (UA) Urine Ketones Urine Blood Urine Nitrite Urine Bilirubin Urine Urobilinogen Ur Leukocyte Esterase Influenza A (Rapid) Influenza B (Rapid) Group A Strep Rapid 08/29/19 08/30/19 08/30/19 23:30 00:00 01:20 WBC RBC Hgb Hct MCV MCH MCHC RDW Plt Count MPV Absolute Neuts (auto) Neutrophils % Lymphocytes % Monocytes % Eosinophils % Basophils % Nucleated RBC % PT with INR INR PTT (Actin FS) D-Dimer Sodium 143 Potassium 4.4 Chloride 104 Carbon Dioxide 33 H Anion Gap 6 L BUN 18.3 H Creatinine 1.3 Est GFR (CKD-EPI)AfAm 67.78 Est GFR (CKD-EPI)NonAf 58.48 Random Glucose 96 Calcium 9.6 Magnesium 2.1 Total Bilirubin 0.4 AST 29 ALT 34 Alkaline Phosphatase 81 Creatine Kinase Creatine Kinase Index CK-MB (CK-2) Troponin I B-Natriuretic Peptide Total Protein 7.5 Albumin 4.0 Urine Color Yellow Urine Appearance Clear Urine pH 8.0 D Ur Specific [place] 1.005 L Urine Protein Negative Urine Glucose (UA) Negative Urine Ketones Negative Urine Blood Negative Urine Nitrite Negative Urine Bilirubin Negative Urine Urobilinogen 0.2 Ur Leukocyte Esterase Negative Influenza A (Rapid) Influenza B (Rapid) Group A Strep Rapid Negative 08/30/19 08/30/19 08/30/19 01:20 02:30 02:45 WBC RBC Hgb Hct MCV MCH MCHC RDW Plt Count MPV Absolute Neuts (auto) Neutrophils % Lymphocytes % Monocytes % Eosinophils % Basophils % Nucleated RBC % PT with INR INR PTT (Actin FS) D-Dimer 858 H Sodium Potassium Chloride Carbon Dioxide Anion Gap BUN Creatinine Est GFR (CKD-EPI)AfAm Est GFR (CKD-EPI)NonAf Random Glucose Calcium Magnesium Total Bilirubin AST ALT Alkaline Phosphatase Creatine Kinase Creatine Kinase Index CK-MB (CK-2) Troponin I < 0.02 B-Natriuretic Peptide Total Protein Albumin Urine Color Urine Appearance Urine pH Ur Specific [place] Urine Protein Urine Glucose (UA) Urine Ketones Urine Blood Urine Nitrite Urine Bilirubin Urine Urobilinogen Ur Leukocyte Esterase Influenza A (Rapid) Negative Influenza B (Rapid) Negative Group A Strep Rapid 08/30/19 12:57 WBC RBC Hgb Hct MCV MCH MCHC RDW Plt Count MPV Absolute Neuts (auto) Neutrophils % Lymphocytes % Monocytes % Eosinophils % Basophils % Nucleated RBC % PT with INR INR PTT (Actin FS) D-Dimer Sodium Potassium Chloride Carbon Dioxide Anion Gap BUN Creatinine Est GFR (CKD-EPI)AfAm Est GFR (CKD-EPI)NonAf Random Glucose Calcium Magnesium Total Bilirubin AST ALT Alkaline Phosphatase Creatine Kinase Creatine Kinase Index CK-MB (CK-2) Troponin I 0.04 B-Natriuretic Peptide Total Protein Albumin Urine Color Urine Appearance Urine pH Ur Specific [place] Urine Protein Urine Glucose (UA) Urine Ketones Urine Blood Urine Nitrite Urine Bilirubin Urine Urobilinogen Ur Leukocyte Esterase Influenza A (Rapid) Influenza B (Rapid) Group A Strep Rapid Current Medications Generic Name Dose Route Start Last Admin Trade Name Freq PRN Reason Stop Dose Admin Acetaminophen 650 mg 08/30/19 18:02 Tylenol - PO Q4H PRN FEVER Aspirin 81 mg 08/30/19 10:00 08/30/19 10:07 Asa - PO 81 mg DAILY BRENDA Administration Atorvastatin Calcium 20 mg 08/30/19 22:00 Lipitor - PO HS BRENDA Heparin Sodium (Porcine) 5,000 unit 08/30/19 06:00 08/30/19 14:06 Heparin - SQ 5,000 unit TID BRENDA Administration Sodium Chloride 1,000 mls @ 50 mls/hr 08/30/19 02:30 08/30/19 02:35 Normal Saline - IV 08/31/19 02:24 50 mls/hr ASDIR BRENDA Administration Vancomycin HCl 1,000 mg in 250 mls @ 166.667 mls/hr 08/30/19 17:00 Vancomycin (Pre-Docked) IVPB BID@0500,1700 [facility] Home Medications Medication Instructions Recorded Finasteride [Proscar] 5 mg PO DAILY 12/15/17 Aspirin 81 mg PO DAILY 03/24/18 Atorvastatin Calcium 20 mg PO HS 03/24/18 Naproxen Sodium [Aleve] 2 tab PO ASDIR PRN 07/28/19 Potassium Citrate [Urocit-K] 15 meq PO BID 07/28/19 ASSESSMENT/PLAN 63 year old male with CAD s/p PCI/Stent x 2 at [facility], HLD, BPH, Nephrolithiasis s/p lithotripsy, HLD, s/p ORIF to L elbow s/p recent fracture prox ulnar and radial head, presented to the ED complaining of central "tight" chest/epigastric pain with associated SOB, onset while dancing. He also has several day history of opening of L elbow wound with erythema/tenderness, and pustular discharge. 1. 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 Tmax 102. Will send Blood and Wound Cx Seen by ID - empiric Vanco pending wound Cx. Will add Unasyn. Tylenol PRN for fever. 2. Atypical CP with background hx of CAD s/p PCI/Stent ECG - no acute changes TropI neg x 3 No telemonitoring events Elevated DDIMER - awaiting official CTA chest radiology read Cardiology eval. Continue Aspirin/Statin 3. BPH - continue Proscar. 4. HLD - Continue Statin. DVT Px - Heparin SQ. Visit type - Emergency Visit Emergency Visit: Yes ED Registration Date: 08/30/19 Care time: The patient presented to the Emergency Department on the above date and was hospitalized for further evaluation of their emergent condition. - New Patient This patient is new to me today: Yes Date on this admission: 08/30/19 - Critical Care Critical Care patient: No - Discharge Referral [facility]erred to [facility] Med P.C.: No
[2019-08-30] MEDS ORDERED: PT OWN MED DRAWER 7, Y5N ONE (21:41)
[2019-08-30] MEDS: AMPICILLIN NA/SULBACTAM NA 3 GM in SODIUM CHLORIDE 100 ML IVPB SCH (22:01)
[2019-08-30] MEDS: ATORVASTATIN CA 20 MG TABLET (FP) PO SCH (22:04)
[2019-08-31] MEDS ORDERED: PT OWN MED DRAWER 7, Y5N ONE ×5 (01:58→20:55)
[2019-08-31] MEDS: AMPICILLIN NA/SULBACTAM NA 3 GM in SODIUM CHLORIDE 100 ML IVPB SCH ×4 (02:05→21:10)
[2019-08-31] MEDS: VANCOMYCIN 1 GRAM (PRE-DOCKED) 1,000 MG/250 ML BAG IVPB SCH ×2 (05:34→17:55)
[2019-08-31] MEDS: HEPARIN NA (PORCINE) 5,000 UNITS/ML 1ML VIAL SQ SCH ×3 (05:34→21:09)
[2019-08-31 07:05] LABS: BASO % 0.3 % (0-2.0); HEMATOCRIT 43.2 % (35.4-49); HEMOGLOBIN 14.7 GM/dL (11.7-16.9); LYMPH % 8.6 % (8-40); MCH 29.9 pg (25.7-33.7); MEAN CELL VOLUME 87.9 fl (80-96); MEAN PLT VOLUME 8.1 fl (7.5-11.1); MONO % 13.5 % (3.8-10.2); NEUT % 76.6 % (42.8-82.8); PLATELET COUNT 163 K/MM3 (134-434); RBC 4.91 M/mm3 (4.00-5.60); RDW 14.9 % (11.9-15.9); WHITE BLOOD COUNT 6.3 K/mm3 (4.0-10.0)
[2019-08-31 07:13] LABS: ALBUMIN 3.4 g/dl (3.4-5.0); BILIRUBIN,TOTAL 0.3 mg/dL (0.2-1); CALCIUM 8.5 mg/dL (8.5-10.1); POTASSIUM 3.9 mmol/L (3.5-5.1); TOT PROT 6.4 g/dl (6.4-8.2)
[2019-08-31] MEDS: ACETAMINOPHEN 325 MG TABLET (FP) PO PRN ×2 (08:47→17:55)
[2019-08-31] MEDS: ASPIRIN 81 MG CHEWABLE TABLETS PO SCH (09:06)
--- NOTE | 2019-08-31 11:27 | CON.CARD ---
Consult Consult Specialty:: Cardiology Referred by:: Anisa Diaz Reason for Consultation:: Chest pain - History of Present Illness Chief Complaint: fever, nausea, body aches History of Present Illness: 63 year old male with a pmhx of bph, hld, nephrolithiasis s/p lithotripsy, and CAD s/p inferolateral STEMI 2016 s/p stenting x2 at [facility] and follows with Jorge Patel of [facility] who presents with feeling warm, epigastric pain, and nausea. Was dancing at an event and felt very warm and this was followed by epigastric pain and nausea. No significant chest pain. Developed a fever here to 102.6. +cough. +body aches. EKG: sinus rhythm with inferior infarct and poor R wave progression. - History Source History Provided By: Patient, Medical Record - Past Medical History Cardio/Vascular: Yes: CAD, Hyperlipdemia Renal/: Yes: BPH, Renal Calculi Musculoskeletal: Yes: Other (Lt elbow shattered) - Past Surgical History Past Surgical History: Yes: Stent, TURP Additional Surgical History: Lt elbow fracture/hardware - Alcohol/Substance Use Hx Alcohol Use: No - Smoking History Smoking history: Never smoked Have you smoked in the past 12 months: No - Social History ADL: Independent History of Recent Travel: No Home Medications - Allergies Allergies/Adverse Reactions: Allergies Allergy/AdvReac Type Severity Reaction Status Date / Time No Known Drug Allergies Allergy Verified 08/29/19 22:56 - Home Medications Home Medications: Ambulatory Orders Finasteride [Proscar] 5 mg PO DAILY 12/15/17 Aspirin 81 mg PO DAILY 03/24/18 Atorvastatin Calcium 20 mg PO HS 03/24/18 Naproxen Sodium [Aleve] 2 tab PO ASDIR PRN 07/28/19 Potassium Citrate [Urocit-K] 15 meq PO BID 07/28/19 Vital Signs: Vital Signs Temperature 102.6 F H 08/31/19 09:00 Pulse Rate 87 08/31/19 09:00 Respiratory Rate 22 H 08/31/19 09:00 Blood Pressure 126/82 08/31/19 09:00 O2 Sat by Pulse Oximetry (%) 97 08/31/19 09:00 Constitutional: Yes: No Distress Neck: Yes: Supple Respiratory: Yes: CTA Bilaterally Gastrointestinal: Yes: Soft Cardiovascular: Yes: Regular Rate and Rhythm JVD: No Carotid Bruit: No Heart Sounds: Yes: S1, S2 Murmur: No: Systolic Murmur Edema: No (+swelling/warm L elbow) - Other Data Labs, Other Data: CBC, BMP 08/31/19 05:10 08/31/19 05:10 INR, PTT INR 1.09 (0.83-1.09) 08/29/19 23:30 Troponin, BNP 08/30/19 08/31/19 12:57 05:10 Troponin I 0.04 0.03 Troponin, BNP 08/30/19 08/31/19 12:57 05:10 Troponin I 0.04 0.03 Imaging - Results EKG: Image Reviewed Problem List - Problems (1) Chest pain Code(s): R07.9 - CHEST PAIN, UNSPECIFIED Qualifiers: Chest pain type: unspecified Qualified Code(s): R07.9 - Chest pain, unspecified Assessment/Plan 63 year old male with a pmhx of bph, hld, nephrolithiasis s/p lithotripsy, and CAD s/p inferolateral STEMI 2016 s/p stenting x2 at [facility] and follows with Jorge Patel of [facility] who presents with feeling warm, epigastric pain, and nausea. Was dancing at an event and felt very warm and this was followed by epigastric pain and nausea. No significant chest pain. Developed a fever here to 102.6. +cough. +body aches. EKG: sinus rhythm with inferior infarct and poor R wave progression. 1) CAD -aspirin/statin Not on beta janak as outpatient and bp well controlled NO acute ischemia on ekg. Symptoms were atypical and more concerning for infectious process possibly sepsis. Abx as per primary team. Bld Cx's and wound Cx's of elbow. ID follow up for left elbow (has hardware) -If blood Cx's positive than echocardiogram -No further cardiac intervention at this time.
--- NOTE | 2019-08-31 12:04 | PN ---
Physical Exam: SUBJECTIVE: Patient seen and examined at bedside this AM. No acute events. OBJECTIVE: Vital Signs Period Temp Pulse Resp BP Sys/Peters Pulse Ox Last 24 Hr 100 F-102.6 F 69-94 17-22 112-144/63-83 96-97 GENERAL: The patient is awake, alert, and fully oriented, in no acute distress. NECK: supple. LUNGS: Breath sounds equal, clear to auscultation bilaterally, no wheezes, no crackles, no accessory muscle use. HEART: Regular rate and rhythm, S1, S2 without murmur, rub or gallop. ABDOMEN: Soft, nontender, nondistended, normoactive bowel sounds. EXTREMITIES: 2+ pulses, warm, well-perfused, no edema. Lt elbow warm to touch but not erythematous, minimal d/c from elbow, swollen. NEUROLOGICAL: Cranial nerves II through XII grossly intact. Normal speech, gait not observed. SKIN: Warm, dry, normal turgor, no rashes or lesions noted Laboratory Results - last 24 hr 08/30/19 08/31/19 08/31/19 12:57 05:10 05:10 WBC 6.3 RBC 4.91 Hgb 14.7 Hct 43.2 MCV 87.9 MCH 29.9 MCHC 34.0 RDW 14.9 Plt Count 163 D MPV 8.1 Absolute Neuts (auto) 4.9 Neutrophils % 76.6 Lymphocytes % 8.6 D Monocytes % 13.5 H Eosinophils % 1.0 Basophils % 0.3 Nucleated RBC % 0 ESR Sodium 140 Potassium 3.9 Chloride 106 Carbon Dioxide 28 Anion Gap 7 L BUN 14.0 Creatinine 1.0 Est GFR (CKD-EPI)AfAm 93.08 Est GFR (CKD-EPI)NonAf 80.31 Random Glucose 105 Calcium 8.5 Total Bilirubin 0.3 AST 23 ALT 31 Alkaline Phosphatase 71 Troponin I 0.04 0.03 C-Reactive Protein Total Protein 6.4 Albumin 3.4 08/31/19 08/31/19 05:10 05:10 WBC RBC Hgb Hct MCV MCH MCHC RDW Plt Count MPV Absolute Neuts (auto) Neutrophils % Lymphocytes % Monocytes % Eosinophils % Basophils % Nucleated RBC % ESR 2 Sodium Potassium Chloride Carbon Dioxide Anion Gap BUN Creatinine Est GFR (CKD-EPI)AfAm Est GFR (CKD-EPI)NonAf Random Glucose Calcium Total Bilirubin AST ALT Alkaline Phosphatase Troponin I C-Reactive Protein 2.3 H Total Protein Albumin Active Medications Generic Name Dose Route Start Last Admin Trade Name Freq PRN Reason Stop Dose Admin Acetaminophen 650 mg 08/30/19 18:02 08/31/19 08:47 Tylenol - PO 650 mg Q4H PRN Administration FEVER Aspirin 81 mg 08/30/19 10:00 08/31/19 09:06 Asa - PO 81 mg DAILY BRENDA Administration Atorvastatin Calcium 20 mg 08/30/19 22:00 08/30/19 22:04 Lipitor - PO 20 mg HS BRENDA Administration Heparin Sodium (Porcine) 5,000 unit 08/30/19 06:00 08/31/19 05:34 Heparin - SQ Not Given TID BRENDA Vancomycin HCl 1,000 mg in 250 mls @ 166.667 mls/hr 08/30/19 17:00 08/31/19 05:34 Vancomycin (Pre-Docked) IVPB 166.667 mls/hr BID@0500,1700 BRENDA Administration Ampicillin Sodium/Sulbactam 100 mls @ 200 mls/hr 08/30/19 21:00 08/31/19 08: 47 Sodium 3 gm/ Sodium Chloride IVPB 200 mls/hr Q6H-IV BRENDA Administration ASSESSMENT/PLAN: 63 y/o F, pmh of CAD s/p stenting x2 in 2014 at [facility], on ASA, BPH, HLD, nephrolithiasis s/p lithotripsy, presented to the ED c/o of constant, localized , "tight" like epigastric pain of a few minute duration admitted for atypical chest pain. #Atypical chest pain likely in setting of septic joint likely 2/2 indigestion vs GERD like symptoms vs Viral URI EKG NSR with inferior and anterior infarct of undetermined age. trop's negative , d dimer elevated so CTA done and was negative - ACS ruled out Flu swab rpt sent after initial one negative due to pt c/o stiff and achy muscles with fever and chills X 1 day. cont ASA, statin, pt not on BB and BP controlled. CXR- no abnormalities Pt likely dehydrated- IVF started NS 75cc/hr #Left elbow surgical site drainage - s/p surgery - Hardware in situ ? infected ?septic joint - Tmax 102 - ortho will come and reassess pt given new fever - pt on unasyn and vanco - ID consulted will continue abx. #CAD cont ASA statin #BPH Proscar #HLD cnt Lipitor DVT ppx Hep TID sq FEN regular diet monitor lytes IVF at 50 Dispo: f/u labs, if pt remains asymptomatic can consider discharge, monitor on tele Visit type - Emergency Visit Emergency Visit: Yes ED Registration Date: 08/30/19 Care time: The patient presented to the Emergency Department on the above date and was hospitalized for further evaluation of their emergent condition. - New Patient This patient is new to me today: Yes Date on this admission: 08/31/19 - Critical Care Critical Care patient: No - Discharge Referral Referred to [facility] Med P.C.: No ATTENDING PHYSICIAN STATEMENT I saw and evaluated the patient. I reviewed the resident's note and discussed the case with the resident. I agree with the resident's findings and plan as documented. SUBJECTIVE: OBJECTIVE: ASSESSMENT AND PLAN:
--- NOTE | 2019-08-31 12:05 | PN ---
Teaching Attending Note Name of Resident: Tariq Bright ATTENDING PHYSICIAN STATEMENT I saw and evaluated the patient. I reviewed the resident's note and discussed the case with the resident. I agree with the resident's findings and plan as documented. SUBJECTIVE: Fever, sweats, chills. CP resolved, L elbow pain with surgical site discharge. No nausea/vomiting. Reports cough+ OBJECTIVE: Febrile, Tmax 102.6, Hemodynamically Stable. Last Vital Signs Temp Pulse Resp BP Pulse Ox 102.6 F H 87 22 H 126/82 97 08/31/19 09:00 08/31/19 09:00 08/31/19 09:00 08/31/19 09:00 08/31/19 09:00 Heart - S1, S2, RRR Lungs - clear to auscultation Abdomen - soft, non-tender. Bowel Sounds normal. Extremities - L elbow surgical site dehiscence with erythema and pustular discharge. No decrease in ROM about elbow. Neuro - AAO x 3. Tone/Power normal all extremities. Laboratory Results - last 24 hr 08/30/19 08/31/19 08/31/19 12:57 05:10 05:10 WBC 6.3 RBC 4.91 Hgb 14.7 Hct 43.2 MCV 87.9 MCH 29.9 MCHC 34.0 RDW 14.9 Plt Count 163 D MPV 8.1 Absolute Neuts (auto) 4.9 Neutrophils % 76.6 Lymphocytes % 8.6 D Monocytes % 13.5 H Eosinophils % 1.0 Basophils % 0.3 Nucleated RBC % 0 ESR Sodium 140 Potassium 3.9 Chloride 106 Carbon Dioxide 28 Anion Gap 7 L BUN 14.0 Creatinine 1.0 Est GFR (CKD-EPI)AfAm 93.08 Est GFR (CKD-EPI)NonAf 80.31 Random Glucose 105 Calcium 8.5 Total Bilirubin 0.3 AST 23 ALT 31 Alkaline Phosphatase 71 Troponin I 0.04 0.03 C-Reactive Protein Total Protein 6.4 Albumin 3.4 08/31/19 08/31/19 05:10 05:10 WBC RBC Hgb Hct MCV MCH MCHC RDW Plt Count MPV Absolute Neuts (auto) Neutrophils % Lymphocytes % Monocytes % Eosinophils % Basophils % Nucleated RBC % ESR 2 Sodium Potassium Chloride Carbon Dioxide Anion Gap BUN Creatinine Est GFR (CKD-EPI)AfAm Est GFR (CKD-EPI)NonAf Random Glucose Calcium Total Bilirubin AST ALT Alkaline Phosphatase Troponin I C-Reactive Protein 2.3 H Total Protein Albumin Current Medications Generic Name Dose Route Start Last Admin Trade Name Freq PRN Reason Stop Dose Admin Acetaminophen 650 mg 08/30/19 18:02 08/31/19 08:47 Tylenol - PO 650 mg Q4H PRN Administration FEVER Aspirin 81 mg 08/30/19 10:00 08/31/19 09:06 Asa - PO 81 mg DAILY BRENDA Administration Atorvastatin Calcium 20 mg 08/30/19 22:00 08/30/19 22:04 Lipitor - PO 20 mg HS BRENDA Administration Heparin Sodium (Porcine) 5,000 unit 08/30/19 06:00 08/31/19 05:34 Heparin - SQ Not Given TID BRENDA Vancomycin HCl 1,000 mg in 250 mls @ 166.667 mls/hr 08/30/19 17:00 08/31/19 05:34 Vancomycin (Pre-Docked) IVPB 166.667 mls/hr BID@0500,1700 BRENDA Administration Ampicillin Sodium/Sulbactam 100 mls @ 200 mls/hr 08/30/19 21:00 08/31/19 08: 47 Sodium 3 gm/ Sodium Chloride IVPB 200 mls/hr Q6H-IV BRENDA Administration Home Medications Medication Instructions Recorded Finasteride [Proscar] 5 mg PO DAILY 12/15/17 Aspirin 81 mg PO DAILY 03/24/18 Atorvastatin Calcium 20 mg PO HS 03/24/18 Naproxen Sodium [Aleve] 2 tab PO ASDIR PRN 07/28/19 Potassium Citrate [Urocit-K] 15 meq PO BID 07/28/19 ASSESSMENT/PLAN 63 year old male with CAD s/p NSTEMI 2016 s/p PCI/Stent x 2 at [facility], HLD, BPH, Nephrolithiasis s/p lithotripsy, HLD, s/p ORIF to L elbow s/p recent fracture prox ulnar and radial head, presented to the ED complaining of central "tight" chest/epigastric pain with associated SOB, onset while dancing. He also has several day history of opening of L elbow wound with erythema/tenderness, and pustular discharge. 1. 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 Tmax 102.6 Blood and Wound Cx pending Seen by ID - empiric Vanco pending wound Cx. Unasyn added. for further ID and Ortho eval today Tylenol PRN for fever. Will repeat Flu swab given ongoing cough and fever. Chest imaging negative. 2. Atypical CP with background hx of CAD s/p PCI/Stent ECG - no acute changes TropI neg x 3 No telemonitoring events Elevated DDIMER - CTA Chest neg for PE/PNA Cardiology eval. Continue Aspirin/Statin 3. BPH - continue Proscar. 4. HLD - Continue Statin. DVT Px - Heparin SQ.
[2019-08-31] MEDS: SODIUM CHLORIDE 1,000 ML IV SCH (13:00)
--- NOTE | 2019-08-31 18:53 | PN ---
Progress Note (short form) - Note Progress Note: Pt lying in bed comfortable. Elbow feels more comfortable today. Vital Signs - 24 hr 08/30/19 08/30/19 08/30/19 18:54 20:00 21:00 Temperature 100 F H Pulse Rate 81 Respiratory 18 18 18 Rate Blood Pressure 112/66 O2 Sat by Pulse 97 96 96 Oximetry (%) 08/31/19 08/31/19 08/31/19 00:00 01:00 04:00 Temperature 100.5 F H Pulse Rate 94 H Respiratory 18 18 18 Rate Blood Pressure 114/71 O2 Sat by Pulse 96 96 Oximetry (%) 08/31/19 08/31/19 08/31/19 05:00 09:00 14:39 Temperature 100.5 F H 102.6 F H 100.1 F H Pulse Rate 83 87 82 Respiratory 18 22 H 18 Rate Blood Pressure 118/77 126/82 117/78 O2 Sat by Pulse 97 Oximetry (%) LUE no active drainage from wound mild warmth no palpable effusion mild erythema comfortable ROM NVID Tests: CT elbow report pending. Images reviewed. No collection seen. Cx shows gr+ cocci. Duplex LE negative. wbc 6 A: s/p ORIF L elbow P: pt seems to be responding to abx (less elbow pain, less erythema) will use splint to help wound heal, ok to remove for wound inspection f/u labs, fevers tomorrow
[2019-08-31] MEDS: ATORVASTATIN CA 20 MG TABLET (FP) PO SCH (21:09)
[2019-09-01] MEDS: AMPICILLIN NA/SULBACTAM NA 3 GM in SODIUM CHLORIDE 100 ML IVPB SCH ×2 (03:15→09:35)
[2019-09-01] MEDS: VANCOMYCIN 1 GRAM (PRE-DOCKED) 1,000 MG/250 ML BAG IVPB SCH ×2 (06:30→16:42)
[2019-09-01] MEDS: HEPARIN NA (PORCINE) 5,000 UNITS/ML 1ML VIAL SQ SCH ×3 (06:30→22:31)
[2019-09-01] MEDS: ACETAMINOPHEN 325 MG TABLET (FP) PO PRN ×2 (06:30→22:31)
[2019-09-01 07:20] LABS: BASO % 0.5 % (0-2.0); EOS % 0.7 % (0-4.5); HEMATOCRIT 42.7 % (35.4-49); HEMOGLOBIN 14.4 GM/dL (11.7-16.9); LYMPH % 14.2 % (8-40); MCH 29.6 pg (25.7-33.7); MCHC 33.6 g/dl (32.0-35.9); MEAN CELL VOLUME 87.9 fl (80-96); MEAN PLT VOLUME 7.9 fl (7.5-11.1); MONO % 16.6 % (3.8-10.2); PLATELET COUNT 150 K/MM3 (134-434); RBC 4.86 M/mm3 (4.00-5.60); RDW 14.9 % (11.9-15.9); WHITE BLOOD COUNT 4.5 K/mm3 (4.0-10.0)
[2019-09-01 07:48] LABS: BILIRUBIN,TOTAL 0.4 mg/dL (0.2-1); CALCIUM 8.3 mg/dL (8.5-10.1); POTASSIUM 3.6 mmol/L (3.5-5.1); TOT PROT 6.1 g/dl (6.4-8.2)
[2019-09-01] MEDS ORDERED: PT OWN MED DRAWER 7, Y5N ONE (08:35)
[2019-09-01] MEDS: ASPIRIN 81 MG CHEWABLE TABLETS PO SCH (09:35)
[2019-09-01] MEDS: SODIUM CHLORIDE 1,000 ML IV SCH (11:26)
--- NOTE | 2019-09-01 11:31 | PN ---
Progress Note, Physician History of Present Illness: seen and examined today in [facility]. no overnight events. no new complaints. no further chest pain. states he is feeling better. - Current Medication List Current Medications: Active Medications Acetaminophen (Tylenol -) 650 mg PO Q4H PRN PRN Reason: FEVER Last Admin: 09/01/19 06:30 Dose: 650 mg Aspirin (Asa -) 81 mg PO DAILY [facility] Last Admin: 09/01/19 09:35 Dose: 81 mg Atorvastatin Calcium (Lipitor -) 20 mg PO HS [facility] Last Admin: 08/31/19 21:09 Dose: 20 mg Heparin Sodium (Porcine) (Heparin -) 5,000 unit SQ TID [facility] Last Admin: 09/01/19 06:30 Dose: 5,000 unit Vancomycin HCl (Vancomycin (Pre-Docked)) 1,000 mg in 250 mls @ 166.667 mls/hr IVPB BID@0500,1700 [facility] Last Admin: 09/01/19 06:30 Dose: 166.667 mls/hr Ampicillin Sodium/Sulbactam (Sodium 3 gm/ Sodium Chloride) 100 mls @ 200 mls/ hr IVPB Q6H-IV [facility] Last Admin: 09/01/19 09:35 Dose: 200 mls/hr Sodium Chloride (Normal Saline -) 1,000 mls @ 75 mls/hr IV ASDIR [facility] Last Admin: 08/31/19 13:00 Dose: 75 mls/hr - Objective Vital Signs: Vital Signs Temperature 100.4 F H 09/01/19 08:52 Pulse Rate 96 H 09/01/19 08:52 Respiratory Rate 20 09/01/19 08:54 Blood Pressure 122/68 09/01/19 08:52 O2 Sat by Pulse Oximetry (%) 95 09/01/19 08:54 Constitutional: Yes: No Distress, Calm Eyes: Yes: Conjunctiva Clear, EOM Intact HENT: Yes: Atraumatic, Normocephalic Neck: Yes: Supple, Trachea Midline Cardiovascular: Yes: Regular Rate and Rhythm, S1, S2. No: Bradycardia, Tachycardia, Pulse Irregular, Bruit, JVD, Gallop, Murmur, Rub, S3, S4, Varicosities, Other Respiratory: Yes: Regular, CTA Bilaterally. No: Rales, Rhonchi, Wheezes Gastrointestinal: Yes: Normal Bowel Sounds, Soft. No: Distention, Tenderness Musculoskeletal: Yes: WNL Extremities: Yes: WNL, External Rotation Peripheral Pulses WNL: Yes Peripheral Pulses: Left Doralis Pedis: 2+, Right Dorsalis Pedis: 2+ Neurological: Yes: Alert, Oriented Psychiatric: Yes: Alert, Oriented Labs: CBC, BMP 09/01/19 06:32 09/01/19 06:32 INR, PTT INR 1.09 (0.83-1.09) 08/29/19 23:30 - ....Imaging Chest X-ray: Report Reviewed, Image Reviewed EKG: Report Reviewed, Image Reviewed Other: Report Reviewed, Image Reviewed (tele-nsr, artifact, no sig arrhythmias) Assessment/Plan 63 year old male with a pmhx of bph, hld, nephrolithiasis s/p lithotripsy, and CAD s/p inferolateral STEMI 2016 s/p stenting x2 at [facility] and follows with Jorge Patel of [facility] who presents with feeling warm, epigastric pain, and nausea. Was dancing at an event and felt very warm and this was followed by epigastric pain and nausea. No significant chest pain. Developed a fever here to 102.6. +cough. +body aches. EKG: sinus rhythm with inferior infarct and poor R wave progression. 1) CAD -atypical chest pain on admission not c/w ACS -cardiac enzymes wnl -no sig arrhythmias on tele -no further chest pain -pain maybe secondary to infection -cont aspirin/statin -Not on beta janak as outpatient and bp well controlled -Abx as per primary team. Bld Cx's and wound Cx's of elbow. -no additional cardiac work up is needed at this time -can dc tele Will see as needed. Please call with any additional questions.
--- NOTE | 2019-09-01 12:05 | PN ---
Physical Exam: SUBJECTIVE: Patient seen and examined today. Pt T max overnight was 100.4, improved from yesterday no longer having the chills and myalgia. OBJECTIVE: Vital Signs Period Temp Pulse Resp BP Sys/Peters Pulse Ox Last 24 Hr 99.8 F-102.6 F 79-107 18-20 117-124/68-82 95-95 GENERAL: The patient is awake, alert, and fully oriented, in no acute distress. NECK: supple. LUNGS: Breath sounds equal, clear to auscultation bilaterally, no wheezes, no crackles, no accessory muscle use. HEART: Regular rate and rhythm, S1, S2 without murmur, rub or gallop. ABDOMEN: Soft, nontender, nondistended, normoactive bowel sounds. EXTREMITIES: 2+ pulses, warm, well-perfused, no edema. Lt elbow wrapped in splint, minimally warm to touch. NEUROLOGICAL: Cranial nerves II through XII grossly intact. Normal speech, gait not observed. SKIN: Warm, dry, normal turgor, no rashes or lesions noted Laboratory Results - last 24 hr 09/01/19 09/01/19 06:32 06:32 WBC 4.5 RBC 4.86 Hgb 14.4 Hct 42.7 MCV 87.9 MCH 29.6 MCHC 33.6 RDW 14.9 Plt Count 150 MPV 7.9 Absolute Neuts (auto) 3.1 Neutrophils % 68.0 Lymphocytes % 14.2 D Monocytes % 16.6 H Eosinophils % 0.7 Basophils % 0.5 Nucleated RBC % 0 Sodium 140 Potassium 3.6 Chloride 105 Carbon Dioxide 29 Anion Gap 6 L BUN 14.0 Creatinine 1.0 Est GFR (CKD-EPI)AfAm 93.08 Est GFR (CKD-EPI)NonAf 80.31 Random Glucose 102 Calcium 8.3 L Total Bilirubin 0.4 AST 34 ALT 44 Alkaline Phosphatase 63 Total Protein 6.1 L Albumin 3.0 L Active Medications Generic Name Dose Route Start Last Admin Trade Name Freq PRN Reason Stop Dose Admin Acetaminophen 650 mg 08/30/19 18:02 09/01/19 06:30 Tylenol - PO 650 mg Q4H PRN Administration FEVER Aspirin 81 mg 08/30/19 10:00 09/01/19 09:35 Asa - PO 81 mg DAILY BRENDA Administration Atorvastatin Calcium 20 mg 08/30/19 22:00 08/31/19 21:09 Lipitor - PO 20 mg HS BRENDA Administration Heparin Sodium (Porcine) 5,000 unit 08/30/19 06:00 09/01/19 06:30 Heparin - SQ 5,000 unit TID BRENDA Administration Vancomycin HCl 1,000 mg in 250 mls @ 166.667 mls/hr 08/30/19 17:00 09/01/19 06:30 Vancomycin (Pre-Docked) IVPB 166.667 mls/hr BID@0500,1700 BRENDA Administration Ampicillin Sodium/Sulbactam 100 mls @ 200 mls/hr 08/30/19 21:00 09/01/19 09: 35 Sodium 3 gm/ Sodium Chloride IVPB 200 mls/hr Q6H-IV BRENDA Administration Sodium Chloride 1,000 mls @ 75 mls/hr 08/31/19 12:15 09/01/19 11:26 Normal Saline - IV 75 mls/hr ASDIR BRENDA Administration ASSESSMENT/PLAN: 63 y/o F, pmh of CAD s/p stenting x2 in 2014 at [place], on ASA, BPH, HLD, nephrolithiasis s/p lithotripsy, presented to the ED c/o of constant, localized , "tight" like epigastric pain of a few minute duration admitted for atypical chest pain. #Atypical chest pain likely in setting of septic joint likely 2/2 indigestion vs GERD like symptoms vs Viral URI EKG NSR with inferior and anterior infarct of undetermined age. trop's negative , d dimer elevated so CTA done and was negative - ACS ruled out Flu swab rpt sent after initial one negative due to pt c/o stiff and achy muscles with fever and chills X 1 day and it was negative. cont ASA, statin, pt not on BB and BP controlled. CXR- no abnormalities can d/c tele per cardio #Left elbow surgical site drainage - s/p surgery - Hardware in situ ? infected ?septic joint - Tmax 102-> improved to 100.4 - wound culture growing mrsa - CT elbow w contrast- presumably negative for any effusion per ortho prelim read will wait for official read - placed in splint for imrproved wound healing. Ortho will continue following pt. - pt on unasyn and vanco will continue vanco for mrsa coverage. - ID consulted (Lizette) will continue abx. - duplex LE's negative #CAD cont ASA statin #BPH Proscar #HLD cnt Lipitor DVT ppx Hep TID sq FEN regular diet monitor lytes IVF at 50 Dispo: f/u labs, if pt remains asymptomatic can consider discharge, monitor on tele Visit type - Emergency Visit Emergency Visit: Yes ED Registration Date: 08/30/19 Care time: The patient presented to the Emergency Department on the above date and was hospitalized for further evaluation of their emergent condition. - New Patient This patient is new to me today: No - Critical Care Critical Care patient: No - Discharge Referral Referred to [facility] Med P.C.: No ATTENDING PHYSICIAN STATEMENT I saw and evaluated the patient. I reviewed the resident's note and discussed the case with the resident. I agree with the resident's findings and plan as documented. SUBJECTIVE: OBJECTIVE: ASSESSMENT AND PLAN:
--- NOTE | 2019-09-01 12:48 | PN ---
Teaching Attending Note Name of Resident: Tariq Bright ATTENDING PHYSICIAN STATEMENT I saw and evaluated the patient. I reviewed the resident's note and discussed the case with the resident. I agree with the resident's findings and plan as documented. Seen and examined; please see resident note for further historical information. I personally verified all grnade historical information and exam findings. Personally interpreted all imaging and diagnostics and reviewed appropriate consults. I reviewed all labs and vital signs as per resident note and EMR as documented. I agree with the above assessment and plan unless supplemented by myself in the following. Patient seen and examined. Denies any chest pain, shortness of breath. No overnight events noted. Plan to discontinue telemetry 10 item review of systems completed and is negative aside from as discussed in the subjective data in my own/the resident documentation. VS, labs, imaging reviewed NAD, AAO, resting comfortably in bed. RRR s1/2 no mgr Normal muscle tone, moves all 5 extremities with normal apparent strength Neck is supple, trachea midline, no cachorro LN Lungs CTAB with sym expansion NT ND +BS no cachorro organomegaly CN2-12 wnl; no FND NC AT EOMI PERRLA Normal mood, appropriate behavior, euthymic affect No skin breakdown or rashes noted Telemetry reviewed. EKG reviewed. Discontinuing telemetry. ASSESSMENT AND PLAN: Patient presents for chest pain and was found to have elbow infection, has been cleared from a cardiology perspective and is pending further orthopedic work- up. He will be taken off of telemetry, continued on his home medications, and can follow-up with his outpatient shoer. He can consider starting a beta -janak as an outpatient but I will note that he has had stable blood pressures here. No additional cardiac work-up needed. In terms of the orthopedic issuesThe upper extremity CT has been performed but is not read. If there is no underlying issues with this, we will try to to sensation the patient to oral antibiotics and discharge. Problems include: Acute cellulitis plus or minus joint infection of the elbow Coronary artery disease, stable Chest pain, noncardiac. History of hypertension, History of BPH History of hyperlipidemia History of inferolateral STEMI 2016 status post stenting [place]. Full code, discharge pending orthopedic evaluation
--- NOTE | 2019-09-01 13:06 | PN ---
Progress Note, Physician History of Present Illness: stable no new issues - Current Medication List Current Medications: Active Medications Acetaminophen (Tylenol -) 650 mg PO Q4H PRN PRN Reason: FEVER Last Admin: 09/01/19 06:30 Dose: 650 mg Aspirin (Asa -) 81 mg PO DAILY [facility] Last Admin: 09/01/19 09:35 Dose: 81 mg Atorvastatin Calcium (Lipitor -) 20 mg PO HS [facility] Last Admin: 08/31/19 21:09 Dose: 20 mg Heparin Sodium (Porcine) (Heparin -) 5,000 unit SQ TID [facility] Last Admin: 09/01/19 06:30 Dose: 5,000 unit Vancomycin HCl (Vancomycin (Pre-Docked)) 1,000 mg in 250 mls @ 166.667 mls/hr IVPB BID@0500,1700 [facility] Last Admin: 09/01/19 06:30 Dose: 166.667 mls/hr Ampicillin Sodium/Sulbactam (Sodium 3 gm/ Sodium Chloride) 100 mls @ 200 mls/ hr IVPB Q6H-IV [facility] Last Admin: 09/01/19 09:35 Dose: 200 mls/hr Sodium Chloride (Normal Saline -) 1,000 mls @ 75 mls/hr IV ASDIR [facility] Last Admin: 09/01/19 11:26 Dose: 75 mls/hr - Objective Vital Signs: Vital Signs Temperature 100.4 F H 09/01/19 08:52 Pulse Rate 96 H 09/01/19 08:52 Respiratory Rate 20 09/01/19 08:54 Blood Pressure 122/68 09/01/19 08:52 O2 Sat by Pulse Oximetry (%) 95 09/01/19 08:54 Constitutional: Yes: No Distress, Calm Cardiovascular: Yes: S1, S2 Respiratory: Yes: Regular, CTA Bilaterally Gastrointestinal: Yes: Normal Bowel Sounds, Soft Musculoskeletal: Yes: WNL Extremities: Yes: Other Neurological: Yes: Alert, Oriented Psychiatric: Yes: Alert, Oriented Labs: CBC, BMP 09/01/19 06:32 09/01/19 06:32 INR, PTT INR 1.09 (0.83-1.09) 08/29/19 23:30 Assessment/Plan Problem List - Problems (1) Chest pain Code(s): R07.9 - CHEST PAIN, UNSPECIFIED Qualifiers: Chest pain type: unspecified Qualified Code(s): R07.9 - Chest pain, unspecified (2) Elbow fracture, left Code(s): S42.402A - UNSP FRACTURE OF LOWER END OF LEFT HUMERUS, INIT FOR CLOS FX Qualifiers: Encounter type: initial encounter Fracture type: closed Qualified Code(s) : S42.402A - Unspecified fracture of lower end of left humerus, initial encounter for closed fracture (3) S/P TURP Code(s): Z90.79 - ACQUIRED ABSENCE OF OTHER GENITAL ORGAN(S) Assessment/Plan 63 y.o. male with PMH of CAD s/p CO and stents x 2 in 2014, BPH s/p TURP, nephrolithiasis s/p lithotripsy and stent, HLD, and Lt elbow fracture s/p repair with hardware one month ago presents to the ER with c/o chest pain and SOB that began 1 hour prior to arrival. Lt elbow wound dehiscence noted with mild drainage/erythema. Lt elbow surgical site dehiscence/possible infection CP SOB/Cough CAD s/p CO BPH plan continue abx await for scan report rest as per the team
--- NOTE | 2019-09-01 15:52 | CONSULT ---
Consult Consult Specialty:: orthopedics - History of Present Illness History of Present Illness: 63-year-old male status post left olecranon fracture and radial head dislocation ORIF. He came to the emergency department a few days ago because he began having chest pain suddenly. He had extensive workup for this which was negative for CA or PE. he also felt sick and had some fevers and chills. his elbow was having a little bit of drainage when he came to the emergency department but he was not having any pain or any other problems with the elbow. He describes the drainage is clear. This drainage was swabbed and sent for culture and Gram stain and came back positive for MRSA. He states the elbow feels no different than it did a week ago. He has been doing therapy for the elbow. - History Source History Provided By: Patient - Past Medical History Cardio/Vascular: Yes: CAD, Hyperlipdemia Renal/: Yes: BPH, Renal Calculi Musculoskeletal: Yes: Other (Lt elbow shattered) - Past Surgical History Past Surgical History: Yes: Stent, TURP Additional Surgical History: Lt elbow fracture/hardware - Alcohol/Substance Use Hx Alcohol Use: No - Smoking History Smoking history: Never smoked Have you smoked in the past 12 months: No - Social History ADL: Independent History of Recent Travel: No Home Medications - Allergies Allergies/Adverse Reactions: Allergies Allergy/AdvReac Type Severity Reaction Status Date / Time No Known Drug Allergies Allergy Verified 09/08/19 14:05 - Home Medications Home Medications: Ambulatory Orders Finasteride [Proscar] 5 mg PO DAILY 12/15/17 Aspirin 81 mg PO DAILY 03/24/18 Atorvastatin Calcium 20 mg PO HS 03/24/18 Potassium Citrate ER 09/08/19 Review of Systems - Review of Systems Constitutional: reports: No Symptoms Eyes: reports: No Symptoms HENT: reports: No Symptoms Neck: reports: No Symptoms Cardiovascular: reports: No Symptoms Respiratory: reports: No Symptoms Gastrointestinal: reports: No Symptoms Genitourinary: reports: No Symptoms Breasts: reports: No Symptoms Reported Musculoskeletal: reports: No Symptoms Integumentary: reports: No Symptoms Neurological: reports: No Symptoms Endocrine: reports: No Symptoms Hematology/Lymphatic: reports: No Symptoms Psychiatric: reports: No Symptoms Physical Exam Vital Signs: Vital Signs Temperature 99.0 F 09/01/19 14:00 Pulse Rate 77 09/01/19 14:00 Respiratory Rate 20 21/20 14:00 Blood Pressure 124/79 09/01/19 14:00 O2 Sat by Pulse Oximetry (%) 95 09/01/19 08:54 Constitutional: Yes: Well Nourished, No Distress, Calm HENT: Yes: Atraumatic, Normocephalic Musculoskeletal: Yes: Other (left elbow: Surgical incision is healed. There is very scant drainage along a 4 x 4 at the tip of the olecranon. There is no pus or any other fluid that can be expressed from the wound. Range of motion is approximately 10 to 80 and approximately 50% pronation and supination. This is approximately what it was at his last office visit last week.there is no increased swelling or warmth of the elbow compared to last week. Neurovascularly intact distally) Labs: CBC, BMP 09/01/19 06:32 09/01/19 06:32 Imaging - Results Cat Scan: Image Reviewed (CT scan reviewed, report is not available yet. No evidence of osteomyelitis. Hardware is in place.) Assessment/Plan #1 status post left olecranon and radial head ORIF without evidence of infection I discussed today's findings and treatment options with the patient. I do not believe his fever or any of his other symptoms were coming from the elbow. There is slight drainage he is having from the elbow is more likely coming from a dissolving suture then an infectious process. I also believe that the MRSA swab is likely positive due to colonization of the skin and not from the drainage from the wound. I do not think antibiotics are necessary for treating a possible septic joint or other infective process of the elbow. He may be discharged from the orthopedic standpoint.
[2019-09-01] MEDS: ATORVASTATIN CA 20 MG TABLET (FP) PO SCH (22:31)
[2019-09-02] MEDS: VANCOMYCIN 1 GRAM (PRE-DOCKED) 1,000 MG/250 ML BAG IVPB SCH ×2 (06:15→17:53)
[2019-09-02] MEDS: HEPARIN NA (PORCINE) 5,000 UNITS/ML 1ML VIAL SQ SCH ×3 (06:23→21:08)
[2019-09-02 08:25] LABS: BASO % 0.3 % (0-2.0); EOS % 3.6 % (0-4.5); HEMATOCRIT 43.1 % (35.4-49); HEMOGLOBIN 14.4 GM/dL (11.7-16.9); LYMPH % 29.6 % (8-40); MCH 29.5 pg (25.7-33.7); MCHC 33.5 g/dl (32.0-35.9); MEAN CELL VOLUME 88.1 fl (80-96); MEAN PLT VOLUME 8.5 fl (7.5-11.1); MONO % 14.4 % (3.8-10.2); NEUT % 52.1 % (42.8-82.8); PLATELET COUNT 156 K/MM3 (134-434); RDW 14.7 % (11.9-15.9); WHITE BLOOD COUNT 3.6 K/mm3 (4.0-10.0)
[2019-09-02 08:42] LABS: BILIRUBIN,TOTAL 0.3 mg/dL (0.2-1); BLOOD UREA NITROGEN 13.7 mg/dL (7-18); CALCIUM 8.4 mg/dL (8.5-10.1); CREATININE 0.9 mg/dL (0.55-1.3); POTASSIUM 3.5 mmol/L (3.5-5.1); TOT PROT 5.9 g/dl (6.4-8.2)
--- NOTE | 2019-09-02 09:33 | PN ---
Teaching Attending Note Name of Resident: Tariq Bright ATTENDING PHYSICIAN STATEMENT I saw and evaluated the patient. I reviewed the resident's note and discussed the case with the resident. I agree with the resident's findings and plan as documented. Seen and examined; please see resident note for further historical information. I personally verified all grande historical information and exam findings. Personally interpreted all imaging and diagnostics and reviewed appropriate consults. I reviewed all labs and vital signs as per resident note and EMR as documented. I agree with the above assessment and plan unless supplemented by myself in the following. Low degree fever overnight; ortho feels that the patinet's elbow isn't infected. Checking UA given history; can consider spiral CT, etc. 10 item review of systems completed and is negative aside from as discussed in the subjective data in my own/the resident documentation. VS, labs, imaging reviewed NAD, AAO, resting comfortably in bed. RRR s1/2 no mgr Normal muscle tone, moves all 5 extremities with normal apparent strength Neck is supple, trachea midline, no cachorro LN Lungs CTAB with sym expansion NT ND +BS no cachorro organomegaly CN2-12 wnl; no FND NC AT EOMI PERRLA Normal mood, appropriate behavior, euthymic affect No skin breakdown or rashes noted Echocardiogram reviewed Cardiology consultation reviewed ASSESSMENT AND PLAN: Patient was seen by Dr. Julio yesterday and the orthopedic surgeon feels that there is no indication of underlying septic joint and that they may be discharged off of antibiotics. Discussed with infectious disease regarding converting to p.o. Problems Include: Fever; bladder scan to check PVRs and UA; followup UA and CXR. Checking flu. Coronary artery disease status post inferior lateral STEMI 2016 status post 2 times stenting at [place]. Renal calculi History of hypertension History of hyperlipidemia History of left elbow repair with hardware, suspected cellulitis, felt unlikely secondary to the orthopedic consult BPH on finasteride Full Code
[2019-09-02] MEDS: ASPIRIN 81 MG CHEWABLE TABLETS PO SCH (09:44)
[2019-09-02] MEDS: SODIUM CHLORIDE 1,000 ML IV SCH (09:44)
--- NOTE | 2019-09-02 10:38 | PN ---
Physical Exam: SUBJECTIVE: Patient seen and examined at bedside this AM. Pt had a Tmax of 100.9 overnight and wbc dropping daily to now low of 3.6. CXR ordered b c patient has been coughing and wheezing on exam. Pt with increased urgency and dysuria of 1 day so will order stat UA. OBJECTIVE: Vital Signs Period Temp Pulse Resp BP Sys/Peters Pulse Ox Last 24 Hr 77 F-100.9 F 60-77 18-20 109-126/67-79 96 GENERAL: The patient is awake, alert, and fully oriented, in no acute distress. NECK: supple. LUNGS: Breath sounds equal, clear to auscultation bilaterally, wheezes present at base, no crackles, no accessory muscle use. HEART: Regular rate and rhythm, S1, S2 without murmur, rub or gallop. ABDOMEN: Soft, nontender, nondistended, normoactive bowel sounds, no guarding. EXTREMITIES: 2+ pulses, warm, well-perfused, no edema. SKIN: Warm, dry, normal turgor, no rashes or lesions noted Laboratory Results - last 24 hr 09/02/19 09/02/19 05:35 05:35 WBC 3.6 L RBC 4.90 Hgb 14.4 Hct 43.1 MCV 88.1 MCH 29.5 MCHC 33.5 RDW 14.7 Plt Count 156 MPV 8.5 Absolute Neuts (auto) 1.9 Neutrophils % 52.1 D Lymphocytes % 29.6 D Monocytes % 14.4 H Eosinophils % 3.6 D Basophils % 0.3 Nucleated RBC % 0 Sodium 140 Potassium 3.5 Chloride 105 Carbon Dioxide 28 Anion Gap 7 L BUN 13.7 Creatinine 0.9 Est GFR (CKD-EPI)AfAm 105.72 Est GFR (CKD-EPI)NonAf 91.22 Random Glucose 102 Calcium 8.4 L Total Bilirubin 0.3 AST 33 ALT 47 Alkaline Phosphatase 59 Total Protein 5.9 L Albumin 3.0 L Active Medications Generic Name Dose Route Start Last Admin Trade Name Freq PRN Reason Stop Dose Admin Acetaminophen 650 mg 08/30/19 18:02 09/01/19 22:31 Tylenol - PO 650 mg Q4H PRN Administration FEVER Aspirin 81 mg 08/30/19 10:00 09/02/19 09:44 Asa - PO 81 mg DAILY BRENDA Administration Atorvastatin Calcium 20 mg 08/30/19 22:00 09/01/19 22:31 Lipitor - PO 20 mg HS BRENDA Administration Heparin Sodium (Porcine) 5,000 unit 08/30/19 06:00 09/02/19 06:23 Heparin - SQ 5,000 unit TID BRENDA Administration Vancomycin HCl 1,000 mg in 250 mls @ 166.667 mls/hr 08/30/19 17:00 09/02/19 06:15 Vancomycin (Pre-Docked) IVPB 166.667 mls/hr BID@0500,1700 BRENDA Administration Sodium Chloride 1,000 mls @ 75 mls/hr 08/31/19 12:15 09/02/19 09:44 Normal Saline - IV 75 mls/hr ASDIR BRENDA Administration ASSESSMENT/PLAN: 63 y/o F, pmh of CAD s/p stenting x2 in 2014 at [place], on ASA, BPH, HLD, nephrolithiasis s/p lithotripsy, presented to the ED c/o of constant, localized , "tight" like epigastric pain of a few minute duration admitted for atypical chest pain. #Atypical chest pain likely in setting of septic joint likely 2/2 indigestion vs GERD like symptoms vs Viral URI EKG NSR with inferior and anterior infarct of undetermined age. trop's negative , d dimer elevated so CTA done and was negative - ACS ruled out Flu swab rpt sent after initial one negative due to pt c/o stiff and achy muscles with fever and chills X 1 day and it was negative. cont ASA, statin, pt not on BB and BP controlled. CXR- no abnormalities can d/c tele per cardio #Left elbow surgical site drainage - s/p surgery - Hardware in situ ? infected ?septic joint - Tmax 102-> improved to 100.4 - wound culture growing mrsa - CT elbow w contrast- presumably negative for any effusion per ortho prelim read will wait for official read - placed in splint for imrproved wound healing. Ortho will continue following pt. - pt on unasyn and vanco will continue vanco for mrsa coverage. - ID consulted (Lizette) will continue abx. - duplex LE's negative - today wbc at 3.6 but normal Absolute neutrophil count, despite continuously downtrending wbc in this admission. Elevated neut % and lymphocyte and monocyte %. - Ordered stat cxr given pt coughing white sputum, UA for dysuria and urgency, will assess after these results. Pt admits to of kidney stones requiring JJ stent and ESWL in past. Flu swab sent just to assess given ongoing low grade fevers overnight. #CAD cont ASA statin - hypoproteinemia during admission likely due to pt's diet being low protein per CAD hx he gave up red meat. #BPH Proscar #HLD cnt Lipitor DVT ppx Hep TID sq FEN regular diet monitor lytes IVF at 50 Dispo: f/u labs, if pt remains asymptomatic can consider discharge and receive IV vanco at infusion center daily for 10 days. Visit type - Emergency Visit Emergency Visit: Yes ED Registration Date: 08/30/19 Care time: The patient presented to the Emergency Department on the above date and was hospitalized for further evaluation of their emergent condition. - New Patient This patient is new to me today: No - Critical Care Critical Care patient: No - Discharge Referral Referred to [facility] Med P.C.: No ATTENDING PHYSICIAN STATEMENT I saw and evaluated the patient. I reviewed the resident's note and discussed the case with the resident. I agree with the resident's findings and plan as documented. SUBJECTIVE: OBJECTIVE: ASSESSMENT AND PLAN:
--- NOTE | 2019-09-02 11:23 | PN ---
Progress Note, Physician History of Present Illness: stable doing well awaitng for reports pain while movement of elbow still with cough - Current Medication List Current Medications: Active Medications Acetaminophen (Tylenol -) 650 mg PO Q4H PRN PRN Reason: FEVER Last Admin: 09/01/19 22:31 Dose: 650 mg Aspirin (Asa -) 81 mg PO DAILY [facility] Last Admin: 09/02/19 09:44 Dose: 81 mg Atorvastatin Calcium (Lipitor -) 20 mg PO HS [facility] Last Admin: 09/01/19 22:31 Dose: 20 mg Heparin Sodium (Porcine) (Heparin -) 5,000 unit SQ TID [facility] Last Admin: 09/02/19 06:23 Dose: 5,000 unit Vancomycin HCl (Vancomycin (Pre-Docked)) 1,000 mg in 250 mls @ 166.667 mls/hr IVPB BID@0500,1700 [facility] Last Admin: 09/02/19 06:15 Dose: 166.667 mls/hr Sodium Chloride (Normal Saline -) 1,000 mls @ 75 mls/hr IV ASDIR [facility] Last Admin: 09/02/19 09:44 Dose: 75 mls/hr - Objective Vital Signs: Vital Signs Temperature 98.2 F 09/02/19 10:00 Pulse Rate 72 09/02/19 10:00 Respiratory Rate 18 09/02/19 10:00 Blood Pressure 114/78 09/02/19 10:00 O2 Sat by Pulse Oximetry (%) 96 09/01/19 21:00 Constitutional: Yes: No Distress, Calm Cardiovascular: Yes: S1, S2 Respiratory: Yes: Regular, CTA Bilaterally Gastrointestinal: Yes: Normal Bowel Sounds, Soft Musculoskeletal: Yes: WNL Extremities: Yes: Other (elbow wound) Neurological: Yes: Alert, Oriented Psychiatric: Yes: Alert, Oriented Labs: CBC, BMP 09/02/19 05:35 09/02/19 05:35 INR, PTT INR 1.09 (0.83-1.09) 08/29/19 23:30 Assessment/Plan Problem List - Problems (1) Chest pain Code(s): R07.9 - CHEST PAIN, UNSPECIFIED Qualifiers: Chest pain type: unspecified Qualified Code(s): R07.9 - Chest pain, unspecified (2) Elbow fracture, left Code(s): S42.402A - UNSP FRACTURE OF LOWER END OF LEFT HUMERUS, INIT FOR CLOS FX Qualifiers: Encounter type: initial encounter Fracture type: closed Qualified Code(s) : S42.402A - Unspecified fracture of lower end of left humerus, initial encounter for closed fracture (3) S/P TURP Code(s): Z90.79 - ACQUIRED ABSENCE OF OTHER GENITAL ORGAN(S) Assessment/Plan 63 y.o. male with PMH of CAD s/p [place] and stents x 2 in 2014, BPH s/p TURP, nephrolithiasis s/p lithotripsy and stent, HLD, and Lt elbow fracture s/p repair with hardware one month ago presents to the ER with c/o chest pain and SOB that began 1 hour prior to arrival. Lt elbow wound dehiscence noted with mild drainage/erythema. Lt elbow surgical site dehiscence/possible infection CP SOB/Cough CAD s/p MD BPH plan continue abx await for cx report consider doing ct scan of the elbow ortho to see the patient spoke to the and son
[2019-09-02 12:02] LABS: URINE APPEARANCE CLEAR; URINE BILIRUBIN NEGATIVE (NEGATIVE); URINE COLOR YELLOW; URINE GLUCOSE (UA) NEGATIVE (NEGATIVE); URINE KETONE NEGATIVE (NEGATIVE); URINE LEUK ESTERASE NEGATIVE (NEGATIVE); URINE NITRITE NEGATIVE (NEGATIVE); URINE PROTEIN NEGATIVE (NEGATIVE); URINE UROBILINOGEN 0.2 mg/dL (0.2-1.0)
--- NOTE | 2019-09-02 12:07 | PN ---
Progress Note, Physician History of Present Illness: stable no new issues - Current Medication List Current Medications: Active Medications Acetaminophen (Tylenol -) 650 mg PO Q4H PRN PRN Reason: FEVER Last Admin: 09/01/19 22:31 Dose: 650 mg Aspirin (Asa -) 81 mg PO DAILY [facility] Last Admin: 09/02/19 09:44 Dose: 81 mg Atorvastatin Calcium (Lipitor -) 20 mg PO HS [facility] Last Admin: 09/01/19 22:31 Dose: 20 mg Heparin Sodium (Porcine) (Heparin -) 5,000 unit SQ TID [facility] Last Admin: 09/02/19 06:23 Dose: 5,000 unit Vancomycin HCl (Vancomycin (Pre-Docked)) 1,000 mg in 250 mls @ 166.667 mls/hr IVPB BID@0500,1700 [facility] Last Admin: 09/02/19 06:15 Dose: 166.667 mls/hr Sodium Chloride (Normal Saline -) 1,000 mls @ 75 mls/hr IV ASDIR [facility] Last Admin: 09/02/19 09:44 Dose: 75 mls/hr - Objective Vital Signs: Vital Signs Temperature 98.2 F 09/02/19 10:00 Pulse Rate 72 09/02/19 10:00 Respiratory Rate 18 09/02/19 10:00 Blood Pressure 114/78 09/02/19 10:00 O2 Sat by Pulse Oximetry (%) 96 09/02/19 09:00 Constitutional: Yes: No Distress, Calm Cardiovascular: Yes: S1, S2 Respiratory: Yes: Regular, CTA Bilaterally Gastrointestinal: Yes: Normal Bowel Sounds, Soft Musculoskeletal: Yes: WNL Extremities: Yes: Other Wound/Incision: Yes: Clean/Dry Neurological: Yes: Alert, Oriented Psychiatric: Yes: Alert, Oriented Labs: CBC, BMP 09/02/19 05:35 09/02/19 05:35 INR, PTT INR 1.09 (0.83-1.09) 08/29/19 23:30 Assessment/Plan Problem List - Problems (1) Chest pain Code(s): R07.9 - CHEST PAIN, UNSPECIFIED Qualifiers: Chest pain type: unspecified Qualified Code(s): R07.9 - Chest pain, unspecified (2) Elbow fracture, left Code(s): S42.402A - UNSP FRACTURE OF LOWER END OF LEFT HUMERUS, INIT FOR CLOS FX Qualifiers: Encounter type: initial encounter Fracture type: closed Qualified Code(s) : S42.402A - Unspecified fracture of lower end of left humerus, initial encounter for closed fracture (3) S/P TURP Code(s): Z90.79 - ACQUIRED ABSENCE OF OTHER GENITAL ORGAN(S) Assessment/Plan 63 y.o. male with PMH of CAD s/p [place] and stents x 2 in 2014, BPH s/p TURP, nephrolithiasis s/p lithotripsy and stent, HLD, and Lt elbow fracture s/p repair with hardware one month ago presents to the ER with c/o chest pain and SOB that began 1 hour prior to arrival. Lt elbow wound dehiscence noted with mild drainage/erythema. Lt elbow surgical site dehiscence/possible infection CP SOB/Cough CAD s/p [place] BPH plan continue abx await for scan report await for trough once we have the scan report will decide final plan
[2019-09-02] MEDS ORDERED: SODIUM CHLORIDE 1,000 ML IV SCH (20:05)
[2019-09-02] MEDS ORDERED: ACETAMINOPHEN 325 MG TABLET (FP) PO PRN (20:05)
[2019-09-02] MEDS ORDERED: ATORVASTATIN CA 20 MG TABLET (FP) PO SCH (22:00)
[2019-09-03] MEDS ORDERED: VANCOMYCIN 1 GRAM (PRE-DOCKED) 1,000 MG/250 ML BAG IVPB SCH (05:00)
[2019-09-03] MEDS: HEPARIN NA (PORCINE) 5,000 UNITS/ML 1ML VIAL SQ SCH ×2 (05:44→14:17)
[2019-09-03 08:17] LABS: HEMATOCRIT 41.6 % (35.4-49); HEMOGLOBIN 13.8 GM/dL (11.7-16.9); MCH 29.3 pg (25.7-33.7); MCHC 33.3 g/dl (32.0-35.9); MEAN CELL VOLUME 88.1 fl (80-96); MEAN PLT VOLUME 8.3 fl (7.5-11.1); PLATELET COUNT 166 K/MM3 (134-434); RBC 4.72 M/mm3 (4.00-5.60); RDW 14.4 % (11.9-15.9); WHITE BLOOD COUNT 3.3 K/mm3 (4.0-10.0)
[2019-09-03 09:04] LABS: BILIRUBIN,TOTAL 0.3 mg/dL (0.2-1); BLOOD UREA NITROGEN 11.7 mg/dL (7-18); CALCIUM 8.5 mg/dL (8.5-10.1); CREATININE 0.9 mg/dL (0.55-1.3); POTASSIUM 3.6 mmol/L (3.5-5.1); TOT PROT 6.2 g/dl (6.4-8.2)
--- NOTE | 2019-09-03 09:18 | PN ---
Teaching Attending Note Name of Resident: Tariq Bright ATTENDING PHYSICIAN STATEMENT I saw and evaluated the patient. I reviewed the resident's note and discussed the case with the resident. I agree with the resident's findings and plan as documented. Seen and examined; please see resident note for further historical information. I personally verified all grande historical information and exam findings. Personally interpreted all imaging and diagnostics and reviewed appropriate consults. I reviewed all labs and vital signs as per resident note and EMR as documented. I agree with the above assessment and plan unless supplemented by myself in the following. No events reported overnight, agree with resident subjective information. Discussed case with infectious disease and radiology. The patient is indicated as not wanting the bone scan, and this was further discussed with subspecialists and orthopedics recommended against bone scan. Infectious disease states that the patient may be discharged home on p.o. antibiotics he has no new symptoms and he is hemodynamically stable and afebrile. He has benefited maximally from this hospitalization. He will follow-up with cardiology, orthopedic surgery, infectious disease, and primary care. His chest pain was determined to be likely noncardiac in origin, he did not have any deep-seated joint infection noted and orthopedic surgery agrees that this is also unlikely which is been opinion shared by infectious disease at this juncture. He may resume his home diet. New medications would be the antibiotics as delineated in the medication list that was discussed at length with the resident of record. May resume home activity level. 10 item review of systems completed and is negative aside from as discussed in the subjective data in my own/the resident documentation. VS, labs, imaging reviewed NAD, AAO, resting comfortably in bed. RRR s1/2 no mgr Normal muscle tone, moves all 5 extremities with normal apparent strength Neck is supple, trachea midline, no cachorro LN Lungs CTAB with sym expansion NT ND +BS no cachorro organomegaly CN2-12 wnl; no FND NC AT EOMI PERRLA Normal mood, appropriate behavior, euthymic affect No skin breakdown or rashes noted Discharge disposition is to home, 40 minutes were spent in the preparation of this discharge
--- NOTE | 2019-09-03 09:40 | PN ---
Progress Note, Physician History of Present Illness: stable' no new issues - Current Medication List Current Medications: Active Medications Acetaminophen (Tylenol -) 650 mg PO Q4H PRN PRN Reason: FEVER Aspirin (Asa -) 81 mg PO DAILY [facility] Atorvastatin Calcium (Lipitor -) 20 mg PO HS [facility] Last Admin: 09/02/19 21:08 Dose: 20 mg Heparin Sodium (Porcine) (Heparin -) 5,000 unit SQ TID [facility] Last Admin: 09/03/19 05:44 Dose: 5,000 unit Sodium Chloride (Normal Saline -) 1,000 mls @ 75 mls/hr IV ASDIR [facility] Last Admin: 09/02/19 20:53 Dose: Not Given Vancomycin HCl (Vancomycin (Pre-Docked)) 1,000 mg in 250 mls @ 166.667 mls/hr IVPB BID@0500,1700 [facility] Last Admin: 09/03/19 05:44 Dose: 166.667 mls/hr - Objective Vital Signs: Vital Signs Temperature 98.9 F 09/03/19 05:00 Pulse Rate 68 09/03/19 05:00 Respiratory Rate 18 09/03/19 05:00 Blood Pressure 111/71 09/03/19 05:00 O2 Sat by Pulse Oximetry (%) 96 09/02/19 21:00 Constitutional: Yes: No Distress, Calm Cardiovascular: Yes: S1, S2 Respiratory: Yes: Regular, CTA Bilaterally Musculoskeletal: Yes: WNL Extremities: Yes: WNL Wound/Incision: Yes: Clean/Dry Neurological: Yes: Alert, Oriented Psychiatric: Yes: Alert, Oriented Labs: CBC, BMP 09/03/19 06:50 09/03/19 06:50 INR, PTT INR 1.09 (0.83-1.09) 08/29/19 23:30 Assessment/Plan Problem List - Problems (1) Chest pain Code(s): R07.9 - CHEST PAIN, UNSPECIFIED Qualifiers: Chest pain type: unspecified Qualified Code(s): R07.9 - Chest pain, unspecified (2) Elbow fracture, left Code(s): S42.402A - UNSP FRACTURE OF LOWER END OF LEFT HUMERUS, INIT FOR CLOS FX Qualifiers: Encounter type: initial encounter Fracture type: closed Qualified Code(s) : S42.402A - Unspecified fracture of lower end of left humerus, initial encounter for closed fracture (3) S/P TURP Code(s): Z90.79 - ACQUIRED ABSENCE OF OTHER GENITAL ORGAN(S) Assessment/Plan 63 y.o. male with PMH of CAD s/p [place] and stents x 2 in 2014, BPH s/p TURP, nephrolithiasis s/p lithotripsy and stent, HLD, and Lt elbow fracture s/p repair with hardware one month ago presents to the ER with c/o chest pain and SOB that began 1 hour prior to arrival. Lt elbow wound dehiscence noted with mild drainage/erythema. Lt elbow surgical site dehiscence/possible infection CP SOB/Cough CAD s/p [place] BPH plan continue abx scan if negative can change to oral abx
[2019-09-03] MEDS ORDERED: ASPIRIN 81 MG CHEWABLE TABLETS PO SCH (10:00)
--- NOTE | 2019-09-03 12:15 | DS ---
Physical Exam: SUBJECTIVE: Patient seen and examined. No acute events. Afebrile. OBJECTIVE: Vital Signs Period Temp Pulse Resp BP Sys/Peters Pulse Ox Last 24 Hr 98.2 F-98.9 F 60-69 18-20 110-125/65-76 96 PHYSICAL EXAM GENERAL: The patient is awake, alert, and fully oriented, in no acute distress. LUNGS: Breath sounds equal, clear to auscultation bilaterally, no wheezes, no crackles, no accessory muscle use. HEART: Regular rate and rhythm, S1, S2 without murmur, rub or gallop. ABDOMEN: Soft, nontender, nondistended, normoactive bowel sounds, no guarding, no rebound, no hepatosplenomegaly, no masses. EXTREMITIES: 2+ pulses, warm, well-perfused, no edema. Left elbow no drainage, no longer erythematous and warm to touch, mildly tender to palpation. LABS Laboratory Results - last 24 hr 09/02/19 09/02/19 09/03/19 11:00 12:30 06:50 WBC 3.3 L RBC 4.72 Hgb 13.8 Hct 41.6 MCV 88.1 MCH 29.3 MCHC 33.3 RDW 14.4 Plt Count 166 MPV 8.3 Sodium Potassium Chloride Carbon Dioxide Anion Gap BUN Creatinine Est GFR (CKD-EPI)AfAm Est GFR (CKD-EPI)NonAf Random Glucose Calcium Total Bilirubin AST ALT Alkaline Phosphatase Total Protein Albumin Vancomycin Pre-Dose 20.1 Influenza A (Rapid) Negative Influenza B (Rapid) Negative 09/03/19 06:50 WBC RBC Hgb Hct MCV MCH MCHC RDW Plt Count MPV Sodium 138 Potassium 3.6 Chloride 105 Carbon Dioxide 26 Anion Gap 8 BUN 11.7 Creatinine 0.9 Est GFR (CKD-EPI)AfAm 105.72 Est GFR (CKD-EPI)NonAf 91.22 Random Glucose 132 H Calcium 8.5 Total Bilirubin 0.3 AST 29 ALT 48 Alkaline Phosphatase 60 Total Protein 6.2 L Albumin 3.0 L Vancomycin Pre-Dose Influenza A (Rapid) Influenza B (Rapid) HOSPITAL COURSE: Date of Admission: Images: CT elbow w contrast- presumably negative for any effusion per ortho prelim read will wait for official read CXR- no abnormalities - duplex LE'x negative 63 y/o F, pmh of CAD s/p stenting x2 in 2014 at [place], on ASA, BPH, HLD, nephrolithiasis s/p lithotripsy, presented to the ED c/o of constant, localized , "tight" like epigastric pain of a few minute duration admitted for atypical chest pain. #Atypical chest pain likely in setting of septic joint likely 2/2 indigestion vs GERD like symptoms vs Viral URI EKG NSR with inferior and anterior infarct of undetermined age. trop's negative , d dimer elevated so CTA done and was negative - ACS ruled out cont ASA, statin, pt not on BB and BP controlled. #Left elbow surgical site drainage - s/p surgery - likely septic jt but improved vastly w vanco, will send pt home on doxy 100 BID X 14 days per ID recs. Ortho would like no bone scan and just have pt follow up in there clinic as o/p. -afebrile - placed in splint for imrproved wound healing. Ortho will continue following pt. - pt on vanco will continue vanco for mrsa coverage. - ID (Lizette) will continue abx. - today wbc at 3.3 but normal Absolute neutrophil count, despite continuously downtrending wbc in this admission. Elevated neut % and lymphocyte and monocyte %. #CAD cont ASA statin - hypoproteinemia during admission likely due to pt's diet being low protein per CAD hx he gave up red meat. #BPH Proscar #HLD cnt Lipitor DVT ppx Hep TID sq FEN regular diet monitor lytes IVF at 51 Date of Discharge: 09/03/19 Minutes to complete discharge: 35 <Tariq Bright - Last Filed: 09/03/19 12:16> Physical Exam: SUBJECTIVE: Patient seen and examined OBJECTIVE: PHYSICAL EXAM GENERAL: The patient is awake, alert, and fully oriented, in no acute distress. HEAD: Normal with no signs of trauma. EYES: PERRL, extraocular movements intact, sclera anicteric, conjunctiva clear. ENT: Ears normal, nares patent, oropharynx clear without exudates, moist mucous membranes. NECK: Trachea midline, full range of motion, supple. LUNGS: Breath sounds equal, clear to auscultation bilaterally, no wheezes, no crackles, no accessory muscle use. HEART: Regular rate and rhythm, S1, S2 without murmur, rub or gallop. ABDOMEN: Soft, nontender, nondistended, normoactive bowel sounds, no guarding, no rebound, no hepatosplenomegaly, no masses. EXTREMITIES: 2+ pulses, warm, well-perfused, no edema. NEUROLOGICAL: Cranial nerves II through XII grossly intact. Normal speech, gait not observed. PSYCH: Normal mood, normal affect. SKIN: Warm, dry, normal turgor, no rashes or lesions noted. LABS HOSPITAL COURSE: Date of Admission:08/30/19 Date of Discharge: 09/21/19 <Rao Padilla - Last Filed: 09/21/19 06:38> Discharge Summary Problems reviewed: Yes Reason For Visit: CHEST PAIN - Home Medications Comprehensive Discharge Medication List: Ambulatory Orders Finasteride [Proscar] 5 mg PO DAILY 12/15/17 Aspirin 81 mg PO DAILY 03/24/18 Atorvastatin Calcium 20 mg PO HS 03/24/18 Doxycycline Monohydrate [Monodox] 100 mg PO Q12H #28 capsule 09/03/19 <Tariq Bright - Last Filed: 09/03/19 12:16> Problems reviewed: Yes - Home Medications Comprehensive Discharge Medication List: Ambulatory Orders Finasteride [Proscar] 5 mg PO DAILY 12/15/17 Aspirin 81 mg PO DAILY 03/24/18 Atorvastatin Calcium 20 mg PO HS 03/24/18 Potassium Citrate ER 09/08/19 <Rao Padilla - Last Filed: 09/21/19 06:38> Condition: Stable - Instructions Diet, Activity, Other Instructions: You were admitted for an infection in your left elbow after your elbow surgery. We did imaging of your elbow to assess the elbow for fluid or infection and it was normal. We treated you with antibiotics and monitored you for fevers. You are now not having any fevers now and are stable enough for discharge. Medication to continue taking after dischare: 100mg by mouth twice a day of Doxycline for 14 days (28 pills). You should continue all your other home medications as prescribed. You should follow up with your primary care doctor in 3-5 days. You should follow up with your Orthopedic doctor in 1 week to check the elbow. You should return to the ER if you have any worsening of your current symptoms or: chest pain, shortness of breath, abdominal pain, weakness. Referrals: Raul Lobato MD [Staff Physician] - 1 Week Trey Weir MD [Primary Care Provider] - 1 Week Disposition: HOME - Discharge Referral Referred to [facility] No <Tariq Bright - Last Filed: 09/03/19 12:16> This patient is new to me today: No Emergency Visit: No Critical Care patient: No - Discharge Referral Referred to [facility] No <Rao Padilla - Last Filed: 09/21/19 06:38> ATTENDING PHYSICIAN STATEMENT I saw and evaluated the patient. I reviewed the resident's note and discussed the case with the resident. I agree with the resident's findings and plan as documented. SUBJECTIVE: OBJECTIVE: ASSESSMENT AND PLAN: <Tariq Bright - Last Filed: 09/03/19 12:16> ATTENDING PHYSICIAN STATEMENT I saw and evaluated the patient. I reviewed the resident's note and discussed the case with the resident. I agree with the resident's findings and plan as documented. SUBJECTIVE: OBJECTIVE: ASSESSMENT AND PLAN: <Rao Padilla - Last Filed: 09/21/19 06:38>
[2019-09-03 15:04] VITALS: BP 112/75; PULSE 61; TEMP 98.7
== END 2019-09-03 15:33 | disposition home or self-care (01) | DRG 863 ==
LOC: JER 22:46 → JERBED 08-30 00:24 → OBSVTOIN 08-30 02:18 → J4W 08-30 17:23 → J7W 09-02 19:41
PROVIDERS: ADMIT Internal Medicine; ATTEND Internal Medicine
DX: T81.40XA Infection following a procedure, unspecified, initial encounter (principal); R07.89 Other chest pain; I25.10 Atherosclerotic heart disease of native coronary artery without angina pectoris; Z95.5 Presence of coronary angioplasty implant and graft; N40.0 Benign prostatic hyperplasia without lower urinary tract symptoms; E78.5 Hyperlipidemia, unspecified; Y83.9 Surgical procedure, unspecified as the cause of abnormal reaction of the patient, or of later complication, without mention of misadventure at the time of the procedure
CPT/HCPCS: 36415; 71045-TC-FY; 71275-TC; 73201-TC-RT; 80053; 81003; 82550; 82553; 83735; 83880; 84484; 85025; 85027; 85379; 85610; 85651; 85730; 86140; 87040; 87070; 87186; 87205; 87804; 87880; 93005; 93010; 93970-TC; 99285-25; G0378; G0480; J1644; J7030; Q9967

== ENCOUNTER 2019-09-08 13:48 | Emergency (ER) | payer BC, OTHER ==
[2019-09-08 14:13] VITALS: BP 130/85; PULSE 60; TEMP 97.5; BMI 26.2
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
[2019-09-08] MEDS ORDERED: ACETAMINOPHEN 500 MG TABLET (FP) PO ONE (15:10)
[2019-09-08] MEDS ORDERED: ACETAMINOPHEN 500 MG TABLET (FP) ONE (15:14)
== END 2019-09-08 15:57 | disposition home or self-care (01) ==
LOC: FER 13:48
DX: S59.901A Unspecified injury of right elbow, initial encounter (principal); V43.52XA Car driver injured in collision with other type car in traffic accident, initial encounter; Y93.89 Activity, other specified; Y92.410 Unspecified street and highway as the place of occurrence of the external cause; Z95.5 Presence of coronary angioplasty implant and graft; I10 Essential (primary) hypertension; E78.00 Pure hypercholesterolemia, unspecified; I25.2 Old myocardial infarction; E11.9 Type 2 diabetes mellitus without complications
CPT/HCPCS: 73070-TC-LT-FY; 99282-25